=== PATIENT | male | born 1970 | race African-American/Black ===

== ENCOUNTER → 2017-07-01 10:22 | Outpatient (CLI) | payer OTHER, SELFPAY ==
[2017-07-01 11:30] LABS: Erythrocyte Sedimentation Rate 5 mm/hr (0-15)
[2017-07-01 12:14] LABS: Alanine Aminotransferase 55 U/L (12-78); Albumin Level 4.1 gm/dL (3.4-5.0); Albumin/Globulin Ratio 1.1 (1.1-1.8); Alkaline Phosphatase 124 U/L (46-116); Aspartate Amino Transferase 29 U/L (15-37); Bilirubin,Total 0.4 mg/dL (0.2-1.0); Blood Urea Nitrogen 12 mg/dL (7-18); Calcium 8.9 mg/dL (8.5-10.1); Carbon Dioxide 29 mmol/L (21.0-32.0); Chloride 105 mmol/L (98-107); Creatinine,Serum 1.24 mg/dL (0.70-1.30); Estimated Glomerular Filt Rate 62 ml/min (>60); GFR (African American) 76 ML/MIN (>60); Globulin 3.6 gm/dl (1.3-3.2); Glucose 102 mg/dL (74-106); Sodium 142 mmol/L (136-145); Total Protein,Serum 7.7 gm/dL (6.4-8.2); Uric Acid 5.9 mg/dL (2.6-7.2)
[2017-07-01 12:30] LABS: C-Reactive Protein < 0.2 mg/L (0.0-0.9)
[2017-07-02 13:51] LABS: Hemoglobin A1C 5.6 % (0.0-7.0)
[2017-07-04 21:47] LABS: Antinuclear Antibodies, IFA Positive (.)
[2017-07-09 14:03] LABS: RA Latex Turbid. <10.0 IU/mL (0.0-13.9)
== END ==
PROVIDERS: Visit Provider Nurse Practitioner Family
DX: E11.9 Type 2 diabetes mellitus without complications (principal); M25.50 Pain in unspecified joint
CPT/HCPCS: 36415; 80053; 83010; 83036; 84550; 85651; 86038; 86140; 86431

== ENCOUNTER → 2017-07-04 10:37 | Outpatient (CLI) | payer OTHER, SELFPAY ==
--- NOTE | 2017-07-04 10:45 | XR_ITS ---
XR chest 2V HISTORY: ITS.REASON: WHEEZING ORDERING PHYSICIAN: Amy Hahn PATIENT AGE: 46 years COMPARISON: 12/12/2013 FINDINGS: The cardiomediastinal silhouette and pulmonary vascularity are within normal limits. Large calcified subcarinal lymph node a calcified left hilar nodes are once again noted. Lungs are clear of acute infiltrate. Right hemidiaphragm is slightly elevated.. No acute bony abnormalities. IMPRESSION: No change with no acute finding. Calcified mediastinal and hilar lymph nodes
--- NOTE | 2017-07-04 10:45 | XR_ITS ---
XR shoulder RT min 2V HISTORY: ITS.REASON: PAIN IN SHOULDER ORDERING PHYSICIAN: Amy Hahn PATIENT AGE: 46 years COMPARISON: None FINDINGS: No fracture or dislocation. No lytic or blastic change. There is normal mineralization. The joint spaces are well-preserved. No significant degenerative/arthritic changes. No erosive changes evident. IMPRESSION: Negative, no acute finding
--- NOTE | 2017-07-04 10:45 | US_ITS ---
US abdomen limited: HISTORY: Midepigastric pain with abdominal bloating vomiting and diarrhea ITS.REASON: UPPER ABD PAIN ORDERING PHYSICIAN: Amy Hahn PATIENT AGE: 46 years COMPARISON: None FINDINGS: PANCREAS: Unremarkable. No obvious mass or abnormal fluid collection. No ductal dilatation LIVER: The liver poorly demonstrated with increased echogenicity of the liver with poor through transmission of sound consistent with fatty liver. There is questionable calcification in the left lobe however, this may be due to overlying bowel gas. CT of the liver may be of further value. RIGHT KIDNEY: There is a 4 cm cyst along the upper pole the right kidney. No hydronephrosis. Small lower pole cyst is also present at 2 cm. GALLBLADDER: Gallbladder is difficult to image. No obvious gallstones, gallbladder wall thickening, or pericholecystic fluid evident. Common bile duct is normal at 2 mm. IMPRESSION: 1. Somewhat limited study due to overlying bowel gas and fatty liver. 2. Fatty liver. 3. Right renal cysts 4. No definite gallstones
--- NOTE | 2017-07-04 10:45 | XR_ITS ---
XR shoulder LT min 2V HISTORY: ITS.REASON: PAIN IN SHOULDER ORDERING PHYSICIAN: Amy Hahn PATIENT AGE: 46 years COMPARISON: None FINDINGS: No fracture or dislocation. No lytic or blastic change. There is normal mineralization. The joint spaces are well-preserved. No significant degenerative/arthritic changes. No erosive changes evident. IMPRESSION: Negative, no acute finding
== END ==
PROVIDERS: Family Provider Nurse Practitioner; PCP Family Medicine; Visit Provider Nurse Practitioner Family
DX: R10.10 Upper abdominal pain, unspecified (principal); R06.2 Wheezing; M25.512 Pain in left shoulder; M25.511 Pain in right shoulder; J45.30 Mild persistent asthma, uncomplicated
CPT/HCPCS: 71046; 73030; 76705

== ENCOUNTER → 2018-02-25 12:53 | Outpatient (CLI) | payer BC, SELFPAY ==
--- NOTE | 2018-02-25 13:06 | MR_ITS ---
MR cervical spine wo con, MR 3-d myelogram/MRCP HISTORY: Tingling, numbness bilateral hands, arms, and shoulders. Bilateral arm weakness. RT sided neck pain. X 1 TR. . ITS.REASON: CERVICAL PAIN ORDERING PHYSICIAN: Amber Anderson PATIENT AGE: 47 years Comparison: X-RAY 07-16-16 TECHNIQUE: Standard multiplanar multiecho sequences are performed without contrast. 3-D MIP and myelographic images are also rendered and reviewed FINDINGS: There is normal alignment. The craniocervical junction has an unremarkable appearance. C2-C3: Mild facet and uncovertebral hypertrophy with mild bilateral foraminal narrowing. C3-C4: Mild bulging disc along with facet and uncovertebral hypertrophy with moderate bilateral foraminal narrowing right greater than left. There is mild narrowing of the canal at 10 mm. C4-C5: There is a small right paracentral/foraminal disc protrusion causing narrowing of the right foramen. C5-C6: Degenerative disc disease with bulging disc with uncovertebral hypertrophy on the right with right-sided foraminal narrowing. Borderline narrowing of the canal C6-C7: Degenerative disc disease with bulging disc eccentric to the left with associated endplate hypertrophic change with moderate to severe left-sided foraminal narrowing and left lateral recess narrowing. Borderline narrowing of the canal C7-T1: Unremarkable. IMPRESSION: 1. Multilevel cervical spondylosis with degenerative disc disease, bulging disc, and facet and uncovertebral hypertrophy with mild narrowing of the canal and lateral recess and foraminal narrowing. PLEASE SEE ABOVE FOR DETAILED DESCRIPTION AT EACH LEVEL. 2. Small right paracentral/foraminal disc protrusion at C4-C5. 3. No extruded herniated disc
--- NOTE | 2018-02-25 14:32 | CA_ITS ---
PROCEDURE: 2-D M-mode and color Doppler study INDICATIONS FOR THE TEST: Chest pain+ COPD Heart Murmur Tobacco Smoking Palpitations Fatigue Syncope Edema Hypertension+Diabetes Mellitus Rheumatic Fever SOB+FRASER Obesity Hyperlipidemia Family History HD Additional History PATIENT INFORMATION HEIGHT: 72 WEIGHT:237 GENDER: Male B/P:169/93 2-D/M-MODE INTERPRETATION: 2-D MEASUREMENTS OBSERVED VALUES IN CMS Right Ventricular Dimension (RVDd) 1.4 Interventricular Septum (Thickness)(IVsd) 1.2 Left Ventricular Internal Dimensions(LVIDd) 4.8 Left Ventricular Posterior Wall (Thickness)(LVPWd) 1.1 Aortic Root 3.0 Aortic Cusp Separation 2.2 Left Atrial Dimensions (LAD) 3.5 2D 1. Left atrium is mildly enlarged, left ventricle is normal size, mild concentric left ventricular hypertrophy, visually estimated ejection fraction of 55% with no regional wall motion abnormality. 2. The right atrium and right ventricle are normal size and contractility. 3. The aortic valve is minimally thickened and fibrosed. 4. The mitral and tricuspid valve are grossly normal. 5. The pulmonic valve is poorly visualized. 6. No significant pericardial effusion noted. DOPPLER INTERROGATION: Doppler interrogation of the aortic, mitral and tricuspid valvular presence of mild mitral and tricuspid regurgitation, tricuspid regurgitation jet velocity is inadequate for calculation of the right ventricular systolic pressure, grade 1 diastolic dysfunction seen with tissue Doppler evidence of raised left atrial pressure. CONCLUSION: 1. Mildly enlarged left atrium, normal left ventricular size, mild concentric left ventricular hypertrophy, visually estimated ejection fraction of 55% with no regional wall motion abnormality, grade 1 diastolic dysfunction seen with tissue Doppler evidence of raised left atrial pressure. 2. Mild mitral and tricuspid regurgitation 3. No significant pericardial effusion noted.
== END ==
PROVIDERS: PCP Nurse Practitioner; Visit Provider Nurse Practitioner
DX: R06.02 Shortness of breath (principal); R07.89 Other chest pain; M54.2 Cervicalgia; R20.8 Other disturbances of skin sensation
CPT/HCPCS: 72141; 76376; 93017; 93306

== ENCOUNTER → 2018-05-09 11:03 | Outpatient (CLI) | payer BC, OTHER, SELFPAY | PROVIDERS: PCP Family Medicine; Visit Provider Nurse Practitioner Family | DX: R06.02 Shortness of breath (principal) | CPT/HCPCS: 94060 ==

== ENCOUNTER → 2019-01-14 07:55 | Outpatient (CLI) | payer BC, OTHER, SELFPAY ==
[2019-01-14 08:41] LABS: Basophils % 0.6 % (0.1-2.0); Eosinophils # 0.2 K/mm3 (0.0-0.4); Eosinophils % 2.7 % (0.1-12.0); Hematocrit 44.8 % (42.0-52.0); Hemoglobin 14.7 g/dL (14.1-18.0); Lymphocytes # 2.7 K/mm3 (0.7-4.5); Lymphocytes % 33.5 % (10-50); Mean Corpuscular HGB Conc 32.8 g/dL (31.8-35.4); Mean Corpuscular Volume 88.3 fl (80-94); Mean Platelet Volume 8.2 fl (7.4-10.4); Monocytes # 0.4 K/mm3 (0.1-1.0); Monocytes % 5.5 % (1.7-9.3); Neutrophils # 4.6 K/mm3 (1.8-7.8); Neutrophils % 57.8 % (37.0-80.0); Platelet Count 216 K/mm3 (142-424); Red Blood Count 5.08 M/mm3 (4.60-6.20); Red Cell Distribution Width 13.6 % (11.5-17.5); White Blood Count 7.9 K/mm3 (4.8-10.8)
[2019-01-14 11:24] LABS: Hemoglobin A1C 5.9 % (0.0-7.0)
[2019-01-14 11:41] LABS: Alanine Aminotransferase 37 U/L (12-78); Albumin Level 3.8 gm/dL (3.4-5.0); Albumin/Globulin Ratio 1.2 (1.1-1.8); Alkaline Phosphatase 113 U/L (46-116); Anion Gap 10.7 mEq/L (5-15); Aspartate Amino Transferase 29 U/L (15-37); Bilirubin,Total 0.4 mg/dL (0.2-1.0); Blood Urea Nitrogen 14 mg/dL (7-18); Calcium 8.3 mg/dL (8.5-10.1); Carbon Dioxide 30 mmol/L (21.0-32.0); Chloride 106 mmol/L (98-107); Chol/HDL Ratio 2.8 (1-3.5); Cholesterol 154 mg/dL (140-200); Creatinine,Serum 1.24 mg/dL (0.70-1.30); Estimated Glomerular Filt Rate 62 ml/min (>60); GFR (African American) 75 ML/MIN (>60); Globulin 3.1 gm/dl (1.3-3.2); Glucose 92 mg/dL (74-106); HDL Cholesterol 55 mg/dL (27-67); LDL Cholesterol 91 mg/dL (0-130); Potassium 3.7 mmoL/L (3.5-5.1); Sodium 143 mmol/L (136-145); Thyroid Stimulating Hormone 1.81 uIU/ml (0.358-3.740); Total Protein,Serum 6.9 gm/dL (6.4-8.2); Triglycerides 39 mg/dL (30-200); VLDL Cholesterol 8 mg/dL (0-40)
[2019-01-14 11:42] LABS: C-Reactive Protein < 0.2 mg/dL (0.0-0.9)
[2019-01-27 13:25] LABS: Antinuclear Antibodies (ANA) NEGATIVE
== END ==
PROVIDERS: Visit Provider Nurse Practitioner Family
DX: I10 Essential (primary) hypertension (principal); R20.0 Anesthesia of skin; E11.9 Type 2 diabetes mellitus without complications
CPT/HCPCS: 36415; 80053; 80061; 83036; 83735; 84443; 85025; 86038; 86140

== ENCOUNTER → 2019-01-26 08:05 | Outpatient (POV) | payer BC, OTHER, SELFPAY | PROVIDERS: Visit Provider Specialist | DX: M79.601 Pain in right arm (principal); M79.605 Pain in left leg; M79.604 Pain in right leg; R20.0 Anesthesia of skin | CPT/HCPCS: 95886; 95910 ==

== ENCOUNTER → 2019-02-11 15:15 | Outpatient (CLI) | payer BC, SELFPAY ==
--- NOTE | 2019-02-11 15:17 | MR_ITS ---
PROCEDURE: MR CERVICAL SPINE WO CON CLINICAL INDICATION: CERVICAL RADICULOPATHY Lost feeling in the right shoulder and neck, right-sided neck pain and burning with tingling in the right arm and hand COMPARISON: SPCERVWO MR cervical spine wo con from 02/25/2018 TECHNIQUE: Standard multiplanar multiecho sequences are performed without contrast. 3-D MIP and myelographic images are also rendered and reviewed FINDINGS: There is straightening of the cervical lordosis. The cranial cervical junction has an unremarkable appearance. C2-C3: Mild bilateral foraminal narrowing from mild uncovertebral hypertrophy. There is congenital narrowing of the canal at 10 mm. C3-C4: Mild degenerative disc disease with bulging disc along with uncovertebral hypertrophy with canal stenosis and moderate bilateral foraminal narrowing. There is a small left paracentral/foraminal disc protrusion causing moderate left lateral recess narrowing. C4-C5: Bilateral uncovertebral hypertrophy with bilateral lateral recess and foraminal narrowing and borderline narrowing of the canal at 12 mm C5-C6: Degenerative disc disease with bilateral lateral recess and foraminal narrowing from uncovertebral hypertrophy. There is mild bulging disc at this level with small uncovertebral disc osteophyte complexes on both sides slightly more prominent on the left and unchanged on the right from the previous exam. There is slight decreased T1 and increased T2 signal involving the C6 vertebral body superiorly not significantly changed. There is borderline canal stenosis at C5-C6 with minimal indentation of the spinal cord anteriorly not significantly changed. C6-C7 degenerative disc disease with bulging disc with a small left uncovertebral disc osteophyte complex causing moderate left lateral recess and foraminal narrowing not significantly changed. Borderline canal stenosis C7-T1: Unremarkable No extruded herniated disc are evident. IMPRESSION: Abnormal MRI of the cervical spine with multilevel cervical spondylosis with degenerative disc disease, bulging disc, and small disc osteophyte complexes with lateral recess and foraminal narrowing and canal stenosis as described above. Please see above for detailed description at each level. No extruded herniated disc evident Dictated by: Modesto Walter MD 02/12/2019 12:58 Electronically signed by Modesto Walter MD in [place] 02/12/2019 12:58
== END ==
PROVIDERS: Visit Provider Nurse Practitioner Family
DX: M54.12 Radiculopathy, cervical region (principal)
CPT/HCPCS: 72141; 76376

== ENCOUNTER → 2019-02-25 08:36 | Outpatient (CLI) | payer BC, SELFPAY ==
--- NOTE | 2019-02-25 08:38 | MR_ITS ---
PROCEDURE: MR LUMBAR SPINE WO CON CLINICAL INDICATION: CHRONIC LUMBAR RADICULOPATHY Low back pain worsening low back pain with bilateral leg pain. COMPARISON: LS5 LUMBAR SPINE 5 VIEWS from 07/16/2016 MR CERVICAL SPINE WO CON from 02/11/2019 TECHNIQUE: Standard multiplanar multiecho sequences are performed without contrast. 3-D MIP and myelographic images are also rendered and reviewed FINDINGS: Spinal cord ends at the T12-L1 level. T12-L1: Mild degenerative disc disease with mild facet and ligamentum hypertrophy. L1-L2: Degenerate disc disease with bulging disc and endplate hypertrophy with moderate facet and ligamentum hypertrophy and moderate bilateral lateral recess and foraminal narrowing. Minimal retrolisthesis of L1 of 3 mm. L2-L3: Mild facet ligamentum hypertrophy L3-L4: There is degenerative disc disease with 3 mm anterolisthesis of L3 with bulging disc and endplate hypertrophy with moderate bilateral lateral recess and severe bilateral foraminal narrowing. Borderline canal stenosis. L4-5: Degenerate disc disease with bulging disc and endplate hypertrophic change. There is 4 mm anterolisthesis of L4. Severe facet and ligamentum hypertrophy is present with canal stenosis at this level and with severe bilateral lateral recess and foraminal narrowing. The foraminal narrowing slightly greater on the right compared to the left. L5-S1: Degenerate disc disease with bulging disc and a broad-based central left paracentral disc protrusion/disc osteophyte complex.. There is impingement upon the anterior left aspect of the thecal sac with left-sided foraminal narrowing and impingement upon the left S1 nerve root. There is severe left lateral recess narrowing and moderate to severe bilateral foraminal narrowing. Canal stenosis is present at this level secondary to the disc osteophyte complex Incidental note is made of bilateral renal cysts IMPRESSION: 1. Abnormal MRI of the lumbar spine with multilevel lumbar spondylosis with degenerative disc disease, bulging disc, disc osteophyte complexes, along with facet ligamentum hypertrophy. Please see above for detailed description at each level. 2. L1-L2: Degenerate disc disease with bulging disc and endplate hypertrophy with moderate facet and ligamentum hypertrophy and moderate bilateral lateral recess and foraminal narrowing. Minimal retrolisthesis of L1 of 3 mm. 3. The L3-L4: There is degenerative disc disease with 3 mm anterolisthesis of L3 with bulging disc and endplate hypertrophy with moderate bilateral lateral recess and severe bilateral foraminal narrowing. Borderline canal stenosis. 4. L4-5: Degenerate disc disease with bulging disc and endplate hypertrophic change. There is 4 mm anterolisthesis of L4. Severe facet and ligamentum hypertrophy is present with canal stenosis at this level and with severe bilateral lateral recess and foraminal narrowing. The foraminal narrowing slightly greater on the right compared to the left. 5. L5-S1: Degenerate disc disease with bulging disc and a broad-based central left paracentral disc protrusion/disc osteophyte complex.. There is impingement upon the anterior left aspect of the thecal sac with left-sided foraminal narrowing and impingement upon the left S1 nerve root. There is severe left lateral recess narrowing and moderate to severe bilateral foraminal narrowing. Canal stenosis is present at this level secondary to the disc osteophyte complex Dictated by: Modesto Walter MD 02/27/2019 09:58 Electronically signed by Modesto Walter MD in [facility] 02/27/2019 09:58
== END ==
PROVIDERS: PCP Nurse Practitioner Family; Visit Provider Nurse Practitioner Family
DX: M54.16 Radiculopathy, lumbar region (principal)
CPT/HCPCS: 72148; 76376

== ENCOUNTER → 2019-03-02 09:08 | Outpatient (CLI) | payer BC, SELFPAY ==
--- NOTE | 2019-03-02 09:16 | XR_ITS ---
PROCEDURE: XR WRIST RT MIN 3V CLINICAL INDICATION: Rt cts Pain and numbness COMPARISON: No exams were available for comparison FINDINGS: No fracture, dislocation, lytic change, or blastic change evident. No significant degenerative change IMPRESSION: No acute findings. Dictated by: Modesto Walter MD 03/02/2019 12:45 Electronically signed by Modesto Walter MD in [facility] 03/02/2019 12:45
== END ==
PROVIDERS: PCP Family Medicine; Visit Provider Orthopaedic Surgery
DX: G56.01 Carpal tunnel syndrome, right upper limb (principal)
CPT/HCPCS: 73110

== ENCOUNTER → 2019-06-03 15:23 | Outpatient (CLI) | payer SELFPAY ==
--- NOTE | 2019-06-03 15:23 | CT_ITS ---
PROCEDURE: CT HEART W CALCIUM SCORE Patient Age:48Y CLINICAL HISTORY: dyspnea Short of breath. Nonsmoker. Heart rate in 90s during scan COMPARISON: ABDPELW/O CT ABD PELVIS W/O CONTRAST from 07/18/2016 CXR2V XR chest 2V from 07/04/2017 TECHNIQUE: Series of low-dose helical images obtained through the heart with calcium scoring performed. All CT scans at the facility use one or more dose reduction, viz: automated exposure control, ma/kV adjustment per patient size (including targeted exams where dose is matched to indication, i.e. head), or iterative reconstruction technique. FINDINGS: The calcium score = 0. No identifiable atherosclerotic plaque. This compatible with very low cardiovascular disease risk I would incidentally note very large prominent calcified mediastinal and hilar nodes reflecting old granulomatous disease. In fact the very large node seen today subcarinal region measures 5.5 cm transverse, 2.5 cm AP, (and 5 cm height on previous 2018 the a chest film). There is also a prominent 2.5 cm calcified left hilar node, inferior left kris Aortic root measures 3.9-4 cm and overall appear satisfactory IMPRESSION: 1...Total calcium score = 0. No identifiable atherosclerotic plaque. This compatible with very low cardiovascular disease risk 2. Incidental large old granulomatous nodes: Very large 5 cm diameter subcarinal lymph node; with 2.5 cm diameter left hilar node but these have been seen on multiple and reflect benign granulomatous disease. Dictated by: Johan Wiley MD 06/08/2019 13:26 Electronically signed by Johan Wiley MD in [facility] 06/08/2019 13:26
== END ==
PROVIDERS: PCP Family Medicine; Visit Provider Internal Medicine Cardiovascular Disease
DX: R06.09 Other forms of dyspnea (principal); I10 Essential (primary) hypertension; R20.0 Anesthesia of skin; Z13.6 Encounter for screening for cardiovascular disorders
CPT/HCPCS: 75571

== ENCOUNTER → 2019-06-11 08:38 | Outpatient (CLI) | payer BC, SELFPAY ==
[2019-06-11 10:56] LABS: Chloride 92 mmol/L (98-107); Potassium 4.3 mmoL/L (3.5-5.1); Sodium 131 mmol/L (136-145)
[2019-06-11 10:59] LABS: Anion Gap 17.3 mEq/L (5-15); Blood Urea Nitrogen 27 mg/dl (9-20); Calcium 9.5 mg/dl (8.4-10.2); Carbon Dioxide 26 mmol/L (22.0-30.0); Estimated Glomerular Filt Rate 46 ml/min (>60); GFR (African American) 56 ML/MIN (>60)
[2019-06-11 11:09] LABS: NT Pro Brain Natriuretic Pep. 17.5 pg/mL (0-125)
[2019-06-11 11:41] LABS: Glucose 607 mg/dl (74-100)
== END ==
PROVIDERS: Visit Provider Internal Medicine Cardiovascular Disease
DX: R06.09 Other forms of dyspnea (principal); I10 Essential (primary) hypertension; R20.0 Anesthesia of skin; G47.33 Obstructive sleep apnea (adult) (pediatric); G47.9 Sleep disorder, unspecified; R06.83 Snoring; R40.0 Somnolence
CPT/HCPCS: 36415; 80048; 83880

== ENCOUNTER → 2019-07-08 11:39 | Outpatient (CLI) | payer BC, SELFPAY ==
[2019-07-09 13:17] LABS: Testosterone,Total 308 ng/dL (264-916)
== END ==
PROVIDERS: Visit Provider Nurse Practitioner
DX: N52.9 Male erectile dysfunction, unspecified (principal)
CPT/HCPCS: 36415; 84403

== ENCOUNTER 2019-09-28 08:00 | Outpatient (RCR) | payer BC, SELFPAY | END 2019-09-28 08:05 | disposition home or self-care (01) | LOC: PT 08:00 | PROVIDERS: PCP Family Medicine; Visit Provider Neurological Surgery | DX: M54.2 Cervicalgia (principal); M54.5 Low back pain | CPT/HCPCS: 97010; 97014; 97035; 97110; 97163; G0283 ==

== ENCOUNTER → 2020-01-16 10:18 | Outpatient (CLI) | payer BC, SELFPAY ==
--- NOTE | 2020-01-16 10:35 | XR_ITS ---
PROCEDURE: XR LUMBAR SPINE MIN 4V CLINICAL INDICATION: RIGHT HIP PAIN And low back pain COMPARISON: CR LS5 LUMBAR SPINE 5 VIEWS from 07/16/2016 FINDINGS: All lumbar vertebrae appear intact. There is disc space narrowing at the L3-4 level and in addition there is slight 2-3 mm anterior listhesis of L3 on L4 stable and unchanged from the previous exam 07/16/2016 there appear to be defects of the pars interarticularis bilaterally at this level. There is similar 2-3 mm anterolisthesis of L4 on L5 without pars defects. However there are hypertrophic facet changes at L 4 5 and L5-S1. There is moderate sclerosis of the SI joints right side greater than left. IMPRESSION: No acute findings. Degenerate disc disease L3-4 and stable spondylolisthesis L3 on L4 along with degenerate facet changes L4-5 and L5-S1 and mild sacroiliitis bilaterally as noted Dictated by: Dr. Umair Portillo MD 01/16/2020 11:13 Dr. Umair Portillo MD in [place] 01/16/2020 11:13
--- NOTE | 2020-01-16 10:35 | XR_ITS ---
PROCEDURE: XR HIP RT 2-3V W/PELVIS CLINICAL INDICATION: RIGHT HIP PAIN COMPARISON: CR [id number] HIP LT 2-3V W/PELVIS IF PERFOR from 07/16/2016 FINDINGS: There is minor asymmetrical joint space narrowing of the right hip, no significant narrowing seen left hip. There is a small to moderate size osteophytic spur right superior lateral acetabulum. There is mild sclerosis of the right SI joint similar to the previous exam. The iliac bones and pubic bones appear intact. IMPRESSION: Minor osteoarthritic change right hip and minor right sacroiliitis Dictated by: Dr. Umair Portillo MD 01/16/2020 11:26 Dr. Umair Portillo MD in [place] 01/16/2020 11:26
== END ==
PROVIDERS: PCP Nurse Practitioner; Visit Provider Nurse Practitioner
DX: M54.5 Low back pain (principal); M25.551 Pain in right hip
CPT/HCPCS: 72110; 73502

== ENCOUNTER → 2020-08-10 07:59 | Outpatient (CLI) | payer BC, SELFPAY ==
[2020-08-10 09:25] LABS: Coronavirus 19 IgG Antibody Negative (Negative); Coronavirus 19 IgM Antibody Negative (Negative)
== END ==
PROVIDERS: Visit Provider Internal Medicine Gastroenterology
DX: Z01.812 Encounter for preprocedural laboratory examination (principal); Z20.822 Contact with and (suspected) exposure to COVID-19; Z12.11 Encounter for screening for malignant neoplasm of colon
CPT/HCPCS: 36415; 86328

== ENCOUNTER 2020-08-12 06:58 | Day surgery (SDC) | payer BC, SELFPAY ==
[2020-08-08 15:00] VITALS: BMI 32.5
[2020-08-12] VITALS (7 sets, daily range): BP systolic 119–155; BP diastolic 73–104; PULSE 58–75; RESP 20; TEMP 36.2–36.4; O2SAT 95–99
[2020-08-12 07:27] LABS: POC Glucose,Bedside 90 (70-110)
--- NOTE | 2020-08-12 08:12 | P.PCN_ITS ---
[facility] Procedure Note Procedure Note:: Colonoscopy Procedure Report: Colonoscopy with cold snare polypectomy Endoscopist: Rober Montoya II, MD Referring physician: Sergo Guadarrama MD Date of Procedure: August 12, 2020 Equipment: Olympus 190 variable stiffness pediatric colonoscope Sedation: MAC sedation Indication: Mr. Chan is a 49-year-old gentleman who is here for diagnostic colonoscopy. He has had moderate bloating, gassiness and rectal pain and pressure. This first occurred after his prostate digital exam by Dr. Martinez 2 years ago. This recurred recently. He does have obstipation/incomplete defecation with longer periods of time on the commode and excessive wiping. He does state that his bowel function is otherwise regular. He reports no rectal bleeding, abdominal pain, weight loss or family history of colon cancer. This is his first colonoscopy. Procedure: Prior to the procedure, a history and physical exam was performed, and patient's medications and allergies were reviewed. The risks, benefits and alternatives of the sedation and procedure were discussed with the patient. All questions were answered and informed consent was obtained. The patient was brought to the procedure room. Patient identification and proposed procedure were verified by the physician and the nurse. The patient was placed in a left lateral decubitus position and the scope was passed under direct vision. Throughout the procedure, the patient's blood pressure, pulse, and oxygen saturations were monitored continuously. The colonoscopy was accomplished without difficulty. The patient tolerated the procedure well. Findings: On digital rectal examination there was normal rectal tone. There were no external hemorrhoids. The prostate was 2-3+, smooth, soft, symmetric without nodules. The colonoscope was introduced through the anal canal to the rectum and advanced to the cecum. The ileocecal valve and appendiceal orifice were identified. The scope was advanced a short distance into the ileum which appeared grossly normal. The scope was then withdrawn into the colon. The cecum, ascending and transverse colon and mucosa were grossly normal. There were 2 diminutive polyps (3 and 4 mm) in the descending colon both of which were removed via cold snare polypectomy. There were scattered diverticuli throughout the descending and sigmoid colon (LEFT colon). The rectum itself was normal. Upon retroflexion within the rectum there were grade 1-2 internal hemorrhoids. The preparation was excellent throughout with Brooks Preparation Score of 9. The cecal time was 12 minutes. Impression: 1. Diminutive colonic polyps x2 2. Left-sided diverticulosis 3. Grade 1-2 internal hemorrhoids Plan: I will follow up the polyp histology and recommend repeat screening/surveillance colonoscopy again in 7 to 10 years based upon the pathology. I do feel the patient has obstipation related symptoms. We will discuss dietary measures and fiber bowel regimen.
--- NOTE | 2020-08-12 08:22 | P.PN_ITS ---
[facility] Anesthesia Checklist - Structural Data Admitted From: Home Planned Operative Procedure/s: colonoscopy Consent for Planned Operative Procedure(s) Verified: Yes - Airway Assessment C-Spine Mobility Assessed: Yes TMJ Mobility Assessed: Yes Dentition: Good Dentition - Neurological Assessment Level of Consciousness: Awake, Alert, Appropriate - Anesthesia Plan Anesthesia Risk discussed: Yes Anesthesia Plan: Verified ASA Class: III Anesthesia Type: MAC [facility] History I have reviewed the patient's past medical history: Yes Medical History: Reports:: Asthma, Diabetes Mellitus Type 2, Gastroesophageal Reflux Disease(GERD), Hypertension Denies:: Cancer, Diabetes Mellitus Type 1, Internal Pacemaker, MRSA, Seizures *Have you ever received a pneumonia vaccine?: No *Have you received a flu vaccine this season?: No Other Medical History: Reports: Arthritis Anesthesia experience/problems:: none Laterality Cases: Left: Arthroscopy Knee, Carpal Tunnel Release Other Surgeries: No: Pacemaker Amputation: No Fractures: No - *Social History Last grade of school completed: High school graduate Smoking Status: Current every day smoker Tobacco Type: cigarettes # Packs/Day (cigarettes): 1 Alcohol Intake: current Alcohol Intake Frequency:: a few times a week Substance Use Type: denies use *Occupational Status:: employed Housing: house Household Members: none *Travel in the last 8 weeks: None Family Hx:: Cancer
== END 2020-08-12 09:18 | disposition home or self-care (01) ==
LOC: OUTP 06:59
PROVIDERS: PCP Family Medicine; Visit Provider Internal Medicine Gastroenterology
PROC: 0DJD8ZZ Inspection of Lower Intestinal Tract, Via Natural or Artificial Opening Endoscopic (ICD-10-PCS; CPT 45378; principal; 2020-08-12 08:00)
DX: K63.5 Polyp of colon; K57.30 Diverticulosis of large intestine without perforation or abscess without bleeding; K64.0 First degree hemorrhoids; I10 Essential (primary) hypertension; E11.9 Type 2 diabetes mellitus without complications; J45.909 Unspecified asthma, uncomplicated; Z72.0 Tobacco use; Z91.041 Radiographic dye allergy status; Z79.84 Long term (current) use of oral hypoglycemic drugs; Z79.899 Other long term (current) drug therapy
CPT/HCPCS: 45385; 82962

== ENCOUNTER 2020-12-12 11:43 | Emergency (ER) | payer BC, SELFPAY ==
[2020-12-12 14:00] VITALS: BP 185/98; PULSE 87; RESP 21; TEMP 36.8; O2SAT 100; BMI 32.5
--- NOTE | 2020-12-12 14:34 | HMH.EDUTC ---
[facility] [place] Disposition Clinical Impression: Close exposure to COVID-19 virus Disposition: Home, Self-Care Condition on Discharge: Good Instructions: DI for COVID-19 (Suspected or Confirmed ), Preventing the Spread of Coronavirus Discharge Instructions Additional Instructions: *Monitor Temp, Over the counter Motrin or Tylenol as directed/as needed Tylenol every 4 hours and Motrin every 6 hours (as long as your family doctor has told you that you can take it) for fever or pa-in. and straight to ER if unable to lower temp less than 101.0 after medication given Follow up IMMEDIATELY for new or worsening symptoms or no Noticeable improvement over the next 48-72 hours. 911 for difficulty breathing or swallowing You were tested for today for COVID19 your test result should be back in the next 24-48 hours, Check the [facility] Portal to see if your test results are back in the next 48 it may say detected that means your result is positive.You was given handout instructions on how log on and see your results. If you do not have internet access you may call the [facility] for your results [phone] You was given a handout with instructions for Self Quarantine and Self isolation for while you wait on test results and what to do if they are positive If you are positive the Health Dept will be contacting you also Make sure to take your Vitamins Vit. C Vit D and Zinc if you can take them Referrals: Onofre Acosta MD [Primary Care Provider] - As needed Forms: Work/School Release Time of Disposition: 14:35 Medical Decision Making - Bobby Inquiry Pt receiving controlled substance: No Bobby was queried for this patient: No Vital Signs: 12/12/20 14:00 Temperature 98.2 F Temperature Source Oral Pulse Rate [Right Brachial] 87 Respiratory Rate 21 Blood Pressure [Right Arm] 185/98 H Blood Pressure Mean [Right Arm] 127 Blood Pressure Source [Right Arm] Automatic Cuff Blood Pressure Position [Right Arm] Sitting 02 Sat by Pulse Oximetry 100 Oxygen Delivery Method Room Air Orders (Tests/Meds): ORDERS Category Date Time Status Covid-19 Nasal PCR ([facility]) Routine Lab 12/12/20 14:00 Received [facility] [place] HPI - General Stated complaint: Covid test; headaches Time Seen by Provider: 12/12/20 14:34 Mode of Arrival: Ambulatory Source of Information: Patient Limitations: No Limitations Description of Symptoms (Recalled from Triage Doc. by RN): COVID TEST D/T EXPOSURE, DENIES SYMPTOMS HEENT Symptoms (Recalled from RN notes): No Resp Symptoms (Recalled from RN notes): No Skin Symptoms (Recalled from RN notes): No MS Symptoms (Recalled from RN notes): No Functional Status (Recalled from RN notes): WNL - History of Present Illness Provider Complaint: Patient state that he was recently around someone that tested postive for COVID States that he has been feeling a little achy and having headache so he wanted to come in and get tested for COVID - Related Data Home Medications Medication Instructions Recorded Confirmed albuterol sulfate 90 mcg/actuation 1 inh INHALATION Q4-6H PRN 07/15/18 08/08/20 breath activated powder inhaler cyclobenzaprine 10 mg tablet 10 mg PO TID 03/02/19 08/08/20 fluticasone propionate 50 2 spray INTRANASAL DAILY 03/02/19 08/08/20 mcg/actuation nasal spray,suspension omeprazole 20 mg capsule,delayed 20 mg PO DAILY 03/02/19 08/08/20 release gabapentin 100 mg capsule 300 mg PO TID cap 05/28/19 08/08/20 hydrocodone 5 mg-acetaminophen 325 1 tab PO Q4H PRN tab 05/28/19 08/08/20 mg tablet Dapagliflozin Propanediol [Farxiga] 10 mg PO DAILY 08/08/20 08/08/20 Losartan Potassium [Cozaar 100mg 100 mg PO DAILY 08/08/20 08/08/20 Tablets] Meloxicam 15 mg PO DAILY 08/08/20 08/08/20 Metformin HCl [Metformin HCl ER] 750 mg PO BID 08/08/20 08/08/20 Metoprolol Succinate 100 mg PO DAILY 08/08/20 08/08/20 hydroCHLOROthiazide 12.5 mg PO DAILY 08/08/20 08/08/20 [Hydrochlorothiazide 12.5mg Tab] Amlodipine Besylate See R
[2020-12-12 14:40] VITALS: BP 185/98; PULSE 87; RESP 21; TEMP 36.8; O2SAT 100
== END 2020-12-12 14:45 | disposition home or self-care (01) ==
PROVIDERS: Emergency Provider Nurse Practitioner; PCP Family Medicine
DX: Z20.822 Contact with and (suspected) exposure to COVID-19 (principal); R51.9 Headache, unspecified; E11.9 Type 2 diabetes mellitus without complications; K21.9 Gastro-esophageal reflux disease without esophagitis; I10 Essential (primary) hypertension; F17.210 Nicotine dependence, cigarettes, uncomplicated
CPT/HCPCS: 99202; G0463; U0003

== ENCOUNTER → 2020-12-29 20:27 | Outpatient (CLI) | payer BC, SELFPAY | PROVIDERS: Visit Provider Nurse Practitioner Family | DX: Z20.822 Contact with and (suspected) exposure to COVID-19 (principal); U07.1 COVID-19 | CPT/HCPCS: C9803; U0003; U0005 ==

== ENCOUNTER → 2021-03-21 16:35 | Outpatient (CLI) | payer BC, SELFPAY | PROVIDERS: PCP Family Medicine; Visit Provider Nurse Practitioner Family | DX: Z20.822 Contact with and (suspected) exposure to COVID-19 (principal); R05.1 Acute cough | CPT/HCPCS: C9803; U0003; U0005 ==

== ENCOUNTER → 2021-03-23 09:09 | Outpatient (CLI) | payer BC, SELFPAY ==
--- NOTE | 2021-03-23 09:27 | XR_ITS ---
PROCEDURE: XR CHEST 2V CLINICAL HISTORY: PNEUMONIA COMPARISON: CR CXR CHEST(2 VIEWS-NOT PORTABLE) from 12/12/2013 CR CXR2V XR chest 2V from 07/04/2017 FINDINGS: The cardiomediastinal silhouette and pulmonary vascularity are within normal limits. There is a prominent calcified left hilar lymph node similar to the previous exams. Prominent calcified subcarinal node also present. No lobar consolidation or collapse. No acute bony abnormalities. IMPRESSION: No change no acute finding Dictated by: Modesto Walter MD 03/23/2021 16:56 Modesto Walter MD in OV 03/23/2021 16:56
== END ==
PROVIDERS: PCP Nurse Practitioner Family; Visit Provider Nurse Practitioner Family
DX: J18.9 Pneumonia, unspecified organism (principal)
CPT/HCPCS: 71046

== ENCOUNTER → 2021-08-01 09:23 | Outpatient (CLI) | payer BC, SELFPAY ==
--- NOTE | 2021-08-01 09:28 | MR_ITS ---
FINAL REPORT CLINICAL HISTORY: RADICULOPATHY, CERVICAL REGION. HX NECK SURGERY MAR 2019. RIGHT SIDED NECK PAIN. RIGHT ARM PAIN, NUMBNESS, AND TINGLING WITH BURNING SENSATION. SYMPTOMS [id number]. NO INJURY OR TRAUMA. VERTIGO. COMPARISON: February 11, 2019 FINDINGS: Multiplanar MR imaging of the cervical spine was performed without contrast. There has been interval fusion of C4-C6. On the sagittal T2-weighted images, disc degeneration is seen at multiple levels. There is straightening of the normal cervical curvature which could be due to positioning or muscle spasm. There is no evidence of fracture. The vertebral alignment is normal. The cervical spinal cord has an unremarkable appearance without evidence of mass, edema or syrinx. The cervicomedullary junction is normal. C2-3: There are uncovertebral osteophytes. There is severe right and moderate left neural foraminal narrowing. C3-4: There is a disc osteophyte complex with a left foraminal disc protrusion. There is severe bilateral neural foraminal narrowing. There is mild central canal stenosis with an AP thecal sac diameter of 8 mm. C4-5: There is fusion at this level. There is severe bilateral neural foraminal narrowing. C5-6: There is fusion at this level. There is severe bilateral neural foraminal narrowing. C6-7: There is a disc osteophyte complex. There is severe bilateral neural foraminal narrowing. C7-T1: There is an annular bulge with severe bilateral neural foraminal narrowing. IMPRESSION: Interval fusion of C4-C6. Multilevel degenerative disc disease with areas of neural foraminal narrowing and central canal stenosis as described. Left foraminal disc protrusion at C3-C4. Reviewed, Interpreted and Dictated by Alejandro King III, MD Transcribed by [place] Rooj Authenticated by Alejandro King III, MD on 08/01/2021 11:25:33 AM [facility]
== END ==
PROVIDERS: PCP Nurse Practitioner Family; Visit Provider Nurse Practitioner Acute Care
DX: M54.12 Radiculopathy, cervical region (principal)
CPT/HCPCS: 72141; 76376

== ENCOUNTER → 2021-08-18 13:45 | Outpatient (CLI) | payer BC, SELFPAY ==
--- NOTE | 2021-08-18 13:47 | MR_ITS ---
FINAL REPORT TECHNIQUE: Multiplanar and multisequence imaging of the lumbar spine was obtained without contrast. CLINICAL HISTORY: DDD, LUMBAR. prior hx laiminectomy. chronic pain and tingling bilateral extremities. COMPARISON: 02/25/2019 FINDINGS: There is grade 1 anterolisthesis of L3 on L4, unchanged from prior exam. Vertebral alignment is otherwise normal. Vertebral body height is preserved. The spinal cord ends at the level of L1. There is normal signal intensity within the substance of the distal spinal cord. There are degenerative endplate changes at L5-S1. Remaining bone marrow signal intensity is normal. There are bilateral T2 hyperintense renal lesions, likely cysts. No acute paraspinal abnormality is identified. L1-2: Broad-based disc osteophyte complex resulting and mild to moderate central canal stenosis. There is mild right and moderate to severe left neural foraminal narrowing. Findings are unchanged from prior exam. L2-3: Mild disc osteophyte complex without central canal stenosis. There is moderate to severe left and mild right neural foraminal narrowing, unchanged from prior exam. L3-4: Broad-based disc osteophyte complex with moderate central canal stenosis and severe bilateral neural foraminal narrowing, unchanged from prior exam. L4-5: Broad-based disc osteophyte complex with severe central canal stenosis, severe right and moderate left neural foraminal narrowing, unchanged from prior exam. L5-S1: Central disc protrusion superimposed on disc osteophyte complex with moderate central canal stenosis. There is moderate right and severe left neural foraminal narrowing. Findings are unchanged from prior exam. IMPRESSION: Stable, multilevel degenerative disc disease and grade 1 anterolisthesis of L3 on L4. Reviewed, Interpreted and Dictated by Candelaria Raya MD Transcribed by Cheri Alvarado Authenticated by Candelaria Raya MD on 08/18/2021 04:30:28 PM [facility]
== END ==
PROVIDERS: PCP Nurse Practitioner Family; Visit Provider Nurse Practitioner Family
DX: M51.36 Other intervertebral disc degeneration, lumbar region (principal); M54.32 Sciatica, left side; M54.42 Lumbago with sciatica, left side
CPT/HCPCS: 72148; 76376

== ENCOUNTER → 2021-09-04 11:33 | Outpatient (CLI) | payer BC, SELFPAY | PROVIDERS: PCP Family Medicine; Visit Provider Nurse Practitioner Family | DX: Z20.822 Contact with and (suspected) exposure to COVID-19 (principal); R50.9 Fever, unspecified | CPT/HCPCS: C9803; U0003; U0005 ==

== ENCOUNTER 2022-07-15 11:48 | Emergency (ER) | payer BC, SELFPAY ==
[2022-07-15 12:17] VITALS: BP 179/126; PULSE 90; O2SAT 96
[2022-07-15 12:20] VITALS: BP 179/126; PULSE 106; RESP 20; TEMP 36.8; O2SAT 96; BMI 29.8
--- NOTE | 2022-07-15 12:28 | PC.NURSE ---
chucho power @ [facility] with nilesh doing an injection
[2022-07-15 13:02] VITALS: BP 209/133; PULSE 84; O2SAT 98
[2022-07-15 14:01] VITALS: BP 182/112; PULSE 56; RESP 18; O2SAT 98
--- NOTE | 2022-07-15 14:13 | HMH.EDGENADL ---
Discharge Plan Disposition Patient Disposition: Home, Self-Care Condition: Fair Prescriptions Prescriptions: No Action hydrocodone-acetaminophen [[place]] 5-325 mg tablet 1 tab PO Q4H PRN (Reason: pain) albuterol sulfate 90 mcg/actuation aerosol powdr breath activated 1 inh INHALATION Q4-6H PRN (Reason: copd) omeprazole 20 mg capsule,delayed release(DR/EC) 20 mg PO DAILY fluticasone propionate [Flonase Allergy Relief] 50 mcg/actuation spray,suspension 2 spray INTRANASAL DAILY cyclobenzaprine 10 mg tablet 10 mg PO TID gabapentin 100 mg capsule 300 mg PO TID azithromycin 250 mg tablet 250 mg PO QDAY 5 Days Qty: 6 0RF Rx Instructions: ii tabs day one and i tab days 2-5 amlodipine 5 mg tablet See Rx Instructions .ROUTE .COMPLEX Qty: 30 0RF Dose Instruction: TAKE ONE TABLET BY MOUTH ONCE A DAY Rx Instructions: TAKE ONE TABLET BY MOUTH ONCE A DAY metoprolol succinate 100 MG tablet extended release 24 hr 100 mg PO DAILY losartan 100 MG tablet 100 mg PO DAILY hydrochlorothiazide 12.5 MG tablet 12.5 mg PO DAILY meloxicam 15 MG tablet 15 mg PO DAILY metformin 750 MG tablet extended release 24 hr 750 mg PO BID dapagliflozin 10 MG tablet 10 mg PO DAILY Referrals Follow up/Referrals: Onofre Acosta MD [Primary Care Provider] - See instructions Clinical Impressions Clinical Impression: Acute lumbar radiculopathy, Greater trochanteric bursitis of right hip Instructions Patient Instructions: DI for Lumbar Radiculopathy Discharge ED Provider: Nacho Soares General Adult HPI General Chief complaint: PAIN Stated complaint: ao 07/12, right hip/leg pain Time Seen by Provider: 07/15/22 11:55 Mode of Arrival: Ambulatory Source of Information: Patient Limitations: No Limitations Description of Symptoms (Recalled from ER Triage Doc. by RN): pt to ed c/o right hip pain that radiates into the right thigh. pt states he has intermittent numbess and tingling in his leg. pt states he had an MRI yesterday at [facility]. pt states it is a dull pain in nature. History of Present Illness HPI narrative: Patient is a 51-year-old male with past medical history of hypertension, substantial lumbar stenosis who presents with concern for right hip and leg pain. He says that he was recently seen at [place] and had an MRI that showed substantial areas of lumbar stenosis. He says that his pain got worse today and seems to come into his right thigh and radiates to the front of his leg. He locates the majority of his pain right over his greater trochanter. Says that he does have some weakness of his right leg but this is previously known. Says that he is working with the surgeon to talk about potential surgical plan. Does have a pain agreement but he has been taking little bit more medication normal as his symptoms are flared up at this time. Related Data Home Medications Medication Instructions Recorded Confirmed albuterol sulfate 90 mcg/actuation 1 inh inhalation Q4-6H PRN copd 07/15/18 12/29/20 breath activated powder inhaler cyclobenzaprine 10 mg tablet 10 mg PO TID muscle spasms 03/02/19 12/29/20 fluticasone propionate 50 2 spray intranasal DAILY COPD 03/02/19 12/29/20 mcg/actuation nasal spray,suspension (Flonase Allergy Relief) omeprazole 20 mg capsule,delayed 20 mg PO DAILY GERD 03/02/19 12/29/20 release gabapentin 100 mg capsule 300 mg PO TID nerve pain 05/28/19 12/29/20 hydrocodone 5 mg-acetaminophen 325 1 tab PO Q4H PRN pain 05/28/19 12/29/20 mg tablet ([place]) dapagliflozin 10 mg tablet 10 mg PO DAILY Diabetes 08/08/20 12/29/20 hydrochlorothiazide 12.5 mg tablet 12.5 mg PO DAILY Edema 08/08/20 12/29/20 losartan 100 mg tablet 100 mg PO DAILY High blood pressure 08/08/20 12/29/20 meloxicam 15 mg tablet 15 mg PO DAILY arthirits 08/08/20 12/29/20 metformin 750 mg tablet,extended 750 mg PO BID Diabetes 08/08/20
[2022-07-15 14:26] VITALS: BP 183/121; PULSE 86; O2SAT 98
[2022-07-15 14:54] VITALS: BP 182/112; PULSE 84; RESP 16; TEMP 36.8; O2SAT 97
== END 2022-07-15 14:56 | disposition home or self-care (01) ==
LOC: UTC 11:51 → ER 11:53
PROVIDERS: Emergency Provider Student in an Organized Health Care Education/Training Program; PCP Family Medicine
DX: M70.61 Trochanteric bursitis, right hip (principal); M54.16 Radiculopathy, lumbar region
CPT/HCPCS: 96372; 99283; 99284

== ENCOUNTER 2022-07-19 01:26 | Emergency (ER) | payer BC, SELFPAY ==
[2022-07-19 01:27] VITALS: BP 185/100; PULSE 103; RESP 19; TEMP 36.8; O2SAT 98; BMI 30.7
--- NOTE | 2022-07-19 02:00 | HMH.EDGENADL ---
Discharge Plan Disposition Patient Disposition: Home, Self-Care Chief Complaint: PAIN Prescriptions Prescriptions: No Action hydrocodone-acetaminophen [[place]] 5-325 mg tablet 1 tab PO Q4H PRN (Reason: pain) albuterol sulfate 90 mcg/actuation aerosol powdr breath activated 1 inh INHALATION Q4-6H PRN (Reason: copd) omeprazole 20 mg capsule,delayed release(DR/EC) 20 mg PO DAILY fluticasone propionate [Flonase Allergy Relief] 50 mcg/actuation spray,suspension 2 spray INTRANASAL DAILY cyclobenzaprine 10 mg tablet 10 mg PO TID gabapentin 100 mg capsule 300 mg PO TID azithromycin 250 mg tablet 250 mg PO QDAY 5 Days Qty: 6 0RF Rx Instructions: ii tabs day one and i tab days 2-5 amlodipine 5 mg tablet See Rx Instructions .ROUTE .COMPLEX Qty: 30 0RF Dose Instruction: TAKE ONE TABLET BY MOUTH ONCE A DAY Rx Instructions: TAKE ONE TABLET BY MOUTH ONCE A DAY metoprolol succinate 100 MG tablet extended release 24 hr 100 mg PO DAILY losartan 100 MG tablet 100 mg PO DAILY hydrochlorothiazide 12.5 MG tablet 12.5 mg PO DAILY meloxicam 15 MG tablet 15 mg PO DAILY metformin 750 MG tablet extended release 24 hr 750 mg PO BID dapagliflozin 10 MG tablet 10 mg PO DAILY Referrals Follow up/Referrals: Onofre Acosta MD [Primary Care Provider] - See instructions Clinical Impressions Clinical Impression: Acute lumbar radiculopathy Instructions Patient Instructions: DI for Acute Pain -- Adult Discharge ED Provider: Silvia (ED)Jason General Adult HPI General Chief complaint: PAIN Stated complaint: Right hip pain; no known accident Time Seen by Provider: 07/19/22 02:00 Mode of Arrival: Family Vehicle Source of Information: Patient and Medical Record Limitations: No Limitations Description of Symptoms (Recalled from ER Triage Doc. by RN): Pt c/o R hip pain that is referred pain d/t lumbar spine issue. States he follows [facility] in [place] who prescribe his percocets. The pt states d/t the severe pain he is taking more than it is ordered and so now he is out of the pain medications. He is requesting a pain shot and muscle relaxer. Denies any new trauma or falls to cause the increase in pain. History of Present Illness HPI narrative: pt with acute exacerbation of ongoing back pain with no def cauda equina sx- pt with recent ed visit at [facility]- no fall Onset (ago): day(s) Location: back Severity: severe Associated symptoms: denies other symptoms Related Data Home Medications Medication Instructions Recorded Confirmed albuterol sulfate 90 mcg/actuation 1 inh inhalation Q4-6H PRN copd 07/15/18 12/29/20 breath activated powder inhaler cyclobenzaprine 10 mg tablet 10 mg PO TID muscle spasms 03/02/19 12/29/20 fluticasone propionate 50 2 spray intranasal DAILY COPD 03/02/19 12/29/20 mcg/actuation nasal spray,suspension (Flonase Allergy Relief) omeprazole 20 mg capsule,delayed 20 mg PO DAILY GERD 03/02/19 12/29/20 release gabapentin 100 mg capsule 300 mg PO TID nerve pain 05/28/19 12/29/20 hydrocodone 5 mg-acetaminophen 325 1 tab PO Q4H PRN pain 05/28/19 12/29/20 mg tablet ([place]) dapagliflozin 10 mg tablet 10 mg PO DAILY Diabetes 08/08/20 12/29/20 hydrochlorothiazide 12.5 mg tablet 12.5 mg PO DAILY Edema 08/08/20 12/29/20 losartan 100 mg tablet 100 mg PO DAILY High blood pressure 08/08/20 12/29/20 meloxicam 15 mg tablet 15 mg PO DAILY arthirits 08/08/20 12/29/20 metformin 750 mg tablet,extended 750 mg PO BID Diabetes 08/08/20 12/29/20 release 24 hr metoprolol succinate 100 mg 100 mg PO DAILY High blood pressure 08/08/20 12/29/20 tablet,extended release 24 hr Previous Rx's Medication Instructions Recorded amlodipine 5 mg tablet See Rx Instructions .Route 12/20/20 .COMPLEX #30 tabs azithromycin 250 mg tablet 250 mg PO QDAY resp infection 5 12/29/20 days #6 tabs Allerg
--- NOTE | 2022-07-19 02:14 | PC.NURSE ---
Upon d/c pt states I don't want those shots, I am just going to go onto [facility] where my surgeon is . Educated that the medicines are drawn up and have ready to give, he still maintains, They wanted to keep me before, I'm just heading up there to she my doctor . Dr. Vega notified of these events.
[2022-07-19 02:16] VITALS: BP 170/98; PULSE 98; RESP 16; TEMP 36.6; O2SAT 97
--- NOTE | 2022-07-19 02:26 | HMH.EDGENADL ---
Discharge Plan Disposition Patient Disposition: Home, Self-Care Condition: Good Prescriptions Prescriptions: No Action hydrocodone-acetaminophen [[place]] 5-325 mg tablet 1 tab PO Q4H PRN (Reason: pain) albuterol sulfate 90 mcg/actuation aerosol powdr breath activated 1 inh INHALATION Q4-6H PRN (Reason: copd) omeprazole 20 mg capsule,delayed release(DR/EC) 20 mg PO DAILY fluticasone propionate [Flonase Allergy Relief] 50 mcg/actuation spray,suspension 2 spray INTRANASAL DAILY cyclobenzaprine 10 mg tablet 10 mg PO TID gabapentin 100 mg capsule 300 mg PO TID azithromycin 250 mg tablet 250 mg PO QDAY 5 Days Qty: 6 0RF Rx Instructions: ii tabs day one and i tab days 2-5 amlodipine 5 mg tablet See Rx Instructions .ROUTE .COMPLEX Qty: 30 0RF Dose Instruction: TAKE ONE TABLET BY MOUTH ONCE A DAY Rx Instructions: TAKE ONE TABLET BY MOUTH ONCE A DAY metoprolol succinate 100 MG tablet extended release 24 hr 100 mg PO DAILY losartan 100 MG tablet 100 mg PO DAILY hydrochlorothiazide 12.5 MG tablet 12.5 mg PO DAILY meloxicam 15 MG tablet 15 mg PO DAILY metformin 750 MG tablet extended release 24 hr 750 mg PO BID dapagliflozin 10 MG tablet 10 mg PO DAILY Referrals Follow up/Referrals: Onofre Acosta MD [Primary Care Provider] - See instructions Clinical Impressions Clinical Impression: Acute lumbar radiculopathy Instructions Patient Instructions: DI for Acute Pain -- Adult Discharge ED Provider: Silvia (ED)Jason General Adult HPI General Chief complaint: PAIN Stated complaint: Right hip pain; no known accident Time Seen by Provider: 07/19/22 02:00 Mode of Arrival: Family Vehicle Source of Information: Patient and Medical Record Limitations: No Limitations Description of Symptoms (Recalled from ER Triage Doc. by RN): Pt c/o R hip pain that is referred pain d/t lumbar spine issue. States he follows [facility] in [place] who prescribe his percocets. The pt states d/t the severe pain he is taking more than it is ordered and so now he is out of the pain medications. He is requesting a pain shot and muscle relaxer. Denies any new trauma or falls to cause the increase in pain. History of Present Illness HPI narrative: pt with ongoing back pain which has increased - no fever or trauma Onset (ago): day(s) Location: back Severity: severe Associated symptoms: denies other symptoms Related Data Home Medications Medication Instructions Recorded Confirmed albuterol sulfate 90 mcg/actuation 1 inh inhalation Q4-6H PRN copd 07/15/18 12/29/20 breath activated powder inhaler cyclobenzaprine 10 mg tablet 10 mg PO TID muscle spasms 03/02/19 12/29/20 fluticasone propionate 50 2 spray intranasal DAILY COPD 03/02/19 12/29/20 mcg/actuation nasal spray,suspension (Flonase Allergy Relief) omeprazole 20 mg capsule,delayed 20 mg PO DAILY GERD 03/02/19 12/29/20 release gabapentin 100 mg capsule 300 mg PO TID nerve pain 05/28/19 12/29/20 hydrocodone 5 mg-acetaminophen 325 1 tab PO Q4H PRN pain 05/28/19 12/29/20 mg tablet ([place]) dapagliflozin 10 mg tablet 10 mg PO DAILY Diabetes 08/08/20 12/29/20 hydrochlorothiazide 12.5 mg tablet 12.5 mg PO DAILY Edema 08/08/20 12/29/20 losartan 100 mg tablet 100 mg PO DAILY High blood pressure 08/08/20 12/29/20 meloxicam 15 mg tablet 15 mg PO DAILY arthirits 08/08/20 12/29/20 metformin 750 mg tablet,extended 750 mg PO BID Diabetes 08/08/20 12/29/20 release 24 hr metoprolol succinate 100 mg 100 mg PO DAILY High blood pressure 08/08/20 12/29/20 tablet,extended release 24 hr Previous Rx's Medication Instructions Recorded amlodipine 5 mg tablet See Rx Instructions .Route 12/20/20 .COMPLEX #30 tabs azithromycin 250 mg tablet 250 mg PO QDAY resp infection 5 12/29/20 days #6 tabs Allergies Allergy/AdvReac Type Severity Reaction Status Date / Time
== END 2022-07-19 02:10 | disposition home or self-care (01) ==
PROVIDERS: Emergency Provider Emergency Medicine; PCP Family Medicine
DX: M54.16 Radiculopathy, lumbar region (principal); M25.551 Pain in right hip
CPT/HCPCS: 96372; 99284

== ENCOUNTER → 2023-02-19 06:25 | Outpatient (CLI) | payer BC, SELFPAY ==
--- NOTE | 2023-02-19 06:28 | CT_ITS ---
FINAL REPORT TECHNIQUE: Thin section axial images were obtained from the lung apices through the upper abdomen without contrast. This study was performed with techniques to keep radiation doses as low as reasonably achievable (ALARA). Individualized dose reduction techniques using automated exposure control or adjustment of mA and/or kV according to the patient's size were employed. CLINICAL HISTORY: Lung nodule 6-month follow-up COMPARISON: No prior available for comparison. FINDINGS: There is no axillary lymphadenopathy. There are large calcified subcarinal and left hilar lymph nodes. Otherwise there is no lymphadenopathy. No pleural or pericardial effusion. The lungs are clear. There is no suspicious nodule or consolidation. Limited, unenhanced evaluation of the upper abdomen demonstrates a right renal lesion which is favored to represent a cyst. There is no acute osseous abnormality. IMPRESSION: No suspicious pulmonary nodules. No acute intrathoracic abnormality. Large calcified lymph nodes. Reviewed, Interpreted and Dictated by Candelaria Raya MD Transcribed by Nahomy Colunga Authenticated and [facility]
[2023-02-19 07:20] VITALS: PULSE 74; PULSE 77
== END ==
PROVIDERS: PCP Nurse Practitioner Family; Visit Provider Internal Medicine Pulmonary Disease
DX: R91.8 Other nonspecific abnormal finding of lung field (principal)
CPT/HCPCS: 71250; 94060; 94640; 94727; 94729

== ENCOUNTER 2023-02-21 13:30 | Outpatient (RCR) | payer BC, SELFPAY | END 2023-02-21 15:00 | disposition home or self-care (01) | LOC: PT 13:30 | PROVIDERS: PCP Family Medicine; Visit Provider Neurological Surgery | DX: M54.50 Low back pain, unspecified (principal); M43.26 Fusion of spine, lumbar region | CPT/HCPCS: 20561; 97010; 97012; 97014; 97110; 97112; 97140; 97163; 97164; 97530; G0283 ==

== ENCOUNTER → 2023-02-21 20:12 | Outpatient (CLI) | payer BC, SELFPAY | PROVIDERS: PCP Nurse Practitioner Family; Visit Provider Nurse Practitioner Family | DX: G47.30 Sleep apnea, unspecified (principal); F11.90 Opioid use, unspecified, uncomplicated; G47.9 Sleep disorder, unspecified; R40.0 Somnolence; R06.83 Snoring; I10 Essential (primary) hypertension; E66.9 Obesity, unspecified; Z68.31 Body mass index [BMI] 31.0-31.9, adult | CPT/HCPCS: 95810 ==

== ENCOUNTER 2023-05-12 10:28 | Emergency (ER) | payer BC, SELFPAY ==
[2023-05-12] VITALS (7 sets, daily range): BP systolic 122–146; BP diastolic 64–100; PULSE 64–99; RESP 18–20; TEMP 36.9; O2SAT 94–100; BMI 31.2
--- NOTE | 2023-05-12 11:02 | CT_ITS ---
PROCEDURE INFORMATION: Exam: CT Abdomen And Pelvis With Contrast Exam date and time: 05/12/2023 12:05 PM Age: 52 years old Clinical indication: Abdominal pain; Generalized; Additional info: Abd spasms, HX nodules/cysts TECHNIQUE: Imaging protocol: Computed tomography of the abdomen and pelvis with contrast. Radiation optimization: All CT scans at this facility use at least one of these dose optimization techniques: automated exposure control; mA and/or kV adjustment per patient size (includes targeted exams where dose is matched to clinical indication); or iterative reconstruction. Contrast material: ISOVUE; Contrast volume: 75 ml; Contrast route: IV; COMPARISON: ABDPELW/O CT ABD PELVIS W/O CONTRAST 07/18/2016 4:32 PM FINDINGS: Lungs: There is a 3 mm granuloma in the lingula. There is bibasilar atelectasis. Liver: There is fatty infiltration of the liver. Gallbladder and bile ducts: No calcified stones. No ductal dilation. Pancreas: Normal. No ductal dilation. Spleen: Normal. No splenomegaly. Adrenal glands: Normal. No mass. Kidneys and ureters: There are bilateral renal cysts with the largest on the right in the upper zone measuring up to 6.0 cm. Stomach and bowel: There are scattered diverticula of the left colon. Appendix: No evidence of appendicitis. Intraperitoneal space: No free air. No significant fluid collection. Vasculature: No abdominal aortic aneurysm. Lymph nodes: There is partial visualization of large left hilar and subcarinal calcified lymph nodes. Urinary bladder: Unremarkable as visualized. Reproductive: Unremarkable as visualized. Bones/joints: There are postop changes of the lumbar spine better assessed on the dedicated exam. Soft tissues: Unremarkable. IMPRESSION: 1. Diverticulosis. 2. There is no acute intra-abdominal inflammatory change. 3. Hepatic steatosis. COMMENTS: Consistent with the [employer]'s Incidental Findings Committee white paper (J Am Sherif Radiol 2018): Any incidental renal lesion less than 1 cm or classified as too small to characterize, or any incidental cystic renal lesion characterized as simple-appearing, is likely benign. No follow-up imaging is recommended for these lesions per consensus recommendations based on imaging criteria.
--- NOTE | 2023-05-12 11:02 | CT_ITS ---
PROCEDURE INFORMATION: Exam: CT Thoracic Spine Without Contrast Exam date and time: 05/12/2023 11:56 AM Age: 52 years old Clinical indication: Pain in thoracic spine; Additional info: Pain HX surgeries TECHNIQUE: Imaging protocol: Computed tomography of the thoracic spine without contrast. Radiation optimization: All CT scans at this facility use at least one of these dose optimization techniques: automated exposure control; mA and/or kV adjustment per patient size (includes targeted exams where dose is matched to clinical indication); or iterative reconstruction. COMPARISON: CR TSP THORACIC SPINE-3V SWIMMERS 07/16/2016 12:29 PM FINDINGS: Bones/joints: Vertebral body heights and alignment are within normal limits. There is degenerative spondylotic change with disc osteophyte and facet arthropathy at multiple thoracic levels causing mild canal and moderate to severe neural foraminal narrowing. Cervical fixation hardware is partially imaged. Soft tissues: Unremarkable. Lymph nodes: Incidental note is made of calcified mediastinal and hilar lymphadenopathy. A 4.9 x 5.2 cm cystic lesion is noted at the upper pole of the right kidney. There is an indeterminate isodense lesion arising from the posterior left midportion measuring 29 x 20 mm. Suggest MRI of the abdomen with and without intravenous contrast to further assess. IMPRESSION: No evidence for acute thoracic fracture. Spondylotic change. Indeterminate left renal lesion for which MRI of the abdomen with and without intravenous contrast is recommended to further assess.
--- NOTE | 2023-05-12 11:02 | CT_ITS ---
PROCEDURE INFORMATION: Exam: CT Cervical Spine Without Contrast Exam date and time: 05/12/2023 11:54 AM Age: 52 years old Clinical indication: Neck pain; Additional info: Pain HX surgeries TECHNIQUE: Imaging protocol: Computed tomography of the cervical spine without contrast. Radiation optimization: All CT scans at this facility use at least one of these dose optimization techniques: automated exposure control; mA and/or kV adjustment per patient size (includes targeted exams where dose is matched to clinical indication); or iterative reconstruction. COMPARISON: MR CERVICAL SPINE WO CON 08/01/2021 9:36 AM FINDINGS: Bones/joints: There is no evidence for acute cervical fracture or subluxation. Straightening of the cervical lordosis likely relates to anterior cerebral diskectomy and fusion with an anterior plate and screws and interbody spacer devices spanning from C4-C6. Cervical spondylosis is noted with disc ridging and especially uncovertebral spurring/facet arthropathy. Lungs: Lung apices are normal. Soft tissues: Unremarkable. IMPRESSION: Degenerative and postsurgical changes in the cervical spine.
--- NOTE | 2023-05-12 11:02 | CT_ITS ---
PROCEDURE INFORMATION: Exam: CT Lumbar Spine Without Contrast Exam date and time: 05/12/2023 12:00 PM Age: 52 years old Clinical indication: Low back pain; Prior surgery; Surgery date: 6+ months; Surgery type: L spine; Additional info: Pain HX surgeries TECHNIQUE: Imaging protocol: Computed tomography of the lumbar spine without contrast. Radiation optimization: All CT scans at this facility use at least one of these dose optimization techniques: automated exposure control; mA and/or kV adjustment per patient size (includes targeted exams where dose is matched to clinical indication); or iterative reconstruction. COMPARISON: MR LUMBAR SPINE WO CON 08/18/2021 2:50 PM FINDINGS: Bones/joints: Bilateral spondylolysis of L3 is present. There is 5 mm of anterolisthesis at L3-L4. There is 3 mm of anterolisthesis at L4-L5. There are postop changes from anterior and posterior fusion at L3-L4 and L4-L5. The left L5 screw crosses the L4-L5 facet joint and extends into the superior endplate of L5. There is bony union posteriorly on the right at L4-L5. Bony union is not demonstrated L3-L4 posteriorly. Anterior bony union is not demonstrated as well. T12-L1: There is no disc bulge or herniation L1-L2: There is a diffuse bulge which flattens the sac. There are mild facet joint degenerative changes. There is stable moderate spinal canal stenosis. There is bilateral neural foraminal narrowing. L2-L3: No significant disc bulge or herniation. There are mild facet joint degenerative changes. No spinal canal stenosis. There is bilateral neural foraminal narrowing. L3-L4: There are postop changes, somewhat limited due to streak artifact. The central canal appears to be decompressed. L4-L5: There are postop changes, somewhat limited due to streak artifact. The central canal appears to be decompressed. L5-S1: There is a large central leftward calcified disc herniation which appears stable. It does impinge the left S1 root. There are facet joint degenerative changes resulting in spinal canal stenosis. There is bilateral neural foraminal narrowing. Soft tissues: Unremarkable. IMPRESSION: 1. Status post anterior and posterior fusion L3 through L5 as described. Bony union is not demonstrated L3-L4 where there is bilateral spondylolysis and anterolisthesis. 2. Degenerative changes with central stenosis at L1-L2. 3. Stable calcified central leftward herniation L5-S1 with impingement of the left S1 root.
--- NOTE | 2023-05-12 11:06 | HMH.EDGENADL ---
Discharge Plan Disposition Patient Disposition: Home, Self-Care Condition: Fair Prescriptions Prescriptions: No Action omeprazole 20 mg capsule,delayed release(DR/EC) 20 mg PO DAILY cholecalciferol (vitamin D3) 125 mcg (5,000 unit) capsule 125 mcg PO DAILY irbesartan 150 mg tablet 150 mg PO DAILY loratadine 10 mg tablet 10 mg PO DAILY hydrochlorothiazide 12.5 mg capsule 12.5 mg PO DAILY rosuvastatin 20 mg tablet 20 mg PO DAILY tamsulosin 0.4 mg capsule 0.4 mg PO DAILY tadalafil 5 mg tablet 5 mg PO DAILY gabapentin 600 mg tablet 600 mg PO QID Rx Instructions: 600 mg orally QID; oxycodone-acetaminophen [Percocet] 7.5-325 mg tablet 1 tab PO Q6H PRN (Reason: Pain) bethanechol chloride 10 mg tablet 10 mg PO DAILY Referrals Follow up/Referrals: Rachael Gregg APRN [Primary Care Provider] - See instructions Activity Restrictions/Add. Instructions Additional Instructions/Restrictions: You were evaluated in the ER today. You are appropriate for discharge. You have severe degenerative changes which were previously known, but there are no significant new abnormalities in your back or abdomen. You do require follow-up to continue monitoring your renal cysts. You do have a granuloma in the left lung. This also requires outpatient follow-up. Please make an appointment with your spine team as soon as possible for reevaluation. They will likely want to schedule MRI. Also make an appointment with your primary care physician in the next 2 to 3 days as they may be able to get you scheduled for an MRI. Return to the ER with any new, worsening, or otherwise concerning symptoms. Clinical Impressions Clinical Impression: Back pain, Neck pain Instructions Patient Instructions: DI for Low Back Pain Discharge ED Provider: Vipul Peraza Adult [facility] General Chief complaint: Back Pain/Injury Stated complaint: Back pain with numbness Time Seen by Provider: 05/12/23 10:46 Mode of Arrival: Ambulatory Source of Information: Patient Limitations: Physical Limitations Description of Symptoms (Recalled from ER Triage Doc. by RN): Pt. presents with complaints of lower back pain with spasms around flanks. He also complains of neck pain, worsening with movement. He states he is also experiancing numbness into his groin, with periods of weakness in his legs resulting in frequent falls. He had back surgery in July of 2022 and has been having back pain since. History of Present Illness HPI narrative: This 52-year-old male with a history of multiple prior back surgeries including cervical laminectomy, lumbar fusion presents to the ER at the recommendation of his spine doctor for further evaluation. Patient states he has had multiple falls over the last 4 months and has been having progressive weakness in both legs. He states he originally had surgery on his low back due to symptoms in the right leg, he is now having similar symptoms in the left leg. Patient also states he is having back spasms that radiate to the abdomen and describes decreased sensation in his privates . Patient states he is slow to urinate but does not have any incontinence. He states this has been going on since the lumbar surgery in early 2022. Patient also states he has been having right-sided neck pain for the last few weeks radiating into the right arm. He states he is supposed to be seeing for further evaluation of this and his ulnar nerve. 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 but is worried he is not going to be able to perform the job because he has frequent falls, episodes of weakness in the legs, spasms, numbness into his private parts, among the other complaints. Patient ambulated into the ER independently. He states he has not taken his pain medications today. Related Data Home Medications Medication Instructions Recorded Confirmed gabapentin 600 mg tablet 600 mg PO QID 01/30/23 05/12/23 hydrochlorothiazide 12.5 mg capsule 12.5 mg PO DAILY 01/30/23 05/12/23 irbesartan 150 mg tablet 150 mg PO DAILY 01/30/23 05/12/23 loratadine 10 mg tablet 10 mg PO DAILY 01/30/23 05/12/23 oxycodone-acetaminophen 7.5 mg-325 1 tab PO Q6H PRN Pain 01/30/23 05/12/23 mg tablet (Percocet) rosuvastatin 20 mg tablet 20 mg PO DAILY 01/30/23 05/12/23 tadalafil 5 mg tablet 5 mg PO DAILY 01/30/23 05/12/23 tamsulosin 0.4 mg capsule 0.4 mg PO DAILY 01/30/23 05/12/23 cholecalciferol (vitamin D3) 125 125 mcg PO DAILY 03/04/23 05/12/23 mcg (5,000 unit) capsule omeprazole 20 mg capsule,delayed 20 mg PO DAILY 03/04/23 05/12/23 release bethanechol chloride 10 mg tablet 10 mg PO DAILY 03/20/23 05/12/23 Allergies Allergy/AdvReac Type Severity Reaction Status Date / Time Iodinated Contrast Media Allergy Unknown Hives Verified 05/12/23 10:42 [Iodinated Contrast Media - Oral and] steroidal AdvReac Severe Uncoded 03/04/23 16:12 [facility] Disclaimer: The information contained in this section may have been updated after the patient was seen, as this information can be updated by other users. Medical History Anxiety Asthma Daytime somnolence Diabetes Dyspnea Ex-smoker History of 2019 novel coronavirus disease (COVID-19) HTN (hypertension) Left arm numbness Lung nodule seen on imaging study MONE (obstructive sleep apnea) Newly diagnosed mild MONE, severe during REM Restless sleeper Snoring Stroke Surgical History History of carpal tunnel surgery History of lumbar surgery History of surgery on lower extremity History of surgery on upper extremity Family History Other Hypertension MONE (obstructive sleep apnea) Social History Smoking Status: Current some day smoker tobacco type: cigarettes packs per day: 1 alcohol intake: current substance use type: denies use current occupational status: employed Travel in the last 8 weeks: None household members: none housing: house current occupation: 3M caffeine: Yes ROS Obtained: Yes All systems reviewed & no additional complaints except as documented Constitutional Constitutional: Denies chills, Denies fever(s), Denies headache(s) and Reports weakness Eyes Eyes: Denies change in vision ENT Ears, Nose, Mouth, and Throat: Denies dizziness, Denies headache(s), Denies nasal congestion, Reports neck pain and Denies sore throat Cardiovascular Cardiovascular: Denies chest pain, Denies dyspnea and Denies leg edema Respiratory Respiratory: Denies cough and Denies dyspnea Gastrointestinal Gastrointestingal: Reports abdominal pain; Denies constipation, diarrhea, nausea or vomiting Genitourinary Male Genitourinary: Reports difficulty urinating (slow urination compared to pre-surgery) Comments: genital numbness Musculoskeletal Musculoskeletal: Denies arthralgias, Reports back pain, Reports myalgias, Reports neck pain, Reports numbness and Denies tingling Integumentary/Breasts Skin/Breast: Denies change in pigmentation Neurologic Neurologic: Denies dizziness, Denies headache(s), Reports numbness, Denies tingling and Reports weakness Physical Exam General General appearance: alert and in no apparent distress Head Head exam: atraumatic and normocephalic Eye Eye exam: Present PERRL and EOMI ENT ENT exam: Present mucous membranes moist Neck Neck exam: Present normal inspection, full ROM, trachea midline and tenderness (right lateral neck without mass, swelling, or signs of injury, laminectomy scar present); Absent meningismus or lymphadenopathy Chest Chest inspection: Present symmetric chest wall rise Respiratory Respiratory exam: Absent respiratory distress or stridor Cardiovascular Cardiovascular exam: Present regular rate and normal rhythm Abdominal Exam Abdominal exam: Present soft; Absent distention, tenderness, guarding or rebound Extremities Exam Extremities exam: Present full ROM Back Exam Back exam: Present tenderness (midline upper lumbar) and paraspinal tenderness (upper lumbar); Absent CVA tenderness (R) or CVA tenderness (L) Comment: prior surgical scars present, well-healed Neurological Exam Neurological exam: Present alert, oriented X3, CN II-XII intact, motor sensory deficit (decreased sensation RUE, present for over 3 years. decreased sensation in BLE lateral aspects, no saddle anesthesia, strength 5/5 in BLE on exam. Pt reports decreased genital sensation. 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 ) Psychiatric Psychiatric exam: Present normal affect and normal mood Skin Skin exam: Present warm and dry Medical Decision Making Bobby Inquiry Pt receiving controlled substance: No Vital Signs: 05/12/23 10:42 05/12/23 10:40 05/12/23 11:00 Temperature 98.4 F Temperature Source Oral Pulse Rate 94 H 87 Pulse Rate [Right Brachial] 99 H Respiratory Rate 18 18 18 Blood Pressure 143/95 H 146/100 H Blood Pressure [Right Arm] 141/100 H Blood Pressure Mean 111 117 Blood Pressure Mean [Right Arm] 113 Blood Pressure Source Blood Pressure Source [Right Arm] Automatic Cuff Blood Pressure Position [Right Arm] Sitting 02 Sat by Pulse Oximetry 100 98 98 Oxygen Delivery Method Room Air 05/12/23 12:20 05/12/23 12:40 05/12/23 13:00 Temperature Temperature Source Pulse Rate 71 64 65 Pulse Rate [Right Brachial] Respiratory Rate 20 20 20 Blood Pressure 136/90 132/85 128/84 Blood Pressure [Right Arm] Blood Pressure Mean 113 100 92 Blood Pressure Mean [Right Arm] Blood Pressure Source Blood Pressure Source [Right Arm] Blood Pressure Position [Right Arm] 02 Sat by Pulse Oximetry 94 L 97 96 Oxygen Delivery Method 05/12/23 13:24 Temperature 98.4 F Temperature Source Oral Pulse Rate 76 Pulse Rate [Right Brachial] Respiratory Rate 18 Blood Pressure 122/64 Blood Pressure [Right Arm] Blood Pressure Mean Blood Pressure Mean [Right Arm] Blood Pressure Source Automatic Cuff Blood Pressure Source [Right Arm] Blood Pressure Position [Right Arm] 02 Sat by Pulse Oximetry Oxygen Delivery Method Room Air Lab Data Lab Results 05/12/23 11:10: WBC 6.7, RBC 5.40, Hgb 16.2, Hct 46.5, MCV 86.1, MCH 29.9, MCHC 34.8, RDW 13.1, Plt Count 172, MPV 8.4, Neut % (Auto) 55.6, Lymph % (Auto) 35.6, [place] % (Auto) 6.2, Eos % (Auto) 2.0, Baso % (Auto) 0.6, Neut # (Auto) 3.7, Lymph # (Auto) 2.4, [place] # (Auto) 0.4, Eos # (Auto) 0.1, Baso # (Auto) 0.0, Sodium 138, Potassium 3.7, Chloride 104, Carbon Dioxide 26, Anion Gap 11.7, BUN 15, Creatinine 1.10, Estimated Creat Clear 112, Estimated GFR 70, Est GFR ( Amer) 85, Glucose 145 H, Calcium 9.2, Total Bilirubin 0.7, AST 46, ALT 39, Alkaline Phosphatase 103, Total Protein 7.4, Albumin 4.4, Globulin 3.0, Albumin/Globulin Ratio 1.5 05/12/23 11:24: Urine Color Yellow, Urine Appearance Clear, Urine pH 6.0, Ur Specific [place] >= 1.030, Urine Protein 1+, Urine Glucose (UA) Negative, Urine Ketones Negative, Urine Blood Negative, Urine Nitrate Negative, Urine Bilirubin Negative, Urine Urobilinogen 1.0, Ur Leukocyte Esterase Negative, Urine RBC None, Urine WBC 3-5, Ur Squamous Epith Cells Occasional, Urine Bacteria Trace, Urine Sperm 2+ 05/12/23 11:10 05/12/23 11:10 Orders (Tests/Meds): ED MEDICATIONS Discontinued Medications Generic Name Dose Route Start Last Admin Trade Name Martin PRN Reason Stop Dose Admin Diphenhydramine HCl 50 mg 05/12/23 11:03 05/12/23 11:18 Diphenhydramine 50mg/Ml Vial IV 05/12/23 11:04 50 mg ONCE ONE Administration Gabapentin 400 mg 05/12/23 11:03 05/12/23 11:18 Gabapentin 100mg Capsule PO 05/12/23 11:04 400 mg ONCE ONE Administration Gabapentin 200 mg 05/12/23 11:03 05/12/23 11:18 Gabapentin 100mg Capsule PO 05/12/23 11:04 200 mg ONCE ONE Administration Iopamidol 75 ml 05/12/23 12:14 05/12/23 12:15 Iopamidol-370 (76%);100ml Bottle IV 05/12/23 12:15 75 ml ONCE ONE Administration Lidocaine 1 each 05/12/23 11:03 05/12/23 11:21 Lidocaine 5% Transdermal Patch TP 05/12/23 11:04 1 each ONCE ONE Administration Methocarbamol 500 mg 05/12/23 11:04 05/12/23 11:18 Methocarbamol 500mg Tablet PO 05/12/23 11:05 500 mg ONCE ONE Administration Methylprednisolone Sodium Succinate 125 mg 05/12/23 11:03 05/12/23 11:18 Methylprednisolone Sod Succ 125mg Vial IV 05/12/23 11:04 125 mg ONCE ONE Administration Oxycodone/Acetaminophen 1 each 05/12/23 11:03 05/12/23 11:18 Oxycodone 7.5mg W/Apap 325mg Tablet PO 05/12/23 11:04 1 each ONCE ONE Administration Sodium Chloride 10 ml 05/12/23 12:14 05/12/23 12:15 Sodium Chloride 0.9% 10ml Syr (Rad Only) IV 05/12/23 12:15 10 ml ONCE ONE Administration ORDERS Category Date Time Status CT abdomen pelvis w con Stat Cat Scan 05/12/23 11:[address] cervical spine wo con Stat Cat Scan 05/12/23 11:[address] lumbar spine wo con Stat Cat Scan 05/12/23 11:[address] thoracic spine wo con Stat Cat Scan 05/12/23 11:02 Completed CBC w/Auto Diff [Complete Blood Count Auto Diff] Stat Lab 05/12/23 11:10 Completed CMP [Comprehensive Metabolic Panel] Stat Lab 05/12/23 11:10 Completed Urinalysis and Microscopic Stat Lab 05/12/23 11:24 Completed Medical Decision Narrative: In summary, this 52year old male presents to the emergency department today with back pain, neck pain, recent falls, abdominal spasms, genital numbness. On initial evaluation patient is hemodynamically stable, afebrile, GCS 15, he has some neurodeficits as described in the physical exam however he does not have any saddle anesthesia though he does describe genital numbness. Many patient symptoms have been ongoing for years but seem to be gradually progressing. Differential diagnosis includes but is not limited to fracture, hardware failure, malalignment, cauda equina. I have much lower suspicion for cauda equina at this time as patient does not have paralysis, no bowel or bladder incontinence, no true saddle anesthesia, however the genital numbness and recent falls are concerning as well as his slow urination that he describes. I also considered kidney stones with the back spasms causing abdominal pain, pyelonephritis, UTI. based on these concerns, I ordered CT imaging of the spine to evaluate for injury, basic labs, contrast allergy premedication, CT of the abdomen, urinalysis, and postvoid residual bladder scan. Patient received home medications including Percocet, gabapentin, also added methocarbamol and lidocaine patches for multimodal pain control for treatment. Labs personally reviewed demonstrate CBC with no leukocytosis or anemia, CMP with no actionable abnormalities, no findings of electrolyte abnormality, kidney dysfunction, or liver dysfunction, UA negative for signs of infection, no blood. Post void residual volume after urinating was 23mL, extremely reassuring against urinary retention and cauda equina. He does not require emergent MRI or surgical intervention at this time. CT abdomen pelvis personally interpreted does not demonstrate any acute intra-abdominal pathology such as kidney stone, bowel obstruction, however patient does have bilateral renal cysts which are previously known. See radiology read for full interpretation. CT imaging of the spine was reviewed and demonstrates findings similar to prior including postsurgical changes. Patient also has findings of S1 nerve root compression which is consistent with patient's genital decreased sensation. Overall patient does not have any injuries that would be causing cauda equina, and clinically his labs, postvoid residual, and physical exam are also reassuring against this. See radiology reads for full interpretations of spinal imaging. On reassessment patient remains stable. His pain is improved and he is able to move more freely and comfortably. He is appropriate for discharge and comfortable with this plan. He is going to call his spine team and make an appointment for follow-up. I instructed him to continue taking his home medications as previously prescribed. I offered a prescription for methocarbamol and lidocaine patches but he declined these. Patient was given instructions on symptomatic management, follow up instructions, and return precautions for the emergency department. Patient indicated understanding and was discharged in stable condition. Critical Care Critical Care Time Critical Care Time: No
[2023-05-12] MEDS: METHYLPREDNISOLONE SOD SUCC 125MG VIAL 125 MG IV (11:18)
[2023-05-12] MEDS: OXYCODONE 7.5MG W/APAP 325MG TABLET 1 EACH PO (11:18)
[2023-05-12] MEDS: GABAPENTIN 100MG CAPSULE 400 MG PO (11:18)
[2023-05-12] MEDS: METHOCARBAMOL 500MG TABLET 500 MG PO (11:18)
[2023-05-12] MEDS: GABAPENTIN 100MG CAPSULE 200 MG PO (11:18)
[2023-05-12] MEDS: diphenhydrAMINE 50MG/ML VIAL 50 MG IV (11:18)
[2023-05-12] MEDS: LIDOCAINE 5% TRANSDERMAL PATCH 1 EACH TP (11:21)
[2023-05-12 11:27] LABS: Microscopic, Urine URINE MICROSCOPIC (MICROSCOPIC)
--- NOTE | 2023-05-12 11:27 | PC.NURSE ---
23MLS POST VOID PER BLADDER SCAN
[2023-05-12 11:29] LABS: Chloride 104 mmol/L (98-107); Sodium 138 mmol/L (136-145)
[2023-05-12 11:30] LABS: Potassium 3.7 mmoL/L (3.5-5.1)
[2023-05-12 11:32] LABS: Alanine Aminotransferase 39 U/L (12-78); Albumin Level 4.4 g/dl (3.5-5.0); Albumin/Globulin Ratio 1.5 (1.1-1.8); Alkaline Phosphatase 103 U/L (38-126); Anion Gap 11.7 mEq/L (5-15); Aspartate Amino Transferase 46 U/L (17-59); Bilirubin,Total 0.7 mg/dl (0.2-1.3); Blood Urea Nitrogen 15 mg/dl (9-20); Carbon Dioxide 26 mmol/L (22.0-30.0); Creatinine Clearance Estimated 112 mL/min (50-200); Estimated Glomerular Filt Rate 70 ml/min (>60); GFR (African American) 85 ML/MIN (>60); Total Protein,Serum 7.4 g/dl (6.3-8.2)
[2023-05-12 11:33] LABS: Basophils % 0.6 % (0.1-2.0); Calcium 9.2 mg/dl (8.4-10.2); Eosinophils # 0.1 K/mm3 (0.0-0.4); Glucose 145 mg/dl (74-100); Hematocrit 46.5 % (42.0-52.0); Hemoglobin 16.2 g/dL (14.1-18.0); Lymphocytes # 2.4 K/mm3 (0.7-4.5); Lymphocytes % 35.6 % (10-50); Mean Corpuscular HGB Conc 34.8 g/dL (31.8-35.4); Mean Corpuscular Hemoglobin 29.9 pg (27.0-31.2); Mean Corpuscular Volume 86.1 fl (80-94); Mean Platelet Volume 8.4 fl (7.4-10.4); Monocytes # 0.4 K/mm3 (0.1-1.0); Monocytes % 6.2 % (1.7-9.3); Neutrophils # 3.7 K/mm3 (1.8-7.8); Neutrophils % 55.6 % (37.0-80.0); Platelet Count 172 K/mm3 (142-424); Red Cell Distribution Width 13.1 % (11.5-17.5); White Blood Count 6.7 K/mm3 (4.8-10.8)
[2023-05-12 11:41] LABS: Appearance,Urine CLEAR (Clear); Blood, Urine Negative (Negative); Color,Urine YELLOW (Yellow); Glucose,Urine (UA) Negative (Negative); Ketones,Urine Negative (Negative); Leukocyte Esterase,Urine Negative (Negative); Nitrate,Urine Negative (Negative); Protein,Urine 1+ (Negative); Specific Gravity, Urine >= 1.030 (1.005-1.030)
[2023-05-12 11:44] LABS: Bilirubin,Urine Negative (Negative)
[2023-05-12 11:52] LABS: Bacteria,Urine Trace /lpf; Sperm,Urine 2+ /lpf; Squamous Epithelial Cell,Urine Occasional #/hpf (0-5)
[2023-05-12] MEDS: IOPAMIDOL-370 (76%);100ML BOTTLE 75 ML IV (12:15)
[2023-05-12] MEDS: SODIUM CHLORIDE 0.9% 10ML SYR (RAD ONLY) 10 ML IV (12:15)
--- NOTE | 2023-05-12 13:22 | PC.NURSE ---
DR KENT AT BEDSIDE TO REEVALUATE PT
== END 2023-05-12 13:29 | disposition home or self-care (01) ==
PROVIDERS: Emergency Provider Emergency Medicine; PCP Nurse Practitioner Family
DX: M54.2 Cervicalgia (principal); M54.50 Low back pain, unspecified; R53.1 Weakness; M79.601 Pain in right arm; R20.0 Anesthesia of skin; R29.6 Repeated falls; J45.909 Unspecified asthma, uncomplicated; E11.9 Type 2 diabetes mellitus without complications; I10 Essential (primary) hypertension; G47.33 Obstructive sleep apnea (adult) (pediatric); Z86.73 Personal history of transient ischemic attack (TIA), and cerebral infarction without residual deficits; F17.210 Nicotine dependence, cigarettes, uncomplicated
CPT/HCPCS: 72125; 72128; 72131; 74177; 80053; 81001; 85025; 96374; 96375; 99285; Q9967

== ENCOUNTER 2023-06-27 11:00 | Outpatient (RCR) | payer BC, SELFPAY | END 2023-06-27 12:00 | disposition home or self-care (01) | LOC: PT 11:00 | PROVIDERS: PCP Nurse Practitioner Family; Visit Provider Nurse Practitioner Family | DX: M54.50 Low back pain, unspecified (principal); M54.16 Radiculopathy, lumbar region | CPT/HCPCS: 97014; 97110; 97112; 97140; 97163; G0283 ==

== ENCOUNTER 2023-11-07 10:00 | Outpatient (RCR) | payer BC, SELFPAY | END 2023-11-07 10:05 | disposition home or self-care (01) | LOC: OT 10:00 | PROVIDERS: Visit Provider Physician Assistant | DX: M24.521 Contracture, right elbow (principal) | CPT/HCPCS: 97010; 97014; 97035; 97110; 97140; 97164; 97166; 97530; G0283 ==

== ENCOUNTER 2023-12-05 09:33 | Outpatient (CLI) | payer BC, SELFPAY ==
--- NOTE | 2023-12-05 09:37 | CT_ITS ---
FINAL REPORT CLINICAL HISTORY: KIDNEY MASS COMPARISON: 05/12/2023 FINDINGS: The lung bases are clear. There is a large calcified subcarinal lymph node measuring 5.2 cm in greatest dimension. There is also a calcified left hilar lymph node measuring 2.4 cm. There is mild fatty infiltration of the liver. The gallbladder is present. The spleen is unremarkable. The adrenals are normal. The pancreas is unremarkable. Bilateral renal cysts are noted. Individual cysts measure up to 5.4 cm in diameter. There is streak artifact arising from lumbar fusion hardware. Scattered diverticula are noted in the sigmoid colon. The urinary bladder is incompletely distended. Precontrast images demonstrate no nephrolithiasis. IMPRESSION: Large subcarinal and left hilar calcified nodes. Benign-appearing cysts in the kidneys. Reviewed, Interpreted and Dictated by Tobi Manning MD Transcribed by Talia Crabtree Authenticated and [facility]
[2023-12-05 10:20] LABS: Blood Urea Nitrogen 20 mg/dl (9-20); Estimated Glomerular Filt Rate 70 ml/min (>60); GFR (African American) 84 ML/MIN (>60)
[2023-12-05] MEDS: IOPAMIDOL-370 (76%);100ML BOTTLE 75 ML IV (10:46)
[2023-12-05] MEDS: SODIUM CHLORIDE 0.9% 10ML SYR (RAD ONLY) 10 ML IV (10:46)
== END 2023-12-05 23:59 | disposition home or self-care (01) ==
LOC: RAD 09:34
PROVIDERS: PCP Nurse Practitioner Family; Visit Provider Urology
DX: N28.89 Other specified disorders of kidney and ureter (principal)
CPT/HCPCS: 36415; 74178; 82565; 84520; Q9967

== ENCOUNTER 2024-01-21 15:09 | Outpatient (CLI) | payer BC, SELFPAY ==
[2024-01-21 13:45] LABS: Alanine Aminotransferase 27 U/L (12-78); Albumin Level 4.2 g/dl (3.5-5.0); Albumin/Globulin Ratio 1.8 (1.1-1.8); Alkaline Phosphatase 90 U/L (38-126); Anion Gap 8.1 mEq/L (5-15); Aspartate Amino Transferase 36 U/L (17-59); Bilirubin,Total 0.8 mg/dl (0.2-1.3); Blood Urea Nitrogen 18 mg/dl (9-20); Calcium 9.2 mg/dl (8.4-10.2); Carbon Dioxide 31 mmol/L (22.0-30.0); Chloride 103 mmol/L (98-107); Estimated Glomerular Filt Rate 70 ml/min (>60); GFR (African American) 84 ML/MIN (>60); Globulin 2.4 g/dL (1.3-3.2); Glucose 111 mg/dl (74-100); Potassium 4.1 mmoL/L (3.5-5.1); Sodium 138 mmol/L (136-145); Total Protein,Serum 6.6 g/dl (6.3-8.2); Uric Acid 4.3 mg/dl (3.5-8.5)
[2024-01-21 14:25] LABS: Erythrocyte Sedimentation Rate 11 mm/hr (0-20)
[2024-01-21 17:02] LABS: Hemoglobin A1C 7.9 % (4.0-6.0)
[2024-01-23 08:19] LABS: RA Latex Turbid. <10.0 IU/mL (<14.0)
== END 2024-01-21 23:59 | disposition home or self-care (01) ==
LOC: LAB.DROPOF 15:09
PROVIDERS: PCP Nurse Practitioner Family; Visit Provider Nurse Practitioner Family
DX: M25.50 Pain in unspecified joint (principal); E11.9 Type 2 diabetes mellitus without complications
CPT/HCPCS: 80053; 83036; 84550; 85651; 86038; 86431

== ENCOUNTER 2024-04-06 13:00 | Outpatient (RCR) | payer BC, SELFPAY | END 2024-04-06 23:59 | disposition home or self-care (01) | LOC: PT 13:00 | PROVIDERS: PCP Nurse Practitioner Family; Visit Provider Physical Medicine & Rehabilitation | DX: Z98.890 Other specified postprocedural states (principal); M54.2 Cervicalgia; M54.6 Pain in thoracic spine | CPT/HCPCS: 97014; 97110; 97163; 97530; G0283 ==

== ENCOUNTER 2024-04-06 14:00 | Outpatient (RCR) | payer BC, SELFPAY | END 2024-04-06 23:59 | disposition home or self-care (01) | LOC: OT 14:00 | PROVIDERS: Visit Provider Physical Medicine & Rehabilitation | DX: Z98.890 Other specified postprocedural states (principal); M54.2 Cervicalgia; M54.6 Pain in thoracic spine | CPT/HCPCS: 97014; 97110; 97140; 97165; G0283 ==

== ENCOUNTER 2024-04-22 10:07 | Outpatient (RCR) | payer OTHER, SELFPAY | END 2024-04-22 23:59 | disposition home or self-care (01) | LOC: OT 10:07 | PROVIDERS: Visit Provider Physical Medicine & Rehabilitation | DX: Z98.890 Other specified postprocedural states (principal); M54.2 Cervicalgia; M54.6 Pain in thoracic spine | CPT/HCPCS: 97014; 97110; 97140; G0283 ==

== ENCOUNTER 2024-04-22 10:11 | Outpatient (RCR) | payer OTHER, SELFPAY | END 2024-04-22 23:59 | disposition home or self-care (01) | LOC: PT 10:11 | PROVIDERS: Visit Provider Physical Medicine & Rehabilitation | DX: Z98.890 Other specified postprocedural states (principal); M54.2 Cervicalgia; M54.6 Pain in thoracic spine | CPT/HCPCS: 97110; 97530 ==

== ENCOUNTER 2024-07-02 07:31 | Outpatient (CLI) | payer OTHER, SELFPAY ==
--- NOTE | 2024-07-02 | MR_ITS ---
FINAL REPORT TECHNIQUE: Multiplanar MR without contrast CLINICAL HISTORY: right sided back pain. hx lumbar surgery. COMPARISON: 08/18/2021 FINDINGS: There has been interval fusion of L3 through L5. Anterolisthesis at L3 on L4 is stable. There is minimal anterolisthesis of L4 on L5 which is new since the prior exam. Marrow signal pattern is unremarkable aside from hardware artifact. L1-2: Moderate annular disc bulge. Mild canal stenosis. Mild neural foraminal narrowing. Findings stable from the previous. L2-3: No focal disc protrusion. Borderline central canal stenosis, worse from prior. Mild neural foraminal narrowing. L3-4: Postoperative changes from fusion and laminectomy. Improved central canal stenosis. Moderate neural foraminal narrowing. L4-5: Postoperative changes from fusion and laminectomy. Moderate canal stenosis, similar to the prior study. Moderate bilateral neural foraminal narrowing, similar to the prior study. L5-S1: Moderate annular disc bulge with moderate central canal stenosis, similar to the prior study. Moderate bilateral neural foraminal narrowing. IMPRESSION: Interval fusion L3 through L5. Mild subluxation L3 on L4 and L4 on L5. Multilevel canal stenosis as above with mild worsening at L2-3 and mild improvement at L3-4. Reviewed, Interpreted and Dictated by Mak Rose MD Transcribed by Talia Crabtree Authenticated and [facility]
--- NOTE | 2024-07-02 | MR_ITS ---
FINAL REPORT TECHNIQUE: Multiplanar MR without contrast CLINICAL HISTORY: right sided back pain. COMPARISON: None FINDINGS: There is normal vertebral height and alignment. Marrow signal is normal. Multiple renal masses are noted most compatible with cysts, largest on the right measuring greater than 6 cm. T1-2: Minimal annular disc bulge. T2-3: Mild annular disc bulge. T3-4: Mild annular disc bulge. T4-5: Mild annular disc bulge. T5-6: Mild annular disc bulge. Moderate facet arthropathy. Borderline central canal stenosis. Mild neural foraminal narrowing. T6-7: Unremarkable. T7-8: Mild annular disc bulge. Moderate facet arthropathy. Mild bilateral neural foraminal narrowing. T8-9: Moderate annular disc bulge. Moderate-sized left lateral disc osteophyte complex contacting left spinal canal and left nerve root. Moderate central canal stenosis. Moderate bilateral neural foraminal narrowing. T9-10: Moderate annular disc bulge with facet overgrowth. Moderate central canal stenosis. T10-11: Moderate annular disc bulge with facet overgrowth. Moderate central canal stenosis. T11-12: Mild facet overgrowth. No canal stenosis. T12-L1: Unremarkable. IMPRESSION: Bony hypertrophic changes and degenerative disease contributing to canal stenosis at T8-9, T9-10, and T10-11 as above. Reviewed, Interpreted and Dictated by Mak Rose MD Transcribed by Talia Crabtree Authenticated and [facility]
== END 2024-07-02 23:59 | disposition home or self-care (01) ==
LOC: RAD 07:32
PROVIDERS: PCP Nurse Practitioner Family; Visit Provider Orthopaedic Surgery
DX: M54.41 Lumbago with sciatica, right side (principal); M54.42 Lumbago with sciatica, left side; G89.29 Other chronic pain
CPT/HCPCS: 72146; 72148

== ENCOUNTER 2024-10-27 12:00 | Outpatient (CLI) | payer MEDICARE, SELFPAY ==
--- OUTSIDE RECORDS SUMMARY | 2024-09-15 12:29 | XMS_ITS | Encounter Summary ---
Author Organization Healthcare Address [address] [id number] Care Team Providers Care Java Developer Analyst Name Role Phone Rachael Gregg APRN Primary Care Provider [phone] Encounter Details Date Type Department Care Team (Latest Contact Info) Description 09/15/2024 12:29 PM EDT - 09/15/2024 1:59 PM EDT Hospital Encounter Medical Office Building Radiology [facility] [place] [address] Hip pain, right; Primary osteoarthritis of right hip Discharge Disposition: Home or Self Care Social History Tobacco Use Types Packs/Day Years Used Date Smoking Tobacco: Some Days Cigarettes 0.2 10.1 Started: 2018 Smokeless Tobacco: Current Comments:Smoke cigarettes ar e a little bit Alcohol Use Standard Drinks/Week Comments Not Currently 1 (1 standard drink = 0.6 oz pur e alcohol) 6 pack every 2 months PHQ-2 Answer Date Recorded Patient Health Questionnaire-2 Score 0 07/16/2024 PHQ-9 Answer Date Recorded Patient Health Questionnaire-9 Score 0 07/16/2024 Sex and Gender Information Value Date Recorded Sex Assigned at Not on file Legal Sex Male 8:54 PM EDT Gender Identity Not on file Sexual Orientation Not on file documented as of this encounter Medications at Time of Discharge acetaminophen (Tylenol) 500 MG tablet Take 2 tablets (1,000 mg) by mouth every 6 (six) hours. 02/22/2024 albuterol 108 (90 Base) MCG/ACT inhaler Inhale 2 puffs as needed. cholecalciferol (Vitamin D-3) 50 MCG (2000 UT) capsule Take 1 capsule (2,000 Units) by mouth 1 (one) time each day. DULoxetine (Cymbalta) [address] capsule Take 1 capsule (30 mg) by mouth 1 (one) time each day. 01/13/2024 gabapentin (Neurontin) 400 MG capsule Take 2 capsules (800 mg) by mouth 3 (three) times a day. 02/22/2024 gabapentin (Neurontin) 800 MG tablet Take 1 tablet by mouth 3 times a day. 09/11/2024 hydroCHLOROthiazide (HYDRODiuril) 12.5 MG tablet Take 1 tablet (12.5 mg) by mouth daily. ibuprofen 400 MG tablet Take 1 tablet (400 mg) by mouth every 8 (eight) hours if needed for mild pain. 02/22/2024 irbesartan (Avapro) 150 MG tablet Take 1 tablet (150 mg) by mouth nightly. Jardiance 10 MG Take 1 tablet by mouth. 09/11/2024 loratadine (Claritin) 10 MG tablet Take 1 tablet (10 mg) by mouth daily. As needed meloxicam (Mobic) 7.5 MG tablet 03/19/2024 methocarbamol (Robaxin) 500 MG tablet Take 1 tablet (500 mg) by mouth every 6 (six) hours. 02/22/2024 methocarbamol (Robaxin) 750 MG tablet Take 1 tablet (750 mg) by mouth 4 (four) times a day. 42 tablet 3 04/14/2024 metoprolol tartrate (Lopressor) 50 MG tablet Take 1 tablet (50 mg) by mouth 2 (two) times a day. naloxone (Narcan) 4 mg/0.1 mL nasal spray 1. Give 1 spray in nostril for no/slow breathing or cannot wake after opioid use 2. Call 911 3. Repeat in other nostril if symptoms continue 1 each 02/22/2024 omeprazole (PriLOSEC) [address] capsule Take by mouth 1 (one) time each day. 10/23/2023 ondansetron ODT (Zofran-ODT) 4 MG disintegrating tablet Take 1 tablet (4 mg) by mouth every 6 (six) hours if needed for nausea or vomiting. 20 tablet 02/22/2024 oxyCODONE (Roxicodone) 10 MG immediate release tablet Take 1 tablet (10 mg) by mouth every 4 (four) hours if needed for moderate pain. 02/22/2024 oxyCODONE-acetaminop hen (Percocet) 7.5-325 MG tablet Last taken 06/10/24 03/20/2024 polyethylene glycol (Miralax) 17 g packet Take 17 g by mouth 2 (two) times a day. 02/22/2024 rosuvastatin (Crestor) 20 MG tablet Take 1 tablet (20 mg) by mouth nightly. tamsulosin (Flomax) 0.4 MG 24 hr capsule Take 1 capsule (0.4 mg) by mouth 1 (one) time each day with dinner. tiZANidine (Zanaflex) 4 MG tablet Take 1 tablet by mouth 3 times a day. 09/11/2024 documented as of this encounter Plan of Treatment Upcoming Encounters Date Type Department Care Team (Latest Contact Info) Description 11/16/2024 11:50 AM EDT Hospital Encounter [facility] [address] [place] [address] Sergo Bunn MD [address] [address] 11/16/2024 11:50 AM EDT - 11/16/2024 2:20 PM EDT Surgery [facility] [address] [place] [address] Sergo Bunn MD [address] [place] [address] ARTHROPLASTY, HIP, TOTAL, ANTERIOR APPROACH [61585 (CPT )] 12/01/2024 10:20 AM EDT Office Visit Medical Office Building [facility] [address] , [address] [place] [address] Letha Rivera PA [address] [place] [address] 12/28/2024 11:00 AM EDT Office Visit Medical Office Building [facility] [address], [address] [place] [address] Jacek Gregory MD [address] [place] [address] 12/29/2024 11:10 AM EDT Office Visit Medical Office Building [facility] [address], [address] [place] [address] Sergo Bunn MD [address] [place] [address] Scheduled Procedures Name Priority Associated Diagnoses Date/Ti me ARTHROPLASTY, HIP, TOTAL, ANTERIOR APPROACH Primary osteoarthritis of right hip 11/16/2024 11:50 AM EDT documented as of this encounter Goals Goal Patient Goal Type Associated Problems Recent Progress Patient-Stated? Author Patient will verbalize understanding of orthotic wear , care and precautions. Occupational Therapy No Toña Brooks documented as of this encounter Procedures Procedure Name Priority Date/Time Associated Diagnosis Comments XR HIP RIGHT 2 OR 3 VIEWS Routine 09/15/2024 12:37 PM EDT Hip pain, right Primary osteoarthritis of right hip documented in this encounter Results * New Patient: XR Hip (AP Pelvis Standing with Robert Marker / Frog Leg Lateral Standing) (09/15/2024 12:37 PM EDT) Anatomical Region Laterality Modality Lower Extremities, Hip Right Digital R adiography Impressions 09/15/2024 1:16 PM EDT Severe right hip osteoporosis with chhu-qq-ldmt articulation, progressed from 2016. Aidy-xs-wzhmqhyd left hip osteoarthrosis. CRITICAL RESULT: No. COMMUNICATION: Per this written report. Drafted by Joi Richter MD on 09/15/2024 1:14 PM Final report signed by Joi Richter MD on 09/15/2024 1:16 PM Narrative 09/15/2024 1:16 PM EDT CLINICAL INDICATION: hip pain TECHNIQUE: XR HIP RIGHT 2 OR 3 VIEWS COMPARISON: Outside radiograph from 05/27/2015 FINDINGS: Severe right hip joint space loss with large degenerative subchondral cysts. Mild to moderate left hip joint space narrowing. Awcl-fd-fybghhnd osteophytosis of the right hip. Moderate degenerative changes of the SI joints bilaterally. Partially imaged lumbar spine hardware. The pubic symphysis is intact with mild to moderate degenerative changes. Pelvic and greater trochanter enthesopathy. Procedure Note Joi Richter MD - 09/15/2024 CLINICAL INDICATION: hip pain TECHNIQUE: XR HIP RIGHT 2 OR 3 VIEWS COMPARISON: Outside radiograph from 05/27/2015 FINDINGS: Severe right hip joint space loss with large degenerative subchondralcysts. Mild to moderate left hip joint space narrowing. Bjst-ns-dwmrjeltowckjsadxkftf of the right hip. Moderate degenerative changes of the SIjoints bilaterally. Partially imaged lumbar spine hardware. The pubicsymphysis is intact with mild to moderate degenerative changes. Pelvic andgreater trochanter enthesopathy. IMPRESSION: Severe right hip osteoporosis with qubc-xx-pwpq articulation, progressedfrom 2015. Tejz-dq-uaomguuw left hip osteoarthrosis. CRITICAL RESULT: No. COMMUNICATION: Per this written report. Drafted by Joi Richter MD on 09/15/2024 1:14 PM Final report signed by Joi Richter MD on 09/15/2024 1:16 PM Sergo Bunn MD IMG XR PROCEDURES Final Resu lt documented in this encounter Visit Diagnoses Diagnosis Hip pain, right Pain in joint, pelvic region and thigh Primary osteoarthritis of right hip Primary osteoarthritis of right hip- Primary Primary osteoarthritis of right hip documented in this encounter Additional Health Concerns Assessment Noted Time PHQ-9 Depression Total Score: 0 07/17/19 25 9:59 AM EDT A fall risk assessment has been complete d for the patient 09/15/2024 12:50 PM EDT A Body Mass Index follow-up plan has been documented for the patient 09/15/2024 1:16 PM EDT documented as of this encounter Care Teams Java Developer Analyst Relationship Specialty Start Date End Date Rachael Gregg APRN [address] [place] [address] PCP - General 07/10/23 documented as of this encounter
--- OUTSIDE RECORDS SUMMARY | 2024-09-15 12:40 | XMS_ITS | Encounter Summary ---
Author Organization Healthcare Address [address] [place] [address] Care Team Providers Care Administrative Appeals Tribunal Member Name Role Phone GreggRachael ferguson Andrew OATES Primary Care Provider [phone] Reason for Visit * Reason Comments Follow-up Encounter Details Date Type Department Care Team (Latest Contact Info) Description 09/15/2024 12:40 PM EDT Office Visit Medical Office Building [facility] [address], [address] [place] [address] Sergo Bunn MD [address] [place] [address] Hip pain, right (Primary Dx); Primary osteoarthritis of right hip Social History Tobacco Use Types Packs/Day Years Used Date Smoking Tobacco: Some Days Cigarettes 0.2 10.1 Started: 2018 Smokeless Tobacco: Current Tobacco Cessation:Ready to Q uit: Not Asked; Counseling Given: Not Answered Comments:Smoke cigarettes are a little bit Alcohol Use Standard Drinks/Week [...] on file documented as of this encounter Last Filed Vital Signs Vital Sign Reading Time Taken Comments Blood Pressure 116/78 09/15/2024 12:44 PM EDT Pulse 66 09/15/2024 12:44 PM EDT Temperature - - Respiratory Rate - - Oxygen Saturation 98% 09/15/2024 12:44 PM EDT Inhaled Oxygen Concentration - - Weight 98.2 kg (216 lb 7.9 oz) 09/15/2024 12:44 PM EDT Height 180.3 cm (5' 11 ) 09/15/2024 12:44 PM EDT Body Mass Index 30.19 09/15/2024 12:44 PM EDT documented in this encounter Miscellaneous Notes * Progress Notes - Sergo Bunn MD - 09/15/2024 12:40 PM EDT Subjective: Lewis Chan is a 54 y.o. y/o male who comes in today for follow up of right hip pain. Patient was last seen in clinic on 04/14/24 where there was concern for ongoing lumbar spine and radicular issues from past lumbar fusion. Patient was seen by Dr. Gregory on 08/24/24 where he stated that from asurgical standpoint, there were no future surgical plans for him based on his imaging, symptoms, and EMG results. The patient localizes the pain/problem to the anterior aspect of the right hip into the groin. He states that he is still experiencing muscle spasm when extending his knee and or going to lay down at night. The patient has had the problem for several years at this pint. The problem began without any known injury or trauma to the area. The patient reports the pain as Aching and Sharp. The pain/problem is better with sitting. The pain/problem is worse with standing and walking and states that he feels a decrease in hip flexion ROM in the right hip. The pain is Continuous and Night Pain. The following treatments have been attempted: Anti-inflammatories and Injections. Past Medical History[1] Surgical History[2] Social History Socioeconomic History Marital status: Single Spouse name: Not on file Number of children: Not on file Years of education: Not on file Highest education level: Not on file Occupational History Not on file Tobacco Use Smoking status: Some Days Current packs/day: 0.25 Average packs/day: 0.3 packs/day for 10.0 years (2.5 ttl pk-yrs) Types: Cigarettes Start date: 2018 Smokeless tobacco: Current Tobacco comments: Smoke cigarettes are a little bit Vaping Use Vaping status: Some Days Substances: Nicotine, Flavoring Devices: Disposable Substance and Sexual Activity Alcohol use: Not Currently Alcohol/week: 1.0 standard drink of alcohol Types: 1 Cans of beer per week Comment: 6 pack every 2 months Drug use: Never Sexual activity: Yes Partners: Female Other Topics Concern Not on file Social History Narrative Not on file Social Drivers of Health Financial Resource Strain: Not on file Food Insecurity: No Food Insecurity (04/25/2023) Received from [facility] Food Insecurity Food run out past 12 months: Not on file Food did not last past 12 months: Not on file Transportation Needs: Not on file Physical Activity: Not on file Stress: Not on file Social Connections: Low Risk (04/25/2023) Received from [facility] Family and Community Support Help with Day to Day Activities: Not on file Feeling Lonely or Isolated: Not on file Intimate Partner Violence: Unknown (01/21/2023) Received from [facility] Abuse Screen Unsafe at Home or Work/School: Not on file Feels Threatened by Someone?: Not on file Does Anyone Keep You from Contacting Others or Doint Things Outside the Home?: Not on file Physical Sign of Abuse Present: Not on file Housing Stability: Low Risk (04/25/2023) Received from [facility] Housing Stability Living situation today: Not on file Living situation problems: Not on file Allergies[3] Current Medications[4] I have reviewed and updated the patient's past medical history, past surgical history, social history, and family history. This is located both in the patient's note and their intake form that has been scanned into the medical record for today's visit. 14 point review of systems was reviewed per signed intake sheet and is otherwise negative except asnoted above. Objective: Body mass index is 30.19 kg/m??. 06/30/2024 10:49 AM 07/10/2024 11:06 AM 07/16/2024 9:57 AM 08/24/2024 9:57 AM 08/24/2024 12:19 PM 08/26/2024 9:55 AM 09/15/2024 12:44 PM Vitals Systolic 134 133 129 115 138 119 116 Diastolic 70 81 86 75 77 77 78 Heart Rate 64 80 84 75 77 77 66 Resp 17 16 Height (cm) 182.9 cm 182.9 cm 182.9 cm 180.3 cm 180.3 cm Weight (kg) 98.431 kg 98.431 kg 98 kg 97.977 kg 97.977 kg 98.2 kg BMI 29.43 kg/m2 29.43 kg/m2 29.3 kg/m2 29.29 kg/m2 30.13 kg/m2 30.19 kg/m2 BSA (m2) 2.24 m2 2.24 m2 2.23 m2 2.23 m2 2.22 m2 2.22 m2 Visit Report Report Report Report Report Report Hip: Trendelenburg: Positive Limp: Positive Leg Lengths: RLE short ROM: HF 100 Pain location: Anterior My independent interpretation of radiographic testing shows: bone on bone articulation with loss ofjoint space, subchondral sclerosis, cystic changes Notes reviewed: Spine Results of tests reviewed: previous radiographs Assessment and plan: Hip pain, right Primary osteoarthritis of right hip Orders Placed This Encounter New Patient: XR Hip (AP Pelvis Standing with Robert Marker / Frog Leg Lateral Standing) XR Lumbar Spine 2 or 3 Views CBC W/O Differential Basic metabolic panel Albumin, Plasma Hemoglobin A1c Nicotine Cotinine Metabolite Case Request Operating Room: ARTHROPLASTY, HIP, TOTAL, ANTERIOR APPROACH No follow-ups on file. Patient has evidence of chronic end-stage arthritis of the right, hip with exacerbation. Based on discussion with the patient as well as review of the patient???s previous medical records and notes, the patient has now failed previous nonoperative treatment with activity modification, anti-inflammatories, corticosteroid injections, and assistive devices. Upon personal review of the preoperative imaging, the radiographs demonstrate severe joint space narrowing with subchondral sclerosis and reactive osteophytes. Risks complications and benefits of the procedure have now been discussed preoperatively to include but not limited to infection, bleeding, anesthesia risk, sciatic nerve palsy, insta bility, leg length discrepancy, aseptic loosening, osteolysis, DVT, continued pain, iatrogenic fracture, MT, stroke, and . The patient is felt to be an appropriate candidate for total hip arthroplasty. The patient will require preoperative medical clearance joint arthroplasty education. Risk stratification has demonstrated patient will be treated with chemical and mechanical DVT prophylaxis postoperatively. We will have the patient meet with the adjusto writer operator today to try and find a date and time for the surgery. We will also get new xrays today to evaluate for the spinopelvic mobility to aid in determining proper acetabular cup position. We have also ordered preoperative laboratory workup to include CBC, BMP, Vitamin D Level, and Albumin to help with medical optimization prior to surgery. Rx management per plan. [1] Past Medical History: Diagnosis Date Anxiety Arthritis Asthma Cervical disc disorder 1989 Chronic kidney disease cysts on kidneys Chronic pain disorder CTS (carpal tunnel syndrome) Delayed emergence from general anesthesia Depression 2009 Diabetes mellitus (CMS/[facility]) Hyperlipidemia Hypertension Injury of back Joint pain 1989 Leg pain 1989 Low back pain 1989 Muscle pain Neck pain 2014 Neuromuscular disorder (CMS/HCC) PONV (postoperative nausea and vomiting) Sleep apnea [2] Past Surgical History: Procedure Laterality Date BACK SURGERY nawaf, fused L4-5 CARPAL TUNNEL RELEASE Bilateral CERVICAL LAMINECTOMY ELBOW SURGERY Bilateral Elbow Surgery from [facility] HAND SURGERY 08/18/2023 KNEE SURGERY Left scope NECK SURGERY 02/18/2024 SPINE SURGERY 2021 and 2023 [3] Allergies Allergen Reactions Iodine Rash [4] Current Outpatient Medications Medication Sig Dispense Refill acetaminophen (Tylenol) 500 MG tablet Take 2 tablets (1,000 mg) by mouth every 6 (six) hours. albuterol 108 (90 Base) MCG/ACT inhaler Inhale 2 puffs as needed. gabapentin (Neurontin) 400 MG capsule Take 2 capsules (800 mg) by mouth 3 (three) times a day. gabapentin (Neurontin) 800 MG tablet Take 1 tablet by mouth 3 times a day. hydroCHLOROthiazide (HYDRODiuril) 12.5 MG tablet Take 1 tablet (12.5 mg) by mouth daily. ibuprofen 400 MG tablet Take 1 tablet (400 mg) by mouth every 8 (eight) hours if needed for mild pain. irbesartan (Avapro) 150 MG tablet Take 1 tablet (150 mg) by mouth nightly. Jardiance 10 MG Take 1 tablet by mouth. loratadine (Claritin) 10 MG tablet Take 1 tablet (10 mg) by mouth daily. As needed meloxicam (Mobic) 7.5 MG tablet methocarbamol (Robaxin) 500 MG tablet Take 1 tablet (500 mg) by mouth every 6 (six) hours. methocarbamol (Robaxin) 750 MG tablet Take 1 tablet (750 mg) by mouth 4 (four) times a day. 42 tablet 3 metoprolol tartrate (Lopressor) 50 MG tablet Take 1 tablet (50 mg) by mouth 2 (two) times a day. omeprazole (PriLOSEC) [address] capsule Take by mouth 1 (one) time each day. oxyCODONE (Roxicodone) 10 MG immediate release tablet Take 1 tablet (10 mg) by mouth every 4 (four)hours if needed for moderate pain. oxyCODONE-acetaminophen (Percocet) 7.5-325 MG tablet Last taken 06/10/24 rosuvastatin (Crestor) 20 MG tablet Take 1 tablet (20 mg) by mouth nightly. tamsulosin (Flomax) 0.4 MG 24 hr capsule Take 1 capsule (0.4 mg) by mouth 1 (one) time each day with dinner. tiZANidine (Zanaflex) 4 MG tablet Take 1 tablet by mouth 3 times a day. cholecalciferol (Vitamin D-3) 50 MCG (2000 UT) capsule Take 1 capsule (2,000 Units) by mouth 1 (one) time each day. (Patient not taking: Reported on 09/15/2024) DULoxetine (Cymbalta) [address] capsule Take 1 capsule (30 mg) by mouth 1 (one) time each day. (Patient not taking: Reported on 09/15/2024) naloxone (Narcan) 4 mg/0.1 mL nasal spray 1. Give 1 spray in nostril for no/slow breathing or cannot wake after opioid use 2. Call 911 3. Repeat in other nostril if symptoms continue (Patient not takin. Give 1 spray in nostril for no/slow breathing or cannot wake after opioid use 2. Call 911 3.Repeat in other nostril if symptoms continue Reported on 09/15/2024) 1 each 0 ondansetron ODT (Zofran-ODT) 4 MG disintegrating tablet Take 1 tablet (4 mg) by mouth every 6 (six)hours if needed for nausea or vomiting. (Patient not taking: Reported on 09/15/2024) 20 tablet 0 polyethylene glycol (Miralax) 17 g packet Take 17 g by mouth 2 (two) times a day. (Patient not taking: Reported on 09/15/2024) No current facility-administered medications for this visit. * Progress Notes - Sylvia Miller RN - 09/15/2024 12:40 PM EDT Patient was provided with Total Joint Education Packet. Patient was educated using information provided in packet. Patient instructed to schedule PT appointment 4-7 days after surgery date and to schedule prior to having procedure. All questions answered. Contact information for Joint Replacement Nu rse given for patient to call should any questions arise before or after surgery. Pt then met with adjusto writer operator to arrange surgery and Joint Replacement Class date. Reviewed patients allergies, medications, medical and surgical history, and pharmacy verified. Instructed patient to stop NSAIDS, ASA, and OTC vitamins & supplements 1 week prior to procedure. Instructed to ensure any hormone replacement, if taken, is stopped 1 month prior to surgery. Also any dermatological procedures or dental work need to be performed 1 month prior to procedure. Patient instructed to review educational material and write down any questions or concerns in the notes section and bring the packet to the hospital and all appointments. Patient stated understanding. IPSS 1. Last injection 06/30/24. Patient sent tox-ray today. Prefers to stay over night. Patient vapes sometimes, will completely stop prior to surgery. documented in this encounter Plan of Treatment Upcoming Encounters Date Type Department Care Team (Latest Contact Info) Description 11/16/2024 11:50 AM EDT Hospital Encounter [facility] S Operating Room [address] [place] [address] Sergo Bunn MD [address] [place] [address] 11/16/2024 11:50 AM EDT - 11/16/2024 2:20 PM EDT Surgery [facility] Operating Room [address] [place] [address] Sergo Bunn MD [address] [place] [address] ARTHROPLASTY, HIP, TOTAL, ANTERIOR APPROACH [69895 (CPT )] 12/01/2024 10:20 AM EDT Office Visit Medical Office Building [facility] [address], [address] [place] [address] Letha Rivera PA [address] [place] [address] 12/28/2024 11:00 AM EDT Office Visit Medical Office Building [facility] [address], [address] [place] [address] Jacek Gregory MD [address] [place] [address] 12/29/2024 11:10 AM EDT Office Visit Medical Office Building [facility] [address], [address] [place] [address] Sergo Bunn MD [address] [place] [address] Scheduled Orders Name Type Priority Associated Diagnoses Orde r Schedule CBC W/O Differential Lab Routine Hip pain, right Primary osteoarthritis of right hip 1 Occurrences starting 09/15/2024 until 09/15/2025 Basic metabolic panel Lab Routine Hip pain, right Primary osteoarthritis of right hip 1 Occurrences starting 09/15/2024 until 09/15/2025 Albumin, Plasma Lab Routine Hip pain, right Primary osteoarthritis of right hip 1 Occurrences starting 09/15/2024 until 09/15/2025 Hemoglobin A1c Lab Routine Hip pain, right Primary osteoarthritis of right hip 1 Occurrences starting 09/15/2024 until 09/15/2025 Nicotine Cotinine Metabolite Lab Routine Hip pain, right Primary osteoarthritis of right hip 1 Occurrences starting 09/15/2024 until 09/15/2025 Scheduled Procedures Name Priority Associated Diagnoses Date/Ti me ARTHROPLASTY, HIP, TOTAL, ANTERIOR APPROACH Primary osteoarthritis of right hip 11/16/2024 11:50 AM EDT documented as of this encounter Goals Goal Patient Goal Type Associated Problems Recent Progress Patient-Stated? Author Patient will verbalize understanding of orthotic wear , care and precautions. Occupational Therapy No Toña Brooks Ros documented as of this encounter Results * XR Lumbar Spine 2 or 3 Views (09/15/2024 2:20 PM EDT) Anatomical Region Laterality Modality Spine, L-spine Digital Radiogra phy Impressions 09/15/2024 2:56 PM EDT 1. Mild pelvic retroversion in the seated position. 2. Posterior fusion from L3 to L5 without hardware complication. 3. Severe degenerative disc changes at L5-S1. 4. Mild posterior subluxation at L1-L2 and L2-L3. CRITICAL RESULT: No. COMMUNICATION: Per this written report. Drafted by Daniel Raza MD on 09/15/2024 2:53 PM Final report signed by Daniel Raza MD on 09/15/2024 2:56 PM Narrative 09/15/2024 2:56 PM EDT CLINICAL INDICATION: pain TECHNIQUE: XR LUMBAR SPINE 2 OR 3 VIEWS COMPARISON: January 16, 2024 FINDINGS: 3 views of the lumbar spine show posterior fusion from L3 to L5. Severe degenerative disc changes at L5-S1. Posterior subluxation at L1-L2 and L2-L3. Mild loss of sacral slope and lumbar lordosis in the seated position. Procedure Note Daniel Raza MD - 09/15/2024 CLINICAL INDICATION: pain TECHNIQUE: XR LUMBAR SPINE 2 OR 3 VIEWS COMPARISON: January 16, 2024 FINDINGS: 3 views of the lumbar spine show posterior fusion from L3 to L5. Severedegenerative disc changes at L5-S1. Posterior subluxation at L1-L2 andL2-L3. Mild loss of sacral slope and lumbar lordosis in the seatedposition. IMPRESSION: 1.Mild pelvic retroversion in the seated position. 2.Posterior fusion from L3 to L5 without hardware complication. 3.Severe degenerative disc changes at L5-S1. 4.Mild posterior subluxation at L1-L2 and L2-L3. CRITICAL RESULT: No. COMMUNICATION: Per this written report. Drafted by Daniel Raza MD on 09/15/2024 2:53 PM Final report signed by Daniel Raza MD on 09/15/2024 2:56 PM us Sergo Bunn MD IMG XR PROCEDURES Final Resu lt * New Patient: XR Hip (AP Pelvis Standing with Robert Marker / Frog Leg Lateral Standing) (09/15/2024 12:37 PM EDT) Anatomical Region Laterality Modality Lower Extremities, Hip Right Digital R adiography Impressions 09/15/2024 1:16 PM EDT Severe right hip osteoporosis with axht-gh-zlwq articulation, progressed from 2015. Luyc-fe-uulctsan left hip osteoarthrosis. CRITICAL RESULT: No. COMMUNICATION: [...] to moderate left hip joint space narrowing. Zzpq-uc-hjnnxexu osteophytosis of the right hip. Moderate degenerative [...] to moderate left hip joint space narrowing. Pfqd-fc-qigqmgiybdtpimttcaalj of the right hip. Moderate degenerative changes of the SIjoints bilaterally. Partially imaged lumbar spine hardware. The pubicsymphysis is intact with mild to moderate degenerative changes. Pelvic andgreater trochanter enthesopathy. IMPRESSION: Severe right hip osteoporosis with qkps-fs-xajz articulation, progressedfrom 2015. Segw-na-lrhqbcal left hip osteoarthrosis. CRITICAL RESULT: No. COMMUNICATION: Per this written report. Drafted by Joi Richter MD on 09/15/2024 1:14 PM Final report signed by Joi Richter MD on 09/15/2024 1:16 PM Sergo Bunn MD IMG XR PROCEDURES Final Resu lt documented in this encounter Visit Diagnoses Diagnosis Hip pain, right- Primary Pain in joint, pelvic region and thigh Primary osteoarthritis of right hip Hip pain, right Pain in joint, pelvic region and thigh Primary osteoarthritis of right hip Primary osteoarthritis of right hip- Primary Primary osteoarthritis of right hip Primary osteoarthritis of right hip documented in this encounter Additional Health Concerns Assessment Noted Time PHQ-9 Depression Total Score: 0 07/17/19 25 9:59 AM EDT A fall risk assessment has been complete d for the patient 09/15/2024 12:50 PM EDT A Body Mass Index follow-up plan has been documented for the patient 09/15/2024 1:16 PM EDT documented as of this encounter Care Teams Administrative Appeals Tribunal Member Relationship Specialty Start Date End Date Rachael Gregg APRN [address] [place] [address] PCP - General 07/10/23 documented as of this encounter
--- OUTSIDE RECORDS SUMMARY | 2024-09-15 14:00 | XMS_ITS | Encounter Summary ---
Author Organization Healthcare Address [address] [place] [address] Care Team Providers Care Satellite Dish Technician Name Role Phone Rachael Gregg APRN Primary Care Provider [phone] Encounter Details Date Type Department Care Team (Latest Contact Info) Description 09/15/2024 2:00 PM EDT - 09/15/2024 11:59 PM EDT Hospital Encounter Medical Office Building Radiology [address] [place] [address] Primary osteoarthritis of right hip Discharge Disposition: [...] Description 11/16/2024 11:50 AM EDT Hospital Encounter [facility] Operating Room [address] [place] [address] Sergo Bunn MD [address] [address] 11/16/2024 11:50 AM EDT - 11/16/2024 2:20 PM EDT Surgery [facility] Operating Room [address] [place] [address] Sergo Bunn MD [address] [id number] ARTHROPLASTY, HIP, TOTAL, ANTERIOR APPROACH [75085 (CPT )] 12/01/2024 10:20 AM EDT Office Visit Medical Office Building [facility] [address] [place] [address] Letha Rivera PA [address] [place] [address] 12/28/2024 11:00 AM EDT Office Visit Medical Office Building [facility] [address], [address] [place] [address] Jacek Gregory MD [address] [place] [address] 12/29/2024 11:10 AM EDT Office Visit Medical Office Building [facility] [address], [address] [place] [address] Sergo Bunn MD [address] [place] [address] Scheduled Procedures Name Priority Associated [...] Name Priority Date/Time Associated Diagnosis Comments XR LUMBAR SPINE 2 OR 3 VIEWS Routine 09/15/2024 2:20 PM EDT Primary osteoarthritis of right hip documented in this encounter Results * XR Lumbar Spine [...] Daniel Raza MD on 09/15/2024 2:56 PM Sergo Bunn MD IMG XR PROCEDURES Final Resu lt documented in this encounter Visit Diagnoses Diagnosis Primary osteoarthritis of right hip- Primary Primary [...] documented as of this encounter Care Teams Satellite Dish Technician Relationship Specialty Start Date End Date Rachael Gregg APRN [address] [place] [address] PCP - General 07/10/23 documented as of this encounter
--- OUTSIDE RECORDS SUMMARY | 2024-10-27 12:03 | XMS_ITS | Encounter Summary ---
Author Organization Healthcare Address [address] [place] [address] Care Team Providers Care Aircraft Worker Name Role Phone GreggRachael Andrew OATES Primary Care Provider [phone] Encounter Details Date Type Department Care Team (Late st Contact Info) Description 07/02/2024 Orders Only External Location [address] [place] [address] Provider, External Social History Tobacco Use Types Packs/Day Years Used Date Smoking Tobacco: Some Days Cigarettes Smokeless Tobacco: Never Alcohol Use Standard Drinks/Week Comments Not Currently 0 (1 standard drink = 0.6 oz pur e alcohol) 6 pack every 2 months PHQ-2 Answer Date Recorded Patient Health Questionnaire-2 Score 5 06/11/2024 PHQ-9 Answer Date Recorded Patient Health Questionnaire-9 Score 12 06/11/2024 Sex and Gender Information Value Date Recorded Sex Assigned at Not on file Legal Sex Male 8:54 PM EDT Gender Identity Not on file Sexual Orientation Not on file documented as of this encounter Plan of Treatment Upcoming Encounters Date Type Department Care Team (Latest Contact Info) Description 11/16/2024 11:50 AM EDT Hospital Encounter [facility] [address] [place] [address] Sergo Bunn MD [address] [address] 11/16/2024 11:50 AM EDT - 11/16/2024 2:20 PM EDT Surgery [facility] [address] [place] [address] Sergo Bunn MD [address] [place] [address] ARTHROPLASTY, HIP, TOTAL, ANTERIOR APPROACH [26304 (CPT )] 12/01/2024 10:20 AM EDT Office Visit [facility] [address] [place] [address] Letha Rivera PA [address] [place] [address] 12/28/2024 11:00 AM EDT Office Visit [facility] [address], [address] [place] [address] Jacek Gregory MD [address] [place] [address] 12/29/2024 11:10 AM EDT Office Visit [facility] [address] [place] [address] Sergo Bunn MD [address] [place] [address] Scheduled Procedures Name Priority Associated [...] Procedure Name Priority Date/Time Associated Diagnosis Comments MR OUTSIDE IMAGES 07/02/2024 7:43 AM EDT documented in this encounter Results * MR transfer of outside films (07/02/2024 7:43 AM EDT) Anatomical Region Laterality Modality Magnetic Resonan ce 07/02/2024 7:43 AM EDT us External Provider IMG MRI PROCEDURES Final Resul t documented in this encounter Visit Diagnoses Not on filedocumented in this encounter Additional Health Concerns Assessment Noted Time PHQ-9 Depression Total Score: 12 025 1:26 PM EST A fall risk assessment has been complete d for the patient 06/30/2024 10:15 AM EDT A Body Mass Index follow-up plan has been documented for the patient 06/30/2024 12:19 PM EDT documented as of this encounter Care Teams Aircraft Worker Relationship Specialty Start Date End Date Rachael Gregg APRN [address] [place] [address] PCP - General 07/10/23 documented as of this encounter
--- OUTSIDE RECORDS SUMMARY | 2024-10-27 12:03 | XMS_ITS | Encounter Summary ---
Author Organization Healthcare Address [address] [place] [address] Care Team Providers Care Meal Attendant Name Role Phone GreggRachael Andrew OATES Primary Care Provider [phone] Encounter Details Date Type Department Care Team (Late st Contact Info) Description 07/02/2024 Orders Only External Location [address] [place] [address] Provider, External Social History Tobacco Use Types [...] Encounter [facility] [address] [place] [address] Sergo Bunn MD [address] [address] 11/16/2024 11:50 AM EDT - 11/16/2024 2:20 PM EDT Surgery [facility] [address] [place] [address] Sergo Bunn MD [address] [place] [address] ARTHROPLASTY, HIP, TOTAL, ANTERIOR APPROACH [14409 (CPT )] 12/01/2024 10:20 AM EDT Office Visit [facility] [address] [place] [address] Letha Rivera PA [address] [place] [address] 12/28/2024 11:00 AM EDT Office Visit [facility] [address] [place] [address] Jacek Gregory MD [address] [place] [address] 12/29/2024 11:10 AM EDT Office Visit [facility] [address] [place] [address] Sergo Bunn MD [address] [place] [address] Scheduled Procedures Name Priority Associated [...] documented as of this encounter Care Teams Meal Attendant Relationship Specialty Start Date End Date Rachael Gregg APRN [address] [place] [address] PCP - General 07/10/23 documented as of this encounter
--- OUTSIDE RECORDS SUMMARY | 2024-10-27 12:04 | XMS_ITS | Encounter Summary ---
Author Organization [facility] ([place], [place], [place], [place]) Address [address] [place] [address] Care Team Providers Care Travel Agency Manager Name Role Phone GreggRachael sen ИВАН Primary Care Provider [phone] Reason for Referral * CAT Scan (Routine) - Closed Specialty Diagnoses / Procedures Referred By eHrve lopez Referred To Contact Radiology Diagnoses Ureteral fistula Procedures CT ABDOMEN WITH & WITHOUT IV CONTRAST Standard Protocol Xu Martinez MD [address] [place] [address] [address] [place] [address] Phone: tel: fax: Referral ID Status Reason Start Date Expiration Date Visits Re quested Visits Authorized [id number] Closed 08/28/2022 10/26/2022 1 1 Encounter Details Date Type Department Care Team (Late st Contact Info) Description 09/06/2022 Outside Orders [facility] Central Scheduling [address] [place] [address] Xu Martinez MD [address] [place] [address] [address] [id number] Ureteral fistula (Primary Dx) Social History Tobacco Use Types Packs/Day Years Used Date Smoking Tobacco: Some Days Smokeless Tobacco: Former Chew Quit: 11/23/2019 Comments:Girlfriend states h e's never used smokeless tobacco Alcohol Use Standard Drinks/Week Comments Yes 3 (1 standard drink = 0.6 oz pur e alcohol) Occasionally Sex and Gender Information Value Date Recorded Sex Assigned at Not on file Legal Sex Male 1:20 PM CDT Gender Identity Not on file Sexual Orientation Not on file documented as of this encounter Plan of Treatment Upcoming Encounters Date Type Department Care Team (Late st Contact Info) Description 01/18/2025 10:30 AM EDT Appointment [facility] [address] [facility] [address] [place] [address] Samantha Toledo, STUDENT SERVICES REP [address] [facility] [address] [place] [address] 01/18/2025 1:00 PM EDT Office Visit [facility] Pulmonology - [facility] [address] [facility] [address] [place] [address] Samantha Toledo, STUDENT SERVICES REP [address] [facility] [address] [place] [address] 01/26/2025 10:30 AM EDT Office Visit [facility] Urology - [facility] [address] [facility] [address] [place] [address] Xu Martinez MD [address] [facility] [address] [place] [address] documented as of this encounter Visit Diagnoses Diagnosis Ureteral fistula- Primary documented in this encounter Care Teams Travel Agency Manager Relationship Specialty Start Date End Date Rachael Gregg, STUDENT SERVICES REP [address] [place] [address] PCP - General Nurse Practitioner 07/19/23 documented as of this encounter
--- OUTSIDE RECORDS SUMMARY | 2024-10-27 12:04 | XMS_ITS | Encounter Summary ---
Author Organization Healthcare Address [address] [place] [address] Care Team Providers Care Organizational Development Consultant Name Role Phone GreggRachael ferguson Andrew OATES Primary Care Provider [phone] Encounter Details Date Type Department Care Team (Late st Contact Info) Description 07/19/2023 Orders Only External Location [address] [place] [address] Provider, External Social History Tobacco Use Types Packs/Day Years Used Date Smoking Tobacco: Some Days Cigarettes Smokeless Tobacco: Never Alcohol Use Standard Drinks/Week Comments Not Currently 0 (1 standard drink = 0.6 oz pure alcohol) Alcoholic Drinks/day: History of alcohol use PHQ-2 Answer Date Recorded Patient Health Questionnaire-2 Score 0 07/10/2023 Sex and Gender Information Value Date Recorded Sex Assigned at Not on file Legal Sex Male 8:54 PM EDT Gender Identity Not on file Sexual Orientation Not on file documented as of this encounter Plan of Treatment Upcoming Encounters Date Type Department Care Team (Latest Contact Info) Description 11/16/2024 11:50 AM EDT Hospital Encounter [facility] [address] [place] [address] Sergo Bunn MD [address] [address] 11/16/2024 11:50 AM EDT - 11/16/2024 2:20 PM EDT Surgery [facility] [address] [place] [address] Sergo Bunn MD [address] [place] [address] ARTHROPLASTY, HIP, TOTAL, ANTERIOR APPROACH [55095 (CPT )] 12/01/2024 10:20 AM EDT Office Visit [facility] [address] [place] [address] Letha Rivera PA [address] [place] [address] 12/28/2024 11:00 AM EDT Office Visit [facility] [address] [place] [address] Jacek Gregory MD [address] [place] [address] 12/29/2024 11:10 AM EDT Office Visit [facility] [address] [place] [address] Sergo Bunn MD [address] [place] [address] Scheduled Procedures Name Priority Associated Diagnoses Date/Ti me ARTHROPLASTY, HIP, TOTAL, ANTERIOR APPROACH Primary osteoarthritis of right hip 11/16/2024 11:50 AM EDT documented as of this encounter Procedures Procedure Name Priority Date/Time Associated Diagnosis Comments MR NEURO OUTSIDE IMAGES 07/19/2023 8:30 AM EDT documented in this encounter Results * MR NEURO OUTSIDE IMAGES (07/19/2023 8:30 AM EDT) Anatomical Region Laterality Modality Magnetic Resonan ce 07/19/2023 8:30 AM EDT us External Provider IMG MRI PROCEDURES Final Resul t documented in this encounter Visit Diagnoses Not on filedocumented in this encounter Additional Health Concerns Assessment Noted Time A fall risk assessment has been complete d for the patient 07/10/2023 10:23 AM EDT A Body Mass Index follow-up plan has been documented for the patient 07/10/2023 11:53 AM EDT documented as of this encounter Care Teams Organizational Development Consultant Relationship Specialty Start Date End Date Rachael Gregg APRN [address] [place] [address] PCP - General 07/10/23 documented as of this encounter
--- OUTSIDE RECORDS SUMMARY | 2024-10-27 12:04 | XMS_ITS | Clinical Summary ---
Author Organization [facility] Address [address] [place] [address] Care Team Providers Care Boat Driver Name Role Phone CristinoRachael Andrew OATES Primary Care Provider [phone] Allergies Active Allergy Reactions Criticality Noted Date Comments Iodine Rash Low 08/21/2023 Medications albuterol 108 (90 Base) MCG/ACT inhaler Inhale 2 puffs as needed. Active cholecalciferol (Vitamin D-3) 50 MCG (2000 UT) capsule Take 1 capsule (2,000 Units) by mouth 1 (one) time each day. Active tamsulosin (Flomax) 0.4 MG 24 hr capsule Take 1 capsule (0.4 mg) by mouth 1 (one) time each day with dinner. Active rosuvastatin (Crestor) 20 MG tablet Take 1 tablet (20 mg) by mouth nightly. Active irbesartan (Avapro) 150 MG tablet Take 1 tablet (150 mg) by mouth nightly. Active hydroCHLOROthiazid e (HYDRODiuril) 12.5 MG tablet Take 1 tablet (12.5 mg) by mouth daily. Active loratadine (Claritin) 10 MG tablet Take 1 tablet (10 mg) by mouth daily. As needed Active omeprazole (PriLOSEC) [address] capsule Take by mouth 1 (one) time each day. 10/23/19 24 Active DULoxetine (Cymbalta) [address] capsule Take 1 capsule (30 mg) by mouth 1 (one) time each day. 01/13/20 24 Active metoprolol tartrate (Lopressor) 50 MG tablet Take 1 tablet (50 mg) by mouth 2 (two) times a day. Active gabapentin (Neurontin) 400 MG capsule Take 2 capsules (800 mg) by mouth 3 (three) times a day. 02/22/20 Active acetaminophen (Tylenol) 500 MG tablet Take 2 tablets (1,000 mg) by mouth every 6 (six) hours. 02/22/20 Active ibuprofen 400 MG tablet Take 1 tablet (400 mg) by mouth every 8 (eight) hours if needed for mild pain. 02/22/20 Active methocarbamol (Robaxin) 500 MG tablet Take 1 tablet (500 mg) by mouth every 6 (six) hours. 02/22/20 Active naloxone (Narcan) 4 mg/0.1 mL nasal spray 1. Give 1 spray in nostril for no/slow breathing or cannot wake after opioid use 2. Call 911 3. Repeat in other nostril if symptoms continue 1 each 02/22/20 Active Additional Information Patient not taking.Reported on 09/15/2024 ondansetron ODT (Zofran-ODT) 4 MG disintegrating tablet Take 1 tablet (4 mg) by mouth every 6 (six) hours if needed for nausea or vomiting. 20 tablet 02/22/20 Active Additional Information Patient not taking.Reported on 09/15/2024 oxyCODONE (Roxicodone) 10 MG immediate release tablet Take 1 tablet (10 mg) by mouth every 4 (four) hours if needed for moderate pain. 02/22/20 Active polyethylene glycol (Miralax) 17 g packet Take 17 g by mouth 2 (two) times a day. 02/22/20 Active Additional Information Patient not taking.Reported on 09/15/2024 meloxicam (Mobic) 7.5 MG tablet 03/19/20 Active oxyCODONE-acetamin ophen (Percocet) 7.5-325 MG tablet Last taken 06/10/24 03/20/20 Active methocarbamol (Robaxin) 750 MG tablet Take 1 tablet (750 mg) by mouth 4 (four) times a day. 42 tablet 3 04/14/20 Active Jardiance 10 MG Take 1 tablet by mouth. 09/12/19 Active gabapentin (Neurontin) 800 MG tablet Take 1 tablet by mouth 3 times a day. 09/12/19 Active tiZANidine (Zanaflex) 4 MG tablet Take 1 tablet by mouth 3 times a day. 09/12/19 25 Active mupirocin (Bactroban) 2 % ointment Apply to anterior nares BID x 7 days before surgery. 1 g 09/17/19 25 Active Active Problems Problem Noted Date Diagnosed Date Hip pain, right 07/16/2024 Primary osteoarthritis of right hip 07/16/2024 Lumbar radiculopathy 07/16/2024 S/P lumbar fusion 07/16/2024 Cervical stenosis of spinal canal 11/25/2023 Numbness and tingling of hand 08/21/2023 Clumsiness 08/21/2023 Gait disturbance 08/21/2023 Contracture of right elbow 07/30/2023 Cubital tunnel syndrome on right 07/30/2023 Carpal tunnel syndrome of right wrist 07/30/2023 Encounters Date Type Department Care Team Description 10/26/2024 Telephone Medical Office Building [facility] [address], [address] [place] [address] Sergo Bunn MD HCN - Patient Message 09/16/2024 Orders Only Medical Office Building [facility] [address], [address] [place] [address] Sergo Bunn MD 09/15/2024 2:00 PM EDT - 09/15/2024 11:59 PM EDT Hospital Encounter Medical Office Building Radiology [address] [place] [address] Primary osteoarthritis of right hip Discharge Disposition: Home or Self Care 09/15/2024 12:40 PM EDT Office Visit Medical Office Building [facility] [address], [address] [place] [address] Sergo Bunn MD Hip pain, right (Primary Dx); Primary osteoarthritis of right hip 09/15/2024 12:29 PM EDT - 09/15/2024 1:59 PM EDT Hospital Encounter Medical Office Building Radiology [address] [place] [address] Hip pain, right; Primary osteoarthritis of right hip Discharge Disposition: Home or Self Care 09/15/2024 Travel 09/12/2024 Travel 08/30/2024 Travel 08/26/2024 10:00 AM EDT Office Visit [facility] [address] [place] [address] Jennifer Sheehan MD Cubital tunnel syndrome on right (Primary Dx) 08/26/2024 Travel 08/24/2024 12:30 PM EDT Procedure Visit [facility] [address] [place] [address] Edward South MD Clumsiness; Hand pain, right 08/24/2024 10:00 AM EDT Office Visit Medical Office Building [facility] [address] [facility], [address] [place] [address] Jacek Gregory MD Cervical spine pain (Primary Dx) 08/24/2024 9:49 AM EDT - 08/24/2024 11:59 PM EDT Hospital Encounter Medical Office Building Radiology [address] [place] [address] Cervical spine pain Discharge Disposition: Home or Self Care 08/24/2024 Travel 08/23/2024 Travel 07/31/2024 Travel from Last 3 Months Immunizations Immunization Administration Dates Next Due Hep B, adult 03/25/2007 Influenza, injectable, quadrivalent, preservativ e free 02/13/2023 Td (adult), unspecified 01/10/2016 Family History Medical History Relation Name Comments Other cancer Mother Other cancer Other Relation Name Status Comments Mother Other Social History Tobacco Use Types Packs/Day Years [...] on file Sexual Orientation Not on file Last Filed Vital Signs Vital Sign Reading Time Taken Comments Blood Pressure 116/78 09/15/2024 12:44 PM EDT Pulse 66 09/15/2024 12:44 PM EDT Temperature 36.2 C (97.2 F) 06/30/2024 10:15 AM EDT Respiratory Rate 16 08/24/2024 12:19 PM EDT Oxygen Saturation 98% 09/15/2024 12:44 PM EDT Inhaled Oxygen Concentration - - Weight 98.2 kg (216 lb 7.9 oz) 09/15/2024 12:44 PM EDT Height 180.3 cm (5' 11 ) 09/15/2024 12:44 PM EDT Body Mass Index 30.19 09/15/2024 12:44 PM EDT Plan of Treatment Upcoming Encounters Date Type Department Care Team (Latest Contact Info) Description 11/16/2024 11:50 AM EDT Hospital Encounter [facility] Operating Room [address] [place] [address] Sergo Bunn MD [address] [place] [address] 11/16/2024 11:50 AM EDT - 11/16/2024 2:20 PM EDT Surgery [facility] Operating Room [address] [place] [address] Sergo Bunn MD [address] [place] [address] ARTHROPLASTY, HIP, TOTAL, ANTERIOR APPROACH [03597 (CPT )] 12/01/2024 10:20 AM EDT Office Visit Medical Office Building [facility] [address], [address] [place] [address] Letha Rivera PA [address] [place] [address] 12/28/2024 11:00 AM EDT Office Visit Medical Office Building [facility] [address], [address] [place] [address] Jacek Gregory MD [address] [place] [address] 12/29/2024 11:10 AM EDT Office Visit Medical Office Building [facility] [address], [address] [place] [address] Sergo Bunn MD [address] [place] [address] Scheduled Procedures Name Priority Associated Diagnoses Date/Ti me ARTHROPLASTY, HIP, TOTAL, ANTERIOR APPROACH Primary osteoarthritis of right hip 11/16/2024 11:50 AM EDT Health Maintenance Due Date Last Done Comments [facility]-Bone Density Scan 1969 [facility]-HIV Screening 1969 [facility]-Hepatitis C Screening 1969 [facility]-Infant/Child/Adol SDOH Screenings 1969 Diabetes: Dental Exam 09/05/1979 [facility]- SDOH Screenings 09/05/1987 [facility]-Adult SDOH Screenings 09/05/1987 [facility]-Pneumococcal Vaccine: 50+ Years (1 of 2 - PCV) 1988 [facility]-Hepatitis B Vaccines (2 of 3 - 19+ 3-dose series) 04/22/2007 03/25/2007 CT Colonography 2014 Colonoscopy 2014 FIT-DNA 2014 FIT 2014 FOBT 2014 Sigmoidoscopy 2014 [facility]-Colorectal Cancer Screening 2014 [facility]-DTaP,Tdap,and Td Vaccines (1 - Tdap) 01/11/2016 01/10/2016 [facility]-Zoster Vaccines (1 of 2) 09/05/2019 [id number] Vaccine (3 - season) 2023 03/01/2021, 02/09/2021 [facility]-Diabetes: Hemoglobin A1C 05/01/2024 01/31/2024 [facility]-Influenza Vaccine (#1) 2024 02/13/2023 [facility]-Depression Screening 07/16/2025 07/16/2024, 06/2024 [facility]-Obesity Intervention Completed 025, 08/26/2024, 08/24/2024, Additional history exists HPV Vaccines Aged Out No longer eligi ble based on patient's age to complete this topic [facility]-HIB Vaccines Aged Out No longer e ligible based on patient's age to complete this topic [facility]-Hepatitis A Vaccines Aged Out No longer eligible based on patient's age to complete this topic [facility]-IPV Vaccines Aged Out No longer e ligible based on patient's age to complete this topic [facility]-Rotavirus Vaccines Aged Out No lo nger eligible based on patient's age to complete this topic Goals Goal Patient Goal Type Associated Problems Recent Progress Patient-Stated? Author Patient will verbalize understanding of orthotic wear , care and precautions. Occupational Therapy [employer] Implanted Type Area Jewel Flat Surfacer Device Identifier Shelf Expiration Date Model / Serial / Lot Plate Plate Neck Scar Ti 4.0x095 Marilin - Sn/A - [id number] Implanted:Qty: 1 on 02/18/2024 by Jacek Gregory MD at [facility] Scar N/A: Spine Cervical DePuy Spine Sales -[id number] / N/A / Screw Screw Spine Cervical Screw 4.0 Ply 3.5x16 - Sn/A - [id number] Implanted:Qty: 1 on 02/18/2024 by Jacek Gregory MD at [facility] Screw N/A: Spine Cervical DePuy Spine Sales -[id number] / N/A / Screw 4.0 Ply 3.5x18 - Sn/A - [id number] Implanted:Qty: 1 on 02/18/2024 by Jacek Gregory MD at [facility] Screw N/A: Spine Cervical DePuy Spine Sales -[id number] / N/A / Screw 4.0 Ply Cfx 4.5x26 - Sn/A - [id number] Implanted:Qty: 2 on 02/18/2024 by Jacek Gregory MD at [facility] Screw N/A: Spine Cervical DePuy Spine Sales -[id number] / N/A / Set Screw - Sn/A - [id number] Implanted:Qty: 11 on 02/18/2024 by Jacek Gregory MD at [facility] Screw N/A: Spine Cervical DePuy Spine Sales [id number] / N/A / Screw 4.0 Ply 3.5x14 - Sn/A - [id number] Implanted:Qty: 7 on 02/18/2024 by Jacek Gregory MD at [facility] Screw N/A: Spine Cervical DePuy Spine Sales [id number] / N/A / Scar Ti 4.0x110 Marilin - [id number] Implanted:Qty: 1 on 02/18/2024 by Jacek Gregory MD at [facility] N/A: Spine Cervical DePuy Spine Sales [id number] 05/15/2028 [id number] / / [id number] Scar Ti 4.0x110 Marilin - [id number] Implanted:Qty: 1 on 02/18/2024 by Jacek Gregory MD at [facility] N/A: Spine Cervical DePuy Spine Sales [id number] 08/12/2028 [id number] / / [id number] Matrix Fibergraft Bg Lg 12.5cc - [id number] - [id number] Implanted:Qty: 1 on 02/18/2024 by Jacek Gregory MD at [facility] N/A: Spine Cervical DePuy Spine Sales [id number] 06/16/2026 [id number] / [id number] / [id number] Description:Reconstituted wi th blood Explanted Type Area Jewel Flat Surfacer Device Identifier Shelf Expiration Date Model / Serial / Lot Screw 4.0 Ply 3.5x18 - Sn/A - [id number] Explanted:Qty : 1 on 02/18/2024 by Jacek Gregory MD at [facility] N/A: Spine Cervical DePuy Spine Sales [id number] / N/A / Procedures Procedure Name Priority Date/Time Associated Diagnosis Comments XR LUMBAR SPINE 2 OR 3 VIEWS Routine 09/15/2024 2:20 PM EDT Primary osteoarthritis of right hip XR HIP RIGHT 2 OR 3 VIEWS Routine 09/15/2024 12:37 PM EDT Hip pain, right Primary osteoarthritis of right hip EMG / NERVE CONDUCTION STUDY Routine 08/24/2024 12:30 PM EDT Clumsiness Hand pain, right XR CERVICAL SPINE 2 OR 3 VIEWS Routine 08/24/2024 9:55 AM EDT Cervical spine pain HEMOGLOBIN A1C Routine 01/31/2024 2:25 PM EDT Cervical stenosis of spinal canal from Last 3 Months or Most Recently Relevant to Health Maintenance Results * XR Lumbar Spine 2 or [...] PM EDT Severe right hip osteoporosis with geer-ay-ihqy articulation, progressed from 2016. Olqt-zz-lkxwjfsw left hip osteoarthrosis. CRITICAL RESULT: No. COMMUNICATION: [...] to moderate left hip joint space narrowing. Rtmx-qm-mbsdumig osteophytosis of the right hip. Moderate degenerative [...] to moderate left hip joint space narrowing. Kzgv-mc-pcnkmpogkujeehhqhjalm of the right hip. Moderate degenerative changes of the SIjoints bilaterally. Partially imaged lumbar spine hardware. The pubicsymphysis is intact with mild to moderate degenerative changes. Pelvic andgreater trochanter enthesopathy. IMPRESSION: Severe right hip osteoporosis with ygcn-lc-oryl articulation, progressedfrom 2015. Cxoz-af-lrvtzupj left hip osteoarthrosis. CRITICAL RESULT: No. COMMUNICATION: Per this written report. Drafted by Joi Richter MD on 09/15/2024 1:14 PM Final report signed by Joi Richter MD on 09/15/2024 1:16 PM us Sergo Bunn MD IMG XR PROCEDURES Final Resu lt * EMG / NERVE CONDUCTION STUDY (08/24/2024 12:30 PM EDT) Anatomical Region Laterality Modality Other Narrative 08/24/2024 12:30 PM EDT Edward South MD 08/26/2024 11:58 AM EMG / Nerve Conduction Study Date/Time: 08/24/2024 12:30 PM Performed by: Edward South MD Authorized by: Jennifer Sheehan MD Consent: Consent obtained: Written Consent given by: Patient Risks discussed: Bleeding, infection and pain Alternatives discussed: Observation Jennifer Sheehan MD NEUROLOGY ORDERABLES Edit ed Result - Final * HEEL BRUSHER: C-Spine: XR Cervical Spine (AP/Lateral/Odontoid) (08/24/2024 9:55 AM EDT) Anatomical Region Laterality Modality Spine, C-spine Digital Radiogra phy Impressions 08/24/2024 10:11 AM EDT Redemonstration of post surgical changes throughout the cervical spine as above with no definite evidence of hardware loosening or failure. Degenerative changes in the cervical spine with slight retrolisthesis of C3 on C4. CRITICAL RESULT: No. COMMUNICATION: Per this written report. By electronically signing this report, I, the attending physician, attest that I have personally reviewed the images/data for the above examination(s) and agree with the final edited report. Drafted by Ashley Yin MD on 08/24/2024 10:00 AM Final report signed by Christiano Aponte on 08/24/2024 10:11 AM Narrative 08/24/2024 10:11 AM EDT CLINICAL INDICATION: NECK PAIN TECHNIQUE: XR CERVICAL SPINE 2 OR 3 VIEWS COMPARISON: 05/22/2024 FINDINGS: Redemonstration of posterior spinal fusion spanning C2-T1 and anterior spinal fusion spanning C4-C6 with disc spacers. No evidence of hardware loosening or failure. Straightening of the cervical spine. No prevertebral soft tissue swelling. Punctate densities are again seen in the posterior subcutaneous tissues. No new vertebral body height loss. Slight retrolisthesis of C3 on C4, unchanged from prior. Disc space narrowing and osteophyte formation noted at C3-C4 and C6-C7. Procedure Note Christiano Aponte MD - 08/24/2024 CLINICAL INDICATION: NECK PAIN TECHNIQUE: XR CERVICAL SPINE 2 OR 3 VIEWS COMPARISON: 05/22/2024 FINDINGS: Redemonstration of posterior spinal fusion spanning C2-T1 and anteriorspinal fusion spanning C4-C6 with disc spacers. No evidence of hardwareloosening or failure. Straightening of the cervical spine. No prevertebralsoft tissue swelling. Punctate densities are again seen in the posteriorsubcutaneous tissues. No new vertebral body height loss. Slightretrolisthesis of C3 on C4, unchanged from prior. Disc space narrowing andosteophyte formation noted at C3-C4 and C6-C7. IMPRESSION: Redemonstration of post surgical changes throughout the cervical spine asabove with no definite evidence of hardware loosening or failure. Degenerative changes in the cervical spine with slight retrolisthesis ofC3 on C4. CRITICAL RESULT: No. COMMUNICATION: Per this written report. By electronically signing this report, I, the attending physician, attestthat I have personally reviewed the images/data for the aboveexamination(s) and agree with the final edited report. Drafted by Ashley Yin MD on 08/24/2024 10:00 AM Final report signed by Christiano Aponte on 08/24/2024 10:11 AM us Jcaek Gregory MD IMG XR PROCEDURES Final Resu lt * (ABNORMAL) Hemoglobin A1c (01/31/2024 2:25 PM EDT) Hemoglobin A1c 7.6(H) <5.7 % 01/31/2024 6:15 PM EDT [facility] Blood Venous blood specimen / Unknown Venipuncture / Unknown 01/31/2024 2:25 PM EDT 01/31/2024 2:26 PM EDT Narrative [facility] - 01/31/2024 6:15 PM EDT HA1C Interpretive Data: Diagnosis of Diabetes: Diabetic > or = 6.5% Pre-diabetic 5.7 to 6.4% Non-diabetic < or = 5.6% Glycemic Targets for Type I and Type II Diabetics: Non- Adults <7.0% Adults <6.0% Children and Adolescents <7.5% Source: [place] Diabetes Association. Standards of medical care in diabetes,2017. Diabetes Care.2017:40 (suppl 1):S1-S135. HbA1c assay performed by an ion-exchange chromatography method that is certified traceable to the DCCT. Jacek Gregory MD LAB BLOOD ORDERABLES Final R esult [facility] [address] [place] [address] from Last 3 Months or Most Recently Relevant to Health Maintenance Insurance MEDICAID Advance Directives * Full Code (Latest Code Status on File) Date Activated Date Inactivated Comments 02/18/2024 12:14 PM 02/22/2024 3:05 PM Question Answer Comments Patient has decision-making capacity? Yes Care Teams Boat Driver Relationship Specialty Start Date End Date Rachael Gregg APRN [address] [place] [address] PCP - General 07/10/23
--- OUTSIDE RECORDS SUMMARY | 2024-10-27 12:04 | XMS_ITS | Encounter Summary ---
Author Organization Healthcare Address [address] [place] [address] Care Team Providers Care Maintenance Manager Name Role Phone Pcp, No Primary Care Provider Rachael Urrutia APRN Primary Care Provider [phone] Encounter Details Date Type Department Care Team (Late st Contact Info) Description 03/11/2023 Orders Only External Location [address] [place] [address] Provider, External Social History Tobacco Use Types Packs/Day Years Used Date Smoking Tobacco: Never Alcohol Use Standard Drinks/Week Comments Not Currently 0 (1 standard drink = 0.6 oz pure alcohol) Alcoholic Drinks/day: History of alcohol use Sex and Gender Information Value Date Recorded Sex Assigned at Not on file Legal Sex Male 8:54 PM EDT Gender Identity Not on file Sexual Orientation Not on file documented as of this encounter Plan of Treatment Upcoming Encounters Date Type Department Care Team (Latest Contact Info) Description 11/16/2024 11:50 AM EDT Hospital Encounter [facility] Operating Room [address] [place] [id number] Sergo Bunn MD [address] [place] [address] 11/16/2024 11:50 AM EDT - 11/16/2024 2:20 PM EDT Surgery [facility] Operating Room [address] [place] [address] Sergo Bunn MD [address] [place] [address] ARTHROPLASTY, HIP, TOTAL, ANTERIOR APPROACH [46187 (CPT )] 12/01/2024 10:20 AM EDT Office Visit Medical Office Building [facility] [address], [address] [place] [address] Letha Rivera PA [address] [place] [address] 12/28/2024 11:00 AM EDT Office Visit Medical Office Building [facility] [address], [address] [place] [address] Jacek Gregory MD [address] [place] [address] 12/29/2024 11:10 AM EDT Office Visit Medical Office Building [facility] [address], [address] [place] [address] Sergo Bunn MD [address] [place] [address] Scheduled Procedures Name Priority Associated Diagnoses Date/Ti me ARTHROPLASTY, HIP, TOTAL, ANTERIOR APPROACH Primary osteoarthritis of right hip 11/16/2024 11:50 AM EDT documented as of this encounter Procedures Procedure Name Priority Date/Time Associated Diagnosis Comments MR NEURO OUTSIDE IMAGES 03/11/2023 11:44 AM EST documented in this encounter Results * MR NEURO OUTSIDE IMAGES (03/11/2023 11:44 AM EST) Anatomical Region Laterality Modality Magnetic Resonan ce 03/11/2023 11:4 4 AM EST us External Provider IMG MRI PROCEDURES Final Resul t documented in this encounter Visit Diagnoses Not on filedocumented in this encounter Care Teams Maintenance Manager Relationship Specialty Start Date End Date Pcp, Lauren [address] [place] [address] PCP - General Family Medicine 06/12/23 07/09/23 Rachael Gregg APRN [address] [place] [address] PCP - General 07/10/23 documented as of this encounter
--- OUTSIDE RECORDS SUMMARY | 2024-10-27 12:04 | XMS_ITS | Data Portability ---
Author Organization [facility], [facility] Address [address] [place] [address] Care Team Providers Care Product Marketing Intern Name Role Phone Unavailable Primary Care Provider Unavailabl e Assessment Encounter Date Assessment Date Assessment LastModified by Organization Details LastModified Time 01/20/2024 01/20/2024 Interval history : Mr. Chan is a 53-year-old gentleman for follow-up. Despite his age he has multiple pain issues. He has back pain as well as right hip pain that refers into the groin. His primary complaint has been of neck pain and there are potentially plans for a posterior cervical fusion of C2-4 on 02/18/2024 at . He has had x-rays of his right hip that demonstrate arthritis. He may be injections for this at some point in the future. For his multiple complaints we do provide him with gabapentin as well as Percocet which she typically finds beneficial. We have discussed the postop pain medication protocol today. He understands he needs to call the office within a couple days after receiving medication after surgery and let us know what he was given. He also understands that he needs to stop the medication we provide into his complete his postop course and then return to the medication we give him. History: Mr. Chan has multiple chronic pain complaints. He has chronic neck pain with symptoms that can extend into the upper extremities with history of cervical fusion. He also has chronic low back pain with radiating symptoms into the lower extremities with history of lumbar fusion. Surgical history: He is status post ACDF surgery levels C4-[address] Hoffmann in March 2019. He is status post L3-5 posterior lumbar fusion surgery with Dr. Whitley on 07/30/2022. Imaging: Lumbar MRI 07/12/2022: Degenerative spondylolisthesis of L3-4. Significant changes and degenerative disc disease of L1-2, L3-4 and L4-5 and L5-S1. Neuroforaminal compromise particularly evident on the right at L3-4 and L4-5. And, right paracentral disc extrusion extending superiorly from the L3-4 disc space. MRI right hip dated 04/13/2020: Impression: 1. There is advanced arthritic changes of the right hip with acute bone edema throughout the superior acetabulum. There is chronic fragmentation of the acetabulum, which may be from prior fracture and/or arthritic. Or relatively milder, but significant arthritic changes associated with the left hip articulation. 2. There are degenerative disc disease related changes within the partially visualized lumbar spine with acute bone edema noted at the lumbosacral junction. MRI cervical spine dated 07/12/2022: Anterior interbody fusions at C3-4 and C5-6. Diffuse disc bulges with endplate hypertrophy most evident at C3-4 and C6-7 levels. High-grade bilateral neuroforaminal compromise at these levels. MRI thoracic spine dated 07/12/2022: There is evidence of moderate diffuse disc bulge at T7-8 level. A large focal left paracentral disc protrusion is present. There is moderate to high-grade compromise of the left side of the spinal canal. Similarly there is a left paracentral disc protrusion present at T9-10 level. Small right paracentral disc protrusion is present at this level. Medications/Bobby/ UDS: The patient is currently prescribed Percocet and gabapentin which he tolerates. The updated Bobby report is reviewed today and is appropriate. The urine drug screen obtained 09/24/2023 was appropriately positive for percocet and gabapentin, inappropriately positive for tramadol. A urine drug screen was obtained today 01/20/2020 form will be sent for qualitative and quantitative analysis. Patient reports last dose of Percocet and gabapentin was earlier this morning. Patient's overall risk level will remain the same. The patient's ORT is 0 by self reporting. I would consider the patient to be Moderate risk based on these new results. In response to the patient's risk level and urine confirmation I plan to not change the patient's opioid prescription. By history, the patient is unable to tolerate steroid or NSAID medications. Plan: Mr. Chan is a 53-year-old gentleman with multiple pain complaints that are stable on a regimen of Percocet 7.5/325 3 times daily as needed in addition to gabapentin 800 mg 3 times daily. We will continue his regimen today with new prescriptions. The patient will follow-up in office in 60 days for further evaluation and treatment planning. Again we have discussed the postop pain protocol. [email or web address] Not available 01/20/2024 10:33:03 03/18/2024 03/18/2024 Interval history : Mr. Chan is a 53-year-old gentleman for follow-up with fairly significant increased posterior neck pain that refers into the periscapular space and shoulders. Also refers into the occiput resulting in headaches. He is just 1 day shy of 1 month status post multilevel posterior cervical fusion on 02/18/2024. He is in a Qawalangin J collar today. What levels were addressed is not clear but he reports that they fuse down to T2 of his thoracic spine. He also has low back pain and radicular symptoms in the lower extremities. For his complaints we provide him with gabapentin and Percocet which she typically finds beneficial. He denies any adverse side effects with the current regimen. History: Mr. Chan has multiple chronic pain complaints. He has chronic neck pain with symptoms that can extend into the upper extremities with history of cervical fusion. He also has chronic low back pain with radiating symptoms into the lower extremities with history of lumbar fusion. Surgical history: He is status post ACDF surgery levels C4-[address] Hoffmann in March 2019. He is status post L3-5 posterior lumbar fusion surgery with Dr. Whitley on 07/30/2022. Imaging: Lumbar MRI 07/12/2022: Degenerative spondylolisthesis of L3-4. Significant changes and degenerative disc disease of L1-2, L3-4 and L4-5 and L5-S1. Neuroforaminal compromise particularly evident on the right at L3-4 and L4-5. And, right paracentral disc extrusion extending superiorly from the L3-4 disc space. MRI right hip dated 04/13/2020: Impression: 1. There is advanced arthritic changes of the right hip with acute bone edema throughout the superior acetabulum. There is chronic fragmentation of the acetabulum, which may be from prior fracture and/or arthritic. Or relatively milder, but significant arthritic changes associated with the left hip articulation. 2. There are degenerative disc disease related changes within the partially visualized lumbar spine with acute bone edema noted at the lumbosacral junction. MRI cervical spine dated 07/12/2022: Anterior interbody fusions at C3-4 and C5-6. Diffuse disc bulges with endplate hypertrophy most evident at C3-4 and C6-7 levels. High-grade bilateral neuroforaminal compromise at these levels. MRI thoracic spine dated 07/12/2022: There is evidence of moderate diffuse disc bulge at T7-8 level. A large focal left paracentral disc protrusion is present. There is moderate to high-grade compromise of the left side of the spinal canal. Similarly there is a left paracentral disc protrusion present at T9-10 level. Small right paracentral disc protrusion is present at this level. Medications/Bobby/ UDS: The patient is currently prescribed Percocet and gabapentin which he tolerates. The updated Bobby report is reviewed today and is appropriate. The urine drug screen obtained 01/20/2024 was appropriately positive for oxycodone, metabolites and gabapentin as expected. No urine drug screen was obtained today 03/18/2024. Patient's overall risk level will remain the same. The patient's ORT is 0 by self reporting. I would consider the patient to be Moderate risk based on these new results. In response to the patient's risk level and urine confirmation I plan to not change the patient's opioid prescription. By history, the patient is unable to tolerate steroid or NSAID medications. Plan: Mr. Chan is a 53-year-old gentleman with historically multiple pain generators but reports fairly significant increase in neck pain and headaches after a posterior cervical fusion a month ago. He is in a Qawalangin J collar today. Will continue Percocet 7.5/325 3 times daily as needed and gabapentin 800 mg 3 times daily. He will follow-up in office in 60 days for further evaluation and treatment planning or sooner if needed. [email or web address] Not available 03/18/2024 11:24:54 05/20/2024 05/20/2024 Interval history : Mr. Chan is a 53-year-old gentleman for follow-up. He has multiple pain complaints however more recently the primary complaint has been of neck pain with referral into the right dominant upper extremity. He underwent a fairly extensive posterior cervical fusion 3 months ago on 02/18/2024 at . What levels were addressed is not clear but he was fused down to T2. He is out of his Qawalangin J collar today and doing well. Continues to have some neuropathic pain in the right hand. He has been referred to a hand surgeon and from what he describes to me it sounds as though there may be vascular surgery involved in the near future for his right hand. He continues to have neuropathic pain roughly a C8 dermatome. He also has right hip and lower extremity pain related to torn musculature sometime ago. There may be psoas involvement as well. He has also had thoracic and lumbar spinal pain has undergone lumbar fusion with Dr. Mcnair in 2022. For his multiple complaints we provide him with Percocet as well as gabapentin. He finds this regimen beneficial would like to continue this. History: Mr. Chan has multiple chronic pain complaints. He has chronic neck pain with symptoms that can extend into the upper extremities with history of cervical fusion. He also has chronic low back pain with radiating symptoms into the lower extremities with history of lumbar fusion. Surgical history: He is status post ACDF surgery levels C4-[address] Hoffmann in March 2019. He is status post L3-5 posterior lumbar fusion surgery with Dr. Whitley on 07/30/2022. Imaging: Lumbar MRI 07/12/2022: Degenerative spondylolisthesis of L3-4. Significant changes and degenerative disc disease of L1-2, L3-4 and L4-5 and L5-S1. Neuroforaminal compromise particularly evident on the right at L3-4 and L4-5. And, right paracentral disc extrusion extending superiorly from the L3-4 disc space. MRI right hip dated 04/13/2020: Impression: 1. There is advanced arthritic changes of the right hip with acute bone edema throughout the superior acetabulum. There is chronic fragmentation of the acetabulum, which may be from prior fracture and/or arthritic. Or relatively milder, but significant arthritic changes associated with the left hip articulation. 2. There are degenerative disc disease related changes within the partially visualized lumbar spine with acute bone edema noted at the lumbosacral junction. MRI cervical spine dated 07/12/2022: Anterior interbody fusions at C3-4 and C5-6. Diffuse disc bulges with endplate hypertrophy most evident at C3-4 and C6-7 levels. High-grade bilateral neuroforaminal compromise at these levels. MRI thoracic spine dated 07/12/2022: There is evidence of moderate diffuse disc bulge at T7-8 level. A large focal left paracentral disc protrusion is present. There is moderate to high-grade compromise of the left side of the spinal canal. Similarly there is a left paracentral disc protrusion present at T9-10 level. Small right paracentral disc protrusion is present at this level. Medications/Bobby/ UDS: The patient is currently prescribed Percocet and gabapentin which he tolerates. The updated Bobby report is reviewed today and is appropriate. The urine drug screen obtained 01/20/2024 was appropriately positive for oxycodone, metabolites and gabapentin as expected. A urine drug screen was obtained today 05/20/2024 and will be sent for qualitative and quantitative analysis. The patient reports last dose of Percocet and gabapentin was this morning. Patient's overall risk level will remain the same. The patient's ORT is 0 by self reporting. I would consider the patient to be Moderate risk based on these new results. In response to the patient's risk level and urine confirmation I plan to not change the patient's opioid prescription. By history, the patient is unable to tolerate steroid or NSAID medications. Plan: Mr. Chan is a 53-year-old gentleman with multiple pain generators and continues to have escalating neuropathic pain in his right dominant hand. There is potentially plan for surgical intervention in the near future. It is not clear what the surgical plan is and it sounds vascular from the description that the patient gives me. We have discussed postop pain medication protocol today. We will continue his Percocet 7.5/325 3 times daily as needed along with gabapentin 800 mg 3 times daily. He will follow-up in 60 days for further evaluation and treatment planning. [email or web address] Not available 05/20/2024 11:31:30 08/12/2024 08/12/2024 Interval history : Mr. Chan is a 53-year-old gentleman with multiple pain complaints. Historically we have seen him for neck and low back pain with radicular symptoms in bilateral lower extremities. He has had a fairly significant lumbar fusion with Dr. Whitley cervical fusion with her with the extension down to T2. He continues to have radicular symptoms in his right dominant hand that follows a C8 dermatome. He has been referred to a hand specialist I believe Dr. Pugh. He has had an ulnar transposition on the left upper extremity and there may be plans for 1 on the right pending findings of the EMG and nerve conduction study. His primary complaint today is of right hip pain with referral into the groin. He has been referred to orthopedics for this. He reports the pain is so significant at times he has nausea. He has asked for medication for this and I will provide him with Zofran. He is also found tizanidine beneficial for his groin pain particularly at night as he has fairly significant spasms. This has been provided by his PCP and asked that we take this over which I am happy to do today. Additionally would provide him with Percocet as well as gabapentin which he typically finds beneficial will like to continue. History: Mr. Chan has multiple chronic pain complaints. He has chronic neck pain with symptoms that can extend into the upper extremities with history of cervical fusion. He also has chronic low back pain with radiating symptoms into the lower extremities with history of lumbar fusion. Surgical history: He is status post posterior cervical fusion down to T2 with Dr. Kingston in February 2024. He is status post ACDF surgery levels C4-[address] Hoffmann in March 2019. He is status post L3-5 posterior lumbar fusion surgery with Dr. Whitley on 07/30/2022. Imaging: Lumbar MRI 07/12/2022: Degenerative spondylolisthesis of L3-4. Significant changes and degenerative disc disease of L1-2, L3-4 and L4-5 and L5-S1. Neuroforaminal compromise particularly evident on the right at L3-4 and L4-5. And, right paracentral disc extrusion extending superiorly from the L3-4 disc space. MRI right hip dated 04/13/2020: Impression: 1. There is advanced arthritic changes of the right hip with acute bone edema throughout the superior acetabulum. There is chronic fragmentation of the acetabulum, which may be from prior fracture and/or arthritic. Or relatively milder, but significant arthritic changes associated with the left hip articulation. 2. There are degenerative disc disease related changes within the partially visualized lumbar spine with acute bone edema noted at the lumbosacral junction. MRI cervical spine dated 07/12/2022: Anterior interbody fusions at C3-4 and C5-6. Diffuse disc bulges with endplate hypertrophy most evident at C3-4 and C6-7 levels. High-grade bilateral neuroforaminal compromise at these levels. MRI thoracic spine dated 07/12/2022: There is evidence of moderate diffuse disc bulge at T7-8 level. A large focal left paracentral disc protrusion is present. There is moderate to high-grade compromise of the left side of the spinal canal. Similarly there is a left paracentral disc protrusion present at T9-10 level. Small right paracentral disc protrusion is present at this level. Medications/Bobby/ UDS: The patient is currently prescribed Percocet and gabapentin which he tolerates. The updated Bobby report is reviewed today and is appropriate. The urine drug screen obtained 05/20/2024 was appropriately positive for oxycodone, metabolites and gabapentin as expected. No urine drug screen was obtained today 08/12/2024. Patient's overall risk level will remain the same. The patient's ORT is 0 by self reporting. I would consider the patient to be Moderate risk based on these new results. In response to the patient's risk level and urine confirmation I plan to not change the patient's opioid prescription. By history, the patient is unable to tolerate steroid or NSAID medications. Plan: Mr. Chan is a 53-year-old gentleman with a primary complaint of right hip pain and groin pain likely related to osteoarthritis. He has been referred to orthopedic surgeon. He reports the pain is so significant that this causes nausea. I will provide Zofran today. We will not escalate the Percocet at this time and it will remain at 7.5/325 3 times daily as needed. Will continue gabapentin 800 mg 3 times daily. I will add Zofran as noted above as well as tizanidine for his myofascial component. I will provide prescription for tizanidine 4 mg 3 times daily as needed. He will follow-up in 60 days or sooner if needed for further evaluation and treatment planning. [email or web address] Not available 08/12/2024 11:10:16 10/08/2024 10/08/2024 Interval history : Mr. Chan is a 54-year-old gentleman we see for follow-up today with increased right hip and groin pain related to fairly significant osteoarthritis. There are potentially plans for right total hip arthroplasty despite his age on 11/16/[address] Bunn at . Again we have discussed postop pain medication protocol. He also has multiple other complaints including knees but primary issue historically has been of neck and back with radicular symptoms. We provide him with a number of medications including Percocet, gabapentin as well as tizanidine. He can have some nausea occasionally and we provide him with Zofran as well to use as needed. He would like to continue this regimen. Aside from increasing right hip pain and groin pain related to osteoarthritis and the plan for surgery he denies any changes in his health since we have seen him last. History: Mr. Chan has multiple chronic pain complaints. He has chronic neck pain with symptoms that can extend into the upper extremities with history of cervical fusion. He also has chronic low back pain with radiating symptoms into the lower extremities with history of lumbar fusion. Surgical history: He is status post posterior cervical fusion down to T2 with Dr. Whitley in February 2024. He is status post ACDF surgery levels C4-[address] Hoffmann in March 2019. He is status post L3-5 posterior lumbar fusion surgery with Dr. Whitley on 07/30/2022. He is status post a left ulnar transposition I believe with Dr. Pugh Imaging: Lumbar MRI 07/12/2022: Degenerative spondylolisthesis of L3-4. Significant changes and degenerative disc disease of L1-2, L3-4 and L4-5 and L5-S1. Neuroforaminal compromise particularly evident on the right at L3-4 and L4-5. And, right paracentral disc extrusion extending superiorly from the L3-4 disc space. MRI right hip dated 04/13/2020: Impression: 1. There is advanced arthritic changes of the right hip with acute bone edema throughout the superior acetabulum. There is chronic fragmentation of the acetabulum, which may be from prior fracture and/or arthritic. Or relatively milder, but significant arthritic changes associated with the left hip articulation. 2. There are degenerative disc disease related changes within the partially visualized lumbar spine with acute bone edema noted at the lumbosacral junction. MRI cervical spine dated 07/12/2022: Anterior interbody fusions at C3-4 and C5-6. Diffuse disc bulges with endplate hypertrophy most evident at C3-4 and C6-7 levels. High-grade bilateral neuroforaminal compromise at these levels. MRI thoracic spine dated 07/12/2022: There is evidence of moderate diffuse disc bulge at T7-8 level. A large focal left paracentral disc protrusion is present. There is moderate to high-grade compromise of the left side of the spinal canal. Similarly there is a left paracentral disc protrusion present at T9-10 level. Small right paracentral disc protrusion is present at this level. Medications/Bobby/ UDS: The patient is currently prescribed Percocet and gabapentin which he tolerates. The updated Bobby report is reviewed today and is appropriate. The urine drug screen obtained 05/20/2024 was appropriately positive for oxycodone, metabolites and gabapentin as expected. A urine drug screen was obtained today 10/08/2024 and will be sent for qualitative and quantitative analysis. The patient reports last dose of Percocet and gabapentin was earlier this morning. Patient's overall risk level will remain the same. The patient's ORT is 0 by self reporting. I would consider the patient to be Moderate risk based on these new results. In response to the patient's risk level and urine confirmation I plan to not change the patient's opioid prescription. By history, the patient is unable to tolerate steroid or NSAID medications. Plan: Mr. Chan is a 54-year-old gentleman with increasing right hip and groin pain related to osteoarthritis of his right hip. There are plans for a total hip arthroplasty on 11/16/2024. We have again discussed the postop pain medication protocol which she is aware of. For his multiple other complaints we will continue Percocet 7.5/325 3 times daily as needed, gabapentin 800 mg 3 times daily as well as tizanidine 4 mg 3 times daily as needed. Again he does have some nausea we will continue Zofran as needed as well. He will follow-up in 60 days for further evaluation and treatment planning. [email or web address] Not available 10/08/2024 11:26:12 Plan of Treatment Reminders Order Date Submit Date Provider Last Modified By Organization Details Last Modified Time Details Appointments FOLLOW UP 15 2024 11:15A M CANDELARIA VÁSQUEZ , [employer] SPECULATOR Not available Not available Not available Lab drug screen, urine - Qualitati ve LCMS Screen Panel 2024 [facility], [facility], [address] [place] [address], [id number], 10/13/2024 11:25:06 drug screen, urine - Qualitati ve LCMS Screen Panel 2024 [facility], [facility], [address] [place] [address], [id number], 05/25/2024 10:44:03 drug screen, urine - Qualitati ve LCMS Screen Panel 2023 024 [facility], [facility], [address] [place] [address], [id number], 01/23/2024 10:03:15 Referral None recorded. Procedures remote therapeut ic monitorin g to monitor musculosk eletal system (PROC) - Patient prescribe d RTM (Remote Therapeut ic Monitorin g) to prevent further functiona l decline and monitor treatment effective ness. Patient will complete medicatio n tracking and physical therapy exercises as instructe d. Monitorin g to take place over the next 12 months using the CP&S Domingo to also include functiona l assessmen ts as well as daily pain scores. Patient consent obtained and device provided. 2023 [email or web address] Not available 01/21/2024 08:11:55 Surgeries None recorded. Imaging None recorded. Medication Orders gabapenti n 800 mg tablet 2024 [facility], [address] [place] [address], [id number], 10/08/2024 11:37:54 ondansetr on 8 mg disintegr ating tablet 2024 [facility], [address] [place] [address], [id number], 10/08/2024 11:37:53 tizanidin e 4 mg tablet 2024 025 [facility], [address] [place] [address], KAUSHAL Diaz, [id number], 10/08/2024 11:37:53 Percocet 7.5 mg-325 mg tablet 2024 025 [facility], [address] [place] [address], KAUSHAL Diaz, [id number], 10/09/2024 16:45:22 Percocet 7.5 mg-325 mg tablet 2024 025 [facility], [address] [place] [address], KAUSHAL Diaz, [id number], 10/08/2024 11:44:31 gabapenti n 800 mg tablet 2024 025 [facility], [address] [place] [address], KAUSHAL Diaz, [id number], 08/12/2024 11:13:09 ondansetr on 8 mg disintegr ating tablet 2024 025 [facility], [address] [place] [address], KAUSHAL Diaz, [id number], 08/12/2024 11:12:55 tizanidin e 4 mg tablet 2024 025 [facility], [address] [place] [address], KAUSHAL Diaz, [id number], 08/12/2024 11:12:52 Percocet 7.5 mg-325 mg tablet 2024 025 [facility], [address] [place] [address], KAUSHAL Diaz, [id number], 08/14/2024 13:08:13 Percocet 7.5 mg-325 mg tablet 2024 025 [facility], [address] [place] [address] S, KAUSHAL Diaz, [id number], 09/14/2024 14:57:30 gabapenti n 800 mg tablet 2024 025 [facility], [address] [place] [address] S, KAUSHAL Diaz, [id number], 05/20/2024 11:29:32 Percocet 7.5 mg-325 mg tablet 2024 [facility], [address] [place] [address] S, KAUSHAL Diaz, [id number], 05/20/2024 12:34:30 Percocet 7.5 mg-325 mg tablet 2024 025 [facility], [address] [place] [address] S, KAUSHAL Diaz, [id number], 05/20/2024 12:34:32 gabapenti n 800 mg tablet [address] [facility], [address] [place] [address] S, KAUSHAL Diaz, [id number], 03/19/2024 07:32:50 Percocet 7.5 mg-325 mg tablet 2023 024 [facility], [address] [place] [address] S, KAUSHAL Diaz, [id number], 03/18/2024 13:35:33 Percocet 7.5 mg-325 mg tablet 2023 024 [facility], [address] [place] [address] S, KAUSHAL Diaz, [id number], 03/18/2024 13:35:34 gabapenti n 800 mg tablet 2023 [facility], [address] [place] [address] [place], [id number], 01/20/2024 10:34:36 Percocet 7.5 mg-325 mg tablet 2023 [facility], [address] [place] [address], KAUSHAL Diaz, [id number], 01/20/2024 10:36:28 Percocet 7.5 mg-325 mg tablet 2023 024 [facility], [facility] [address], [id number], 01/20/2024 10:36:32 Patient TargetsNo targets recorded. Patient Instructions Encounter Date Encounter Id Patient Instructions Last Modified By Organization Details Last Modified Time 01/20/2024 [id number] behavioral healt h screen* dadricho Not available 01/22/2024 08:42:46 05/20/2024 [id number] advance directives: care instructions [email or web address] Not available 05/20/2024 12:44:44 depression and chronic disease: care instructions [email or web address] Not available 05/20/2024 12:44:44 safe use of opioid pain medicine: care instructions [email or web address] Not available 05/20/2024 12:44:44 Learning About Benefits of Quitting Smoking [email or web address] Not available 05/20/2024 12:44:44 08/12/2024 [id number] advance directives: care instructions [email or web address] Not available 08/13/2024 07:38:07 depression and chronic disease: care instructions [email or web address] Not available 08/13/2024 07:38:07 safe use of opioid pain medicine: care instructions [email or web address] Not available 08/13/2024 07:38:07 Learning About Benefits of Quitting Smoking Not available 08/13/2024 07:38:07 Reason for Referral None Reported. Results Created Date Observation Date Name Description Value Unit Range Abnormal Flag Note LastModifiedBy Organization Detail LastModifiedTime Result Notes None recorded. Problems Name Problem SNOMED Code Status Onset Date Resolution Date Notes Provider Name and Address Organization Details Recorded Time Lumbar spondylos is 956328232 Active 2023 lilibeth fonseca null, [place] - [facility] 4 13:40:34 Chronic pain 77964367 Active 2023 Katelynn Hoffmann null, [place] - [facility] 4 11:38:23 Cervical radiculop athy 70685160 Active [address] [place] [address], [id number] , [place] - [facility] 4 12:48:25 Nausea 398588335 Active 2024 Zelda salinas null, [place] - [facility] 5 10:55:51 Myofascia l pain 049203542 Active 2024 Zelda salinas null, [place] - [facility] 5 10:55:51 Postopera tive care Completed 201903/21/2020 Gayle Rabago null, [place] - [facility] 0 15:02:31 Neck pain 62495825 Active 2019 Gayle Rabago null, [place] - [facility] 0 15:02:48 Overweigh t 736134077 Active 2022 denis za null, [place] - [facility] 3 13:36:34 Spinal stenosis in cervical region 61767683 Active 2022 denis mendenhall null, [place] - [facility] 3 13:36:41 Osteoarth ritis of right hip joint 61740945929 9107 Active 2022 denis mendenhall null, [place] - [facility] 3 13:36:41 Lumbar radiculop athy 204294955 Active 2022 denis mendenhall null, [place] - [facility] 3 13:36:41 Cervical spondylos is 000179444 Active 2022 KAUSHAL christopher [facility] 3 13:36:41 Cervical radiculit is 74381180 Active 2022 KAUSHAL christopher [facility] 3 13:36:41 Problem Notes None recorded. Procedures Surgical History Date Name Laterality Status Provider Name and Address Organization Details Recorded Time 3 lumbar spinal fusion completed Trisha Sasha [facility] 09/25/2022 08:38:25 cervical laminectomy completed Gayle Rabago [facility] 03/21/2020 15:03:44 Knee Surgery completed judy saeed [facility] 05/18/2020 09:13:36 Carpal Tunnel Release completed judy saeed [facility] 05/18/2020 09:13:36 Imaging Results None recorded. Procedure Notes None recorded. Medical Equipment None Reported. Allergies Allergen ID Allergen Name Allergen Category Reaction Reaction Severity Criticality Documentation Date Start Date Code Code System Note Provider Name and Address Organization Details Recorded Time 450702 Product containin g glucocort icoid (product) medicatio n Not available Not available Not available 03/21/2020 02904 6006 SNOMED KAUSHAL Mota [facility] 0 14:58:46 219537 iodine medicatio n rash Not available Not available 05/18/2020 5933 RxNorm KAUSHAL ji [facility] 1 09:13:08 Medications Name Sig Start Date Stop Date Status Note LastModified by Organization Details LastModified Time hello heart kit 01/26 completed Not Available Not Available Not Available losartan 50 mg tablet 05/28 completed Not Available Not Available Not Available cyclobenzap rine 10 mg tablet PCP PRN 01/31 completed Not Available Not Available Not Available atorvastati n 40 mg tablet Take by oral route for 60 days. active Not Available Not Available No t Available methocarbam ol 500 mg tablet Take by oral route for 8 days. active Not Available Not Available No t Available metformin 500 mg tablet 01/31 completed Not Available Not Available Not Available clonidine HCl 0.1 mg tablet 01/31 completed Not Available Not Available Not Available acetaminoph en 325 mg tablet 01/31 completed Not Available Not Available Not Available prednisone 10 mg tablet 11/22 completed Not Available Not Available Not Available gabapentin 600 mg tablet Take 1 tablet 3 times a day by oral route as needed for 30 days. 07/25 completed Not Available Not Available Not Available lidocaine 4 % topical patch Apply by topical route for 30 days. active Not Available Not Available No t Available azithromyci n 250 mg tablet 11/29 completed Not Available Not Available Not Available bethanechol chloride 10 mg tablet Take by oral route. active Not Available Not Available No t Available tizanidine 4 mg tablet Take 1 tablet 3 times a day by oral route for 30 days. 2024 active Not Available Not Available Not Avai lable metoprolol succinate ER 50 mg tablet,exte nded release 24 hr 01/26 completed Not Available Not Available Not Available hydrocodone 5 mg-acetamin ophen 325 mg tablet 03/21 completed Not Available Not Available Not Available ondansetron HCl 8 mg tablet Take by oral route for 7 days. active Not Available Not Available No t Available meloxicam 15 mg tablet 01/31 completed Not Available Not Available Not Available FreeStyle Lancets 28 gauge 05/28 completed Not Available Not Available Not Available Milk of Magnesia 400 mg/5 mL oral suspension Take by oral route for 22 days. active Not Available Not Available No t Available metronidazo le 500 mg tablet 11/29 completed Not Available Not Available Not Available amlodipine 5 mg tablet 11/22 completed Not Available Not Available Not Available ciprofloxac in 500 mg tablet 12/09 completed Not Available Not Available Not Available tramadol 50 mg tablet Take by oral route for 14 days. active Not Available Not Available No t Available acetaminoph en 500 mg tablet Take by oral route for 25 days. active Not Available Not Available No t Available ondansetron 8 mg disintegrat ing tablet Place 1 tablet twice a day by transling ual route for 30 days. 2024 active Not Available Not Available Not Avai lable ketorolac 10 mg tablet 01/31 completed Not Available Not Available Not Available prednisone 10 mg tablets in a dose pack 03/21 completed Not Available Not Available Not Available nortriptyli ne 25 mg capsule take one capsule at night 01/26 completed Not Available Not Available Not Available meloxicam 7.5 mg tablet TAKE ONE TABLET BY MOUTH ONCE A DAY active Not Available Not Available No t Available terbinafine HCl 250 mg tablet 05/28 completed Not Available Not Available Not Available famotidine 20 mg tablet 01/31 completed Not Available Not Available Not Available oxycodone-a cetaminophe n 10 mg-325 mg tablet 11/22 completed Not Available Not Available Not Available tamsulosin 0.4 mg capsule TAKE 1 CAPSULE BY MOUTH EVERY DAY active Not Available Not Available No t Available gabapentin 800 mg tablet TAKE 1 TABLET BY MOUTH 3 TIMES A DAY active Not Available Not Available No t Available baclofen 10 mg tablet active Not Available Not Available No t Available amlodipine 10 mg tablet 01/31 completed Not Available Not Available Not Available hydrocodone 7.5 mg-acetamin ophen 325 mg tablet 05/18 completed Not Available Not Available Not Available pantoprazol e 40 mg tablet,peter yed release active Not Available Not Available Not Available nortriptyli ne 10 mg capsule Take by oral route for 60 days. active Not Available Not Available No t Available metformin 1,000 mg tablet 03/21 completed Not Available Not Available Not Available metoprolol tartrate 50 mg tablet TAKE ONE TABLET BY MOUTH 2 TIMES A DAY WITH MEALS active Not Available Not Available No t Available docusate sodium 100 mg capsule Take by oral route. 09/23 completed Not Available Not Available Not Available gabapentin 300 mg capsule 03/21 completed Not Available Not Available Not Available omeprazole 20 mg capsule,del ayed release TAKE ONE CAPSULE BY MOUTH ONCE A DAY active Not Available Not Available No t Available diclofenac sodium 75 mg tablet,peter yed release Take by oral route for 30 days. active Not Available Not Available No t Available bisacodyl 5 mg tablet,peter yed release 01/31 completed Not Available Not Available Not Available gabapentin 100 mg capsule 03/21 completed Not Available Not Available Not Available irbesartan 150 mg tablet TAKE ONE TABLET BY MOUTH ONCE A DAY active Not Available Not Available No t Available polyethylen e glycol 3350 17 gram/dose oral powder 08/12 completed Not Available Not Available Not Available levofloxaci n 500 mg tablet 01/26 completed Not Available Not Available Not Available oxycodone-a cetaminophe n 7.5 mg-325 mg tablet TAKE 1 TABLET BY MOUTH 3 TIMES A DAY active Not Available Not Available No t Available methylpredn isolone 4 mg tablets in a dose pack 07/27 completed Not Available Not Available Not Available albuterol sulfate HFA 90 mcg/actuati on aerosol inhaler INHALE 2 PUFFS BY MOUTH EVERY 4 TO 6 HOURS NEEDED active Not Available Not Available No t Available docusate sodium 250 mg capsule Take by oral route for 5 days. active Not Available Not Available No t Available ketoconazol e 2 % topical cream 05/28 completed Not Available Not Available Not Available nifedipine ER 60 mg tablet,exte nded release active Not Available Not Available Not Available losartan 100 mg tablet 01/26 completed Not Available Not Available Not Available fluticasone propionate 50 mcg/actuati on nasal spray,suspe nsion USE 1 OR 2 SPRAYS IN EACH NOSTRIL ONCE A DAY NEEDED active Not Available Not Available No t Available cholecalcif silva (vitamin D3) 125 mcg (5,000 unit) capsule active Not Available Not Available Not Available doxycycline hyclate 100 mg tablet 09/23 completed Not Available Not Available Not Available loratadine 10 mg tablet TAKE ONE TABLET BY MOUTH ONCE A DAY active Not Available Not Available No t Available diazepam 5 mg tablet 01/31 completed Not Available Not Available Not Available amoxicillin 875 mg-potassiu m clavulanate 125 mg tablet 03/21 completed Not Available Not Available Not Available oxycodone 5 mg tablet 09/23 completed Not Available Not Available Not Available cyclobenzap rine 5 mg tablet 03/21 completed Not Available Not Available Not Available metformin ER 750 mg tablet,exte nded release 24 hr 10/12 completed Not Available Not Available Not Available rosuvastati n 20 mg tablet TAKE ONE TABLET BY MOUTH ONCE A DAY active Not Available Not Available No t Available tadalafil 5 mg tablet active Not Available Not Available No t Available duloxetine 30 mg capsule,del ayed release Take by oral route for 30 days. active Not Available Not Available No t Available BD Ultra-Fine Mini Pen Needle 31 gauge x 3/16 03/18 completed Not Available Not Available Not Available losartan 100 mg-hydrochl orothiazide 12.5 mg tablet 03/21 completed Not Available Not Available Not Available Amitiza 24 mcg capsule Take by oral route for 60 days. active Not Available Not Available No t Available hydrochloro thiazide 12.5 mg tablet TAKE ONE TABLET BY MOUTH ONCE A DAY active Not Available Not Available No t Available Janumet 50 mg-500 mg tablet 10/12 completed Not Available Not Available Not Available Symbicort 80 mcg-4.5 mcg/actuati on HFA aerosol inhaler Inhale by inhalatio n route. active Not Available Not Available No t Available FreeStyle Lite Meter kit 05/28 completed Not Available Not Available Not Available Stool Softener-St imulant Laxative 8.6 mg-50 mg tablet active Not Available Not Available No t Available Humalog KwikPen (U-100) Insulin 100 unit/mL subcutaneou s Inject by sub-q route for 46 days. active Not Available Not Available No t Available cholecalcif silva (vitamin D3) 50 mcg (2,000 unit) tablet Take by oral route for 30 days. 08/12 completed Not Available Not Available Not Available ClearLax 17 gram oral powder packet Take 1 packet every day by oral route. 05/22 completed Not Available Not Available Not Available Vitamin D3 125 mcg (5,000 unit) tablet Take by oral route. 05/28 completed Not Available Not Available Not Available OneTouch Verio test strips active Not Available Not Available Not Available Farxiga 10 mg tablet 01/31 completed Not Available Not Available Not Available Jardiance 10 mg tablet TAKE ONE TABLET BY MOUTH EVERY MORNING active Not Available Not Available No t Available Jardiance 25 mg tablet 01/26 completed Not Available Not Available Not Available Trulicity 1.5 mg/0.5 mL subcutaneou s pen injector 01/26 completed Not Available Not Available Not Available Accu-Chek Guide Glucose Meter 03/21 completed Not Available Not Available Not Available Clenpiq 10 mg-3.5 gram-12 gram/160 mL oral solution 01/26 completed Not Available Not Available Not Available Accu-Chek Fastclix Lancet Drum 03/21 completed Not Available Not Available Not Available OneTouch Delica Plus Lancet 33 gauge active Not Available Not Available Not Available Vitals Date Recorded Body height Body mass index (BMI) Body weight Oxygen saturation Oxygen saturation in Arterial blood by Pulse oximetry Heart rate Systolic And Diastolic Provider Name and Address Organization Details Last Updated DateTime 5 182.88 cm 29.8 kg/m2 34522.3 2 g 98 % 98 % 83 /min 110/80 mm[Hg] Leah Hines [facility] 5 11:10:08 Date Recorded Body height Body mass index (BMI) Body weight Heart rate Oxygen saturation Oxygen saturation in Arterial blood by Pulse oximetry Systolic And Diastolic Provider Name and Address Organization Details Last Updated DateTime 5 182.88 cm 30.1 kg/m2 300986. 51 g 82 /min 96 % 96 % 138/79 mm[Hg] Zelda Elkin rankin [facility] 5 10:37:29 Date Recorded Body height Body mass index (BMI) Body weight Provider Name and Address Organization Details Last Updated DateTime 10/08/2024 182.88 cm 30.1 kg/m2 600129.51 g Zelda Walshnegin [facility] 10/08/2024 11:03:46 Date Recorded Body height Body mass index (BMI) Body weight Oxygen saturation Oxygen saturation in Arterial blood by Pulse oximetry Heart rate Systolic And Diastolic Provider Name and Address Organization Details Last Updated DateTime 4 182.88 cm 29.8 kg/m2 33825.3 2 g 99 % 99 % 95 /min 157/93 mm[Hg] Leah Hines [facility] 4 10:17:50 Date Recorded Body height Body mass index (BMI) Body weight Oxygen saturation Oxygen saturation in Arterial blood by Pulse oximetry Heart rate Systolic And Diastolic Provider Name and Address Organization Details Last Updated DateTime 4 182.88 cm 29.8 kg/m2 22702.3 2 g 96 % 96 % 95 /min 108/73 mm[Hg] Leah Hines [place] [facility] 10:54:16 Social History Question Answer Notes LastModified by Organizat ion Details LastModified Time Tobacco Smoking Status Current Some Day Smoker judy zheng [place] [facility] 05/18/2020 09:13:29 Do You Have An Advance Directive? No [email or web address] Information n ot available 01/26/2022 What Is Your Level Of Caffeine Consumption? Moderate Information not available 05/18/2020 How Much Tobacco Do You Chew? None Information not available 05/18/2020 In The 14 Days Before Symptom Onset, Have You Had Close Contact With A Laboratory-confirm ed COVID-19 While That Case Was Ill? No Information n ot available 05/22/2022 In The 14 Days Before Symptom Onset, Have You Had Close Contact With A Person Who Is Under Investigation For COVID-19 While That Person Was Ill? No [email or web address] Information not available 05/22/2022 Are You Deaf Or Do You Have Serious Difficulty Hearing? No Information not available 05/18/2020 What Type Of Diet Are You Following? REGULAR [email or web address] Information n ot available 01/26/2022 What Is The Highest Grade Or Level Of School You Have Completed Or The Highest Degree You Have Received? [id number] [email or web address] Information not available 01/26/2022 How Many Times Per Week Do You Exercise? 1-2 Times Per Week [email or web address] Information not available 07/23/2022 Hard Of Hearing Or Deaf In One Or Both Ears? No Information not available 05/18/2020 Disability No [email or web address] Information n ot available 03/21/2020 Marital Status Single Informatio n not available 05/18/2020 Do You Have A Medical Power Of Geomatics Professor? No [email or web address] Information not available 05/28/2023 What Was The Date Of Your Most Recent Tobacco Screening? 09/24/2023 [email or web address] Information not available 09/24/2023 What Is Your Relationship Status? Single [email or web address] Information not available 01/26/2022 At What Age Did You Start Smoking Tobacco? 24 Information not available 05/18/2020 How Much Tobacco Do You Smoke? 1 PPW Information not available 05/18/2020 General Stress Level Medium Information not available 05/18/2020 How Many Years Have You Smoked Tobacco? 0 Information not available 05/18/2020 Do You Have Difficulty Walking Or Climbing Stairs? No Information not available 05/18/2020 Sex: Unknown Functional Status Question Answer Note LastModified by Organizat ion Details LastModified Time How many times per week do you consume alcohol? Less than 1 time per week Information not available 05/22/2022 Do you use any illicit or recreational drugs? No [email or web address] Information not available 05/28/2022 What is your level of alcohol consumption? Occasional Information not available 05/18/2020 Are you currently employed? Yes [email or web address] Information not available 01/26/2022 Do you have difficulty doing errands alone? No Information not available 05/18/2020 What is your occupation? full-time Information not available 05/18/2020 Do you have difficulty dressing or bathing? No Information not available 05/18/2020 What is your exercise level? Occasional [email or web address] Information not available 01/26/2022 Mental Status Question Answer Note LastModified by Organization D etails LastModified Time Do you have difficulty concentrating, remembering or making decisions? No Information no t available 05/18/2020 Family History Nothing Reported. Medical History Condition Response Bipolar Disease N Coronary Artery Disease N Gout N Atrial Fibrillation N Head Trauma/Injury N Depression N COPD N Anxiety Disorder Y Acid Reflux (GERD) Y Cancer N Stroke N Rheumatoid Arthritis N Fibromyalgia N Headaches N Kidney Disease N DVT N Peptic Ulcer Disease N Bleeding Disorder N CHF N AIDS/HIV N Asthma N Substance Abuse N Hepatitis N Pulmonary Embolism N Chronic Low Back Pain Y Seizure Disorder N Thyroid Disease N Hernia N Skin Disorder N High Cholesterol N Liver Disease N Autoimmune Disease N Osteoarthritis N Neurosurgery N Anemia N Heart Attack (OK) N Diabetes Y Cardiomyopathy N Inflammatory Bowel Disease N Dementia N Sleep Apnea N Heart Disease N Hypertension Y Osteoporosis N Past Encounters Encounter ID Performer Location Encounter Start Date Encounter Closed Date Diagnosis/Indication Diagnosis SNOMED-CT Code Diagnosis ICD10 Code Diagnosis Note [id number] Sid Braga MD [facility] [address] [place] [address] 03/21/2020 14:44:09 03/21/2020 16:05:11 Long-term drug therapy 395182103 Z79.899 The urine sample is being sent for quantitati ve LCMS analysis of illicit drugs (Cocaine, Methamphet amine, Heroin, Fentanyl, THC, Synthetic Cannabinoi ds, Kratom, MDMA, PCP, and Synthetic Stimulants , Opiates (Codeine, Hydrocodon e, Hydromorph one, and Morphine), Oxycodone, Oxymorphon e, Methadone, Synthetic Opioids (Tramadol, Tapentadol , and Buprenorph ine), Benzodiaze pines (Alprazola m, Clonazepam , Lorazepam, Diazepam, Nordazepam , Oxazepam, and Temazepam) , Gabapentin , Pregabalin , Muscle Relaxants (Carisopro dol, Cyclobenza vonda, and Meprobamat e), Ketamine, Naloxone, and Amphetamin e, as this patient is being prescribed opioid medication s for the first time at this practice. The purpose of this analysis is to confirm the patients stated medication usage and to establish baseline medication and metabolite quantities , and to evaluate for use of medication s that are not prescribed or reported by the patient. Lumbar radiculopathy 128 404045 M54.16 Spinal domo nosis of lumbar region 68519401 M48.062 Degenerati on of lumbar intervertebral disc 43020582 M51.36 [id number] Sid Braga MD [facility] [address] [place] [address] 04/20/2020 08:19:01 04/20/2020 09:07:46 Lumbar radiculopathy 851818376 M54.16 Spinal domo nosis of lumbar region 00284145 M48.062 Degenerati on of lumbar intervertebral disc 40656150 M51.36 Long-term drug therapy 094004787 Z79.899 Pain of ri ght hip joint 6668054195 49958 M25.619 [id number] Sid Braga MD [facility] [address] [place] [address] 05/18/2020 09:07:42 05/18/2020 09:40:00 Neck pain 04291464 M54.2 Spinal domo nosis of lumbar region 07691912 M48.062 Lumbar spondylosis 42003 0009 M47.896 Osteoarthr itis of right hip joint 7444988444 75998 M16.11 Lumbar radiculopathy 128 359694 M54.16 [id number] Sid Braga MD [facility] [address] [place] [address] 06/15/2020 08:55:05 06/15/2020 09:46:45 Neck pain 93669041 M54.2 Spinal domo nosis of lumbar region 87700278 M48.062 Lumbar spondylosis 51976 0009 M47.896 Osteoarthr itis of right hip joint 7889137423 70633 M16.11 Lumbar radiculopathy 128 M54.16 [id number] Sid Braga MD [facility] [address] [place] [address] 07/15/2020 08:45:11 07/15/2020 09:13:02 Neck pain 68730988 M54.2 Spinal domo nosis of lumbar region 10258658 M48.062 Lumbar spondylosis 62303 0009 M47.896 Osteoarthr itis of right hip joint 3674064285 56942 M16.11 Lumbar radiculopathy 128 M54.16 [id number] MD Yossi Blankington [address] [place] [address] 08/15/2020 08:27:44 08/15/2020 08:58:58 Neck pain 28820174 M54.2 Spinal domo nosis of lumbar region 38019554 M48.062 Lumbar spondylosis 92489 0009 M47.896 Osteoarthr itis of right hip joint 6140894056 M16.11 Lumbar radiculopathy 128 055440 M54.16 Long-term drug therapy 021262907 Z79.899 Send for LCMS confirmati on of Oxycodone and Oxymorphon e to confirm the quantitati ve levels of these drugs that the patient is prescribed . Send for LCMS confirmati on of Opiates (Codeine, Hydrocodon e, Hydromorph one, Morphine, and Heroin) as these are frequently used and/or abused pain medication s amongst chronic pain patients in our community. Send for LCMS confirmati on of Synthetic Opioids (Fentanyl, Methadone, Tramadol, Tapentadol , and Buprenorph ine) as these drugs will not be detected in Opiate [place] testing and these are also frequently used and/or abused pain medication s in our community. [id number] MD Yossi Blankington [address] [place] [address] 09/13/2020 08:53:50 09/13/2020 09:08:20 Neck pain 83687066 M54.2 Spinal domo nosis of lumbar region 29214534 M48.062 Lumbar spondylosis 78268 0009 M47.896 Osteoarthr itis of right hip joint 2966369984 13984 M16.11 Lumbar radiculopathy 128 428592 M54.16 Long-term drug therapy 593643814 Z79.541 [id number] Sid Braga MD [facility] [address] [place] [address] 10/12/2020 08:50:30 10/12/2020 09:12:09 Neck pain 80826863 M54.2 Spinal domo nosis of lumbar region 48340320 M48.062 Lumbar spondylosis 57275 0009 M47.896 Osteoarthr itis of right hip joint 6695036551 99517 M16.11 Lumbar radiculopathy 128 500610 M54.16 Long-term drug therapy 075125161 Z79.172 [id number] MD Yossi Blankington [address] [place] [address] 11/09/2020 08:46:33 11/09/2020 09:21:10 Neck pain 37187398 M54.2 Spinal domo nosis of lumbar region 47705597 M48.062 Lumbar spondylosis 11279 0009 M47.896 Osteoarthr itis of right hip joint 7517013143 71946 M16.11 Lumbar radiculopathy 128 988226 M54.16 Long-term drug therapy 226046880 Z79.221 [id number] MD Yossi [facility] [address] [place] [address] 12/09/2020 09:03:52 12/09/2020 09:26:55 Neck pain 54725508 M54.2 Spinal domo nosis of lumbar region 48495557 M48.062 Lumbar spondylosis 38846 0009 M47.896 Osteoarthr itis of right hip joint 8288132679 95786 M16.11 Lumbar radiculopathy 128 967740 M54.16 Long-term drug therapy 171421575 Z79.156 [id number] Sid Braga MD [facility] [address] [place] [address] 02/01/2021 08:23:37 02/01/2021 09:09:05 Neck pain 94037553 M54.2 Spinal domo nosis of lumbar region 31030704 M48.062 Lumbar spondylosis 08883 0009 M47.896 Osteoarthr itis of right hip joint 1217126529 48843 M16.11 Lumbar radiculopathy 128 M54.16 Long-term drug therapy 377910899 Z79.899 Send for LCMS confirmati on of illicit drugs (Cocaine, Methamphet amine, Heroin, Fentanyl, THC, Synthetic Cannabinoi ds, Kratom, MDMA, PCP, and Synthetic Stimulants ) to confirm the quantitati ve levels of these drugs and their metabolite s as the preliminar y IA test is positive for an illicit drug.Send for LCMS confirmati on of Oxycodone and Oxymorphon e to confirm the quantitati ve levels of these drugs that the patient is prescribed . Send for LCMS confirmati on of Opiates (Codeine, Hydrocodon e, Hydromorph one, Morphine, and Heroin) as these are frequently used and/or abused pain medication s amongst chronic pain patients in our community. Send for LCMS confirmati on of Synthetic Opioids (Fentanyl, Methadone, Tramadol, Tapentadol , and Buprenorph ine) as these drugs will not be detected in Opiate [place] testing and these are also frequently used and/or abused pain medication s in our community. Send for LCMS confirmati on of Gabapentin to confirm the quantitati ve level of this drug and its metabolite as it will not be detected in [place] testing and the patient is currently prescribed Gabapentin .The patient was advised that the purpose of this urine drug screen is to monitor for compliance and to assist in risk stratifica tion. The results of this preliminar y screening test was discussed with the patient. [id number] Sid Braga MD [facility] [address] [place] [address] 03/29/2021 08:28:43 03/29/2021 08:56:33 Neck pain 67279313 M54.2 Spinal domo nosis of lumbar region 21760285 M48.062 Lumbar spondylosis 15491 0009 M47.896 Osteoarthr itis of right hip joint 6670218431 46062 M16.11 Lumbar radiculopathy 128 720539 M54.16 Long-term drug therapy 289248018 Z79.373 [id number] Sid Braga MD [facility] [address] [place] [address] 05/31/2021 08:28:27 05/31/2021 09:03:09 Neck pain 23674954 M54.2 Spinal domo nosis of lumbar region 96984331 M48.062 Lumbar spondylosis 34375 0009 M47.896 Osteoarthr itis of right hip joint 9887904613 41002 M16.11 Lumbar radiculopathy 128 558481 M54.16 Long-term drug therapy 022890695 Z79.899 Send for LCMS confirmati on of Gabapentin to confirm the quantitati ve level of this drug and its metabolite as it will not be detected in [place] testing and the patient is currently prescribed Gabapentin .Send for LCMS confirmati on of Oxycodone and Oxymorphon e to confirm the quantitati ve levels of these drugs that the patient is prescribed . Send for LCMS confirmati on of Opiates (Codeine, Hydrocodon e, Hydromorph one, Morphine, and Heroin) as these are frequently used and/or abused pain medication s amongst chronic pain patients in our community. Send for LCMS confirmati on of Synthetic Opioids (Fentanyl, Methadone, Tramadol, Tapentadol , and Buprenorph ine) as these drugs will not be detected in Opiate [place] testing and these are also frequently used and/or abused pain medication s in our community. The patient was advised that the purpose of this urine drug screen is to monitor for compliance and to assist in risk stratifica tion. The results of this preliminar y screening test was discussed with the patient. [id number] Sid Braga MD [facility] [address] [place] [address] 07/28/2021 08:24:27 07/28/2021 09:00:31 Spinal stenosis of lumbar region 45663600 M48.062 Lumbar spondylosis 85988 0009 M47.896 Osteoarthr itis of right hip joint 6447803294 05410 M16.11 Lumbar radiculopathy 128 028117 M54.16 Long-term drug therapy 930447875 Z79.899 Cervical radiculitis 110 86861 M54.12 [id number] MD Yossi Blankington [address] [place] [address] 09/29/2021 08:20:55 09/29/2021 08:44:07 Spinal stenosis of lumbar region 80633904 M48.062 Lumbar spondylosis 76464 0009 M47.896 Osteoarthr itis of right hip joint 0709823422 92037 M16.11 Lumbar radiculopathy 128 094831 M54.16 Long-term drug therapy 178217072 Z79.899 Cervical radiculitis 110 93150 M54.12 [id number] Sid Braga MD [facility] [address] [place] [address] 11/29/2021 08:34:34 11/29/2021 09:07:46 Spinal stenosis of lumbar region 16597564 M48.062 Lumbar spondylosis 18034 0009 M47.896 Osteoarthr itis of right hip joint 2398338844 42169 M16.11 Lumbar radiculopathy 128 435985 M54.16 Long-term drug therapy 490585714 Z79.899 Send for LCMS confirmati on of Oxycodone and Oxymorphon e to confirm the quantitati ve levels of these drugs that the patient is prescribed . Send for LCMS confirmati on of Opiates (Codeine, Hydrocodon e, Hydromorph one, Morphine, and Heroin) as these are frequently used and/or abused pain medication s amongst chronic pain patients in our community. Send for LCMS confirmati on of Synthetic Opioids (Fentanyl, Methadone, Tramadol, Tapentadol , and Buprenorph ine) as these drugs will not be detected in Opiate [place] testing and these are also frequently used and/or abused pain medication s in our community. Send for LCMS confirmati on of Gabapentin to confirm the quantitati ve level of this drug and its metabolite as it will not be detected in IA testing and the patient is currently prescribed Gabapentin .The patient was advised that the purpose of this urine drug screen is to monitor for compliance and to assist in risk stratifica tion. The results of this preliminar y screening test was discussed with the patient. Cervical radiculitis 110 18898 M54.12 Adult heal th examination 539188020 Z00.01 [id number] MD Rachel Blank [address] [place] [address] 01/26/2022 08:34:20 01/26/2022 09:33:23 Spinal stenosis of lumbar region 04404897 M48.062 Lumbar spondylosis 03641 0009 M47.896 Osteoarthr itis of right hip joint 0846491847 55570 M16.11 Lumbar radiculopathy 128 686746 M54.16 Long-term drug therapy 808904109 Z79.899 Cervical radiculitis 110 39769 M54.12 Adult heal th examination 985654514 Z00.01 [id number] Sid Braga MD [facility] [address] [place] [address] 03/27/2022 08:38:03 03/27/2022 08:59:58 Osteoarthritis of right hip joint 3034994379 13851 M16.11 Lumbar radiculopathy 128 335889 M54.16 Spinal domo nosis in cervical region 02751934 M48.02 Cervical spondylosis 387 406839 M47.812 Cervical radiculitis 110 91868 M54.12 [id number] ADY MTZ MD [facility] [address] [place] [address] 05/28/2022 08:39:36 05/28/2022 09:02:08 Long-term drug therapy 559336562 Z79.899 Hypertensi on screening 507008907 Z13.6 Osteoarthr itis of right hip joint 9634220765 06349 M16.11 Lumbar radiculopathy 128 686390 M54.16 Spinal domo nosis in cervical region 92749780 M48.02 Cervical spondylosis 387 510792 M47.812 Cervical radiculitis 110 76678 M54.12 [id number] ADY MTZ MD [facility] [address] [place] [address] 07/27/2022 08:45:33 07/27/2022 09:15:35 Hypertension screening 593000849 Z13.6 Osteoarthr itis of right hip joint 8288918212 53727 M16.11 Lumbar radiculopathy 128 511196 M54.16 Spinal domo nosis in cervical region 25751696 M48.02 Cervical spondylosis 387 528425 M47.812 Cervical radiculitis 110 66462 M54.12 Long-term drug therapy 906906173 Z79.899 UDS DONE 07/27/2022 [id number] ADY MTZ MD [facility] [address] [place] [address] 09/25/2022 08:30:39 09/25/2022 08:55:23 Osteoarthritis of right hip joint 4192443967 51570 M16.11 Lumbar radiculopathy 128 366257 M54.16 Spinal domo nosis in cervical region 34064410 M48.02 Cervical spondylosis 387 397666 M47.812 Cervical radiculitis 110 24774 M54.12 Long-term drug therapy 270826271 Z79.899 UDS TODAY 09/25/2022 Last dose of Percocet and Gabapentin was 09/25/2022 at 6 am [id number] ADY MTZ MD [facility] [address] [place] [address] 11/22/2022 09:18:28 11/22/2022 09:43:45 Osteoarthritis of right hip joint 0899471423 60776 M16.11 Lumbar radiculopathy 128 570269 M54.16 Spinal domo nosis in cervical region 48718622 M48.02 Cervical spondylosis 387 053435 M47.812 Cervical radiculitis 110 80645 M54.12 Long-term drug therapy 182634122 Z79.899 NO UDS TODAY 11/22/2022 [id number] ADY MTZ MD [facility] [address] [place] [address] 01/31/2023 10:58:27 01/31/2023 11:26:55 Osteoarthritis of right hip joint 1582366804 38977 M16.11 Lumbar radiculopathy 128 566062 M54.16 Spinal domo nosis in cervical region 68039387 M48.02 Cervical spondylosis 387 152643 M47.812 Cervical radiculitis 110 71929 M54.12 Long-term drug therapy 879002178 Z79.899 NO UDS TODAY 01/31/2023 [id number] ADY MTZ MD [facility] [address] [place] [address] 03/29/2023 11:10:04 03/29/2023 11:38:59 Osteoarthritis of right hip joint 7872342082 39956 M16.11 Lumbar radiculopathy 128 154467 M54.16 Spinal domo nosis in cervical region 14739248 M48.02 Cervical spondylosis 387 020571 M47.812 Cervical radiculitis 110 30418 M54.12 Long-term drug therapy 054935235 Z79.899 UDS TODAY 03/29/2023 Last dose of percocet and gabapentin was around 430AM this morning 03/29/2023 [id number] ADY MTZ MD [facility] [address] [place] [address] 05/28/2023 11:04:28 05/28/2023 11:42:09 Lumbar radiculopathy 542487651 M54.16 Use of the medication does allow the patient to perform the activities of daily living and function without being in severe pain. Spinal domo nosis in cervical region 28417793 M48.02 Long-term drug therapy 678283109 Z79.899 Hypertensi on screening 012231075 Z13.6 [id number] MD Yossi PETERSENington [address] [place] [address] 07/26/2023 10:46:05 07/26/2023 11:28:59 Lumbar radiculopathy 884889741 M54.16 Use of the medication does allow the patient to perform the activities of daily living and function without being in severe pain. Hypertensi on screening 499692026 Z13.6 Long-term drug therapy 715185380 Z79.899 NO UDS TODAY Lumbar spondylosis 65137 0009 M47.896 Cervical spondylosis 387 770819 M47.562 [id number] MD Yossi PETERSENington [address] [place] [address] 09/24/2023 11:18:51 09/24/2023 11:42:48 Lumbar radiculopathy 755819765 M54.16 Use of the medication does allow the patient to perform the activities of daily living and function without being in severe pain. Long-term drug therapy 411052897 Z79.899 UDS TODAYLast dose of Percocet and Gabapentin was this morning around 8AM 09/24/2023 Lumbar spondylosis 55596 0009 M47.816 Cervical spondylosis 387 137733 M47.812 Chronic pain 72420979 G8 9.29 [id number] ADY MTZ MD [facility] [address] [place] [address] 11/20/2023 11:05:57 11/20/2023 11:44:07 Lumbar radiculopathy 404116472 M54.16 Use of the medication does allow the patient to perform the activities of daily living and function without being in severe pain. Lumbar spondylosis 93589 0009 M47.816 Cervical spondylosis 387 740924 M47.812 Long-term drug therapy 369650043 Z79.899 NO UDS TODAY Chronic pain 15210756 G8 9.29 Cervical radiculopathy 67551012 M54.12 [id number] MD Rachel PETERSEN [address] [place] [address] 01/20/2024 10:11:26 01/20/2024 10:31:16 Lumbar radiculopathy 557103176 M54.16 Use of the medication does allow the patient to perform the activities of daily living and function without being in severe pain. Lumbar spondylosis 44791 0009 M47.816 Cervical radiculopathy 98416170 M54.12 Cervical spondylosis 387 021009 M47.812 Long-term drug therapy 467271711 Z79.899 UDS TODAYLast dose: 01/20/2024 Percocet & Gabapentin - 6 am 01/20/2024 Chronic pain 09249715 G8 9.29 [id number] ADY MTZ MD [facility] [address] [place] [address] 03/18/2024 10:40:37 03/18/2024 11:22:39 Lumbar radiculopathy 419612367 M54.16 Use of the medication does allow the patient to perform the activities of daily living and function without being in severe pain. Lumbar spondylosis 12596 0009 M47.816 Cervical radiculopathy 51894716 M54.12 Chronic pain 47636748 G8 9.29 Cervical spondylosis 387 645615 M47.812 Long-term drug therapy 001215595 Z79.899 NO UDS TODAY [id number] MD Yossi PETERSENington [address] [place] [address] 05/20/2024 10:59:12 05/20/2024 11:30:01 Chronic pain 66328503 G89.29 Lumbar radiculopathy 128 932877 M54.16 Use of the medication does allow the patient to perform the activities of daily living and function without being in severe pain. Lumbar spondylosis 62776 0009 M47.816 Cervical radiculopathy 33244949 M54.12 Cervical spondylosis 387 226413 M47.812 Long-term drug therapy 596413928 Z79.899 UDS TODAYLast dose: was this morningPer cocet & Gabapentin - 5 am 05/20/2024 [id number] MD Rachel PETERSEN [address] [place] [address] 08/12/2024 10:33:17 08/12/2024 11:04:36 Chronic pain 55623116 G89.29 Lumbar radiculopathy 128 141628 M54.16 Use of the medication does allow the patient to perform the activities of daily living and function without being in severe pain. Lumbar spondylosis 59826 0009 M47.816 Cervical radiculopathy 82431683 M54.12 Cervical spondylosis 387 405816 M47.812 Long-term drug therapy 376403114 Z79.899 NO UDS TODAY 08/12/2024 Myofascial pain 61383151 9 M79.18 Nausea 215153968 R11.0 [id number] ADY MTZ MD [facility] [address],[facility] [address] [place] [address] 10/08/2024 10:54:10 10/08/2024 11:22:09 Chronic pain 79016894 G89.29 Lumbar radiculopathy 128 138904 M54.16 Use of the medication does allow the patient to perform the activities of daily living and function without being in severe pain. Lumbar spondylosis 86028 0009 M47.816 Cervical radiculopathy 73700393 M54.12 Cervical spondylosis 387 155814 M47.812 Long-term drug therapy 739558057 Z79.899 UDS TODAY 10/08/2024 LAST DOSE PERCECET AND GABAPENTIN 7AM 10/08/2024 Myofascial pain 04024900 9 M79.18 Nausea 031794739 R11.0 Health Concerns Section Related Observation LastModified by Organization Detai ls LastModified Time None Recorded Concern Status LastModified by Organization Details LastModified Time None Recorded Advance Directives Directive N: Payers Insurance Date Sequence Insurance Name Policy Number Policy Bloom Covered Member ID Bloom Member ID Guarantor Name 05/20/2024 1 [place] [id number] Lewis Chan [id number] Lewis Chan 05/20/2024 1 MEDICAID-[facility] CHOICES - FFS/TRADITION AL Lewis Chan [id number] Lewis Chan 10/13/2024 2 [facility] [id number] Lewis Chan [id number] Lewis Chan 10/09/2024 1 [place] Lewis Chan [id number] Lewis Chan 03/18/2024 1 [place] [id number] Lewis Chan [id number] Lewis Chan Notes Date Note Type Note Provider Name and Address Organization Details Recorded Time 01/20/2024 text/html HipReported bypatient.Location: bilateral Quality:throbbing; shooting, spasms, stiffness, tingling Severity:no pain; pain level 0/10 Timing:morning Context:cannot identify Alleviating Factors:sitting Aggravating Factors:standing (long periods) Associated Symptoms:no swelling; no redness; no warmth;weakness;num bness;tingling; R>L MedicationsNeuropat hics: (Gabapentin); Opioid pain medications: (Percocet); Last dose: 01/20/2024 Percocet & Gabapentin- 6 am 01/20/2024 Work Related:no Working:modified dutyNotes:patient states that he has had hip pain going on for about 2 years. patient states Gabapentin and oxycodone isn't effective. Patient has MRI of right hip for review.Low back painReported bypatient.Location: paraspinal: ; radiating down the to the knee lower extremity ; right buttock and right groin Duration:varies throughout the day Context:started without cause Quality:aching; throbbing; sharp; shooting, tingling Pain IntensitySevere; current pain level: 5/10; average pain level: 5/10; worst pain level: 8/10 Alleviating Factors:nothing helps Aggravating Factors:standing Associated Symptoms:no swelling; no popping/clicking; no bowel incontinence; no urinary retention; no urinary incontinence; no perineal paresthesia/anesthe sergio;weakness;numbne ss;tingling Functional Assessment of ADLsLiving independently.; Able to bathe/groom without assistance.; Able to complete [place] guide without much difficulty.; Walking without assistance or significant difficulty; Working without restriction.; Exercising on a regular basis.; Participating in recreation on a regular basis. Prior Imaging:MRI Interventional Treatment History:Patient states he has had several injections with Dr. Vigil without benefit. Physical Therapy:Facility: ([facility]); completed all recommended PT visits; complete more than 6weeks; Patient was doing PT with Suman Mckeon with minimal benefit. Current Analgesics:Oxycodon e effective; Gabapentin effective; Reported pain relief- 50% for 3 hours; Last dose: 01/20/2024 Percocet & Gabapentin- 6 am 01/20/2024 Medications History:Muscle relaxants: (Cyclobenzaprine (effective)); Neuropathics: (Gabapentin (effective)); Opioid pain medications: (Sweet Water (not effective)) Adverse Reactions:No nausea; No vomiting; No constipation; No itching; No respiratory depression Prior Pain Management:Suman Mckeon Complete Care Program:Order Date: (01/20/2024) Patient is here for f/u. Since last visit; patient has followed up with PCP, Patient states he had a CT scan of his lungs results were negative. Patient states he had an xray on his lower back and hip where they stated he had alot Arthritis in his hip and he will have infections done in the future. CANDELARIA VÁSQUEZ APRN [address] [place], [address], [facility] 01/20/2024 12:33:13 03/18/2024 text/html HipReported bypatient.Location: bilateral Quality:throbbing; shooting, spasms, stiffness, tingling Severity:no pain; pain level 0/10 Timing:morning Context:cannot identify Alleviating Factors:sitting Aggravating Factors:standing (long periods) Associated Symptoms:no swelling; no redness; no warmth;weakness;num bness;tingling; R>L MedicationsNeuropat hics: (Gabapentin); Opioid pain medications: (Percocet); Last dose: was this morning 03/18/2024 Percocet & Gabapentin- 6 am Work Related:no Working:modified dutyNotes:patient states that he has had hip pain going on for about 2 years. patient states Gabapentin and oxycodone isn't effective. Patient has MRI of right hip for review.Low back painReported bypatient.Location: paraspinal: ; radiating down the to the knee lower extremity ; right buttock and right groin Duration:varies throughout the day Context:started without cause Quality:aching; throbbing; sharp; shooting, tingling Pain IntensitySevere; current pain level: 5/10; average pain level: 5/10; worst pain level: 8/10 Alleviating Factors:nothing helps Aggravating Factors:standing Associated Symptoms:no swelling; no popping/clicking; no bowel incontinence; no urinary retention; no urinary incontinence; no perineal paresthesia/anesthe sergio;weakness;numbne ss;tingling Functional Assessment of ADLsLiving independently.; Able to bathe/groom without assistance.; Able to complete [place] guide without much difficulty.; Walking without assistance or significant difficulty; Working without restriction.; Exercising on a regular basis.; Participating in recreation on a regular basis. Prior Imaging:MRI Interventional Treatment History:Patient states he has had several injections with Dr. Vigil without benefit. Physical Therapy:Facility: ([facility]); completed all recommended PT visits; complete more than 6weeks; Patient was doing PT with Suman Mckeon with minimal benefit. Current Analgesics:Oxycodon e effective; Gabapentin effective; Reported pain relief- 50% for 3 hours; Last dose: was this morning 03/18/2024 Percocet & Gabapentin- 6 am Medications History:Muscle relaxants: (Cyclobenzaprine (effective)); Neuropathics: (Gabapentin (effective)); Opioid pain medications: (Sweet Water (not effective)) Adverse Reactions:No nausea; No vomiting; No constipation; No itching; No respiratory depression Prior Pain Management:Suman Mckeon Complete Care Program:Order Date: (01/20/2024) Patient is here for f/u. Patient states pain is 6/10 today . patient states he had the Spinal fusion surgery last month he went to [facility] for 3 weeks . Patient states his hip and lower has been the same . Patient states he is loosing being able to use of his right hand. CANDELARIA VÁSQUEZ, LIVESTOCK SPECULATOR [address] [place], [address], [facility] 03/19/2024 07:32:56 05/20/2024 text/html HipReported bypatient.Location: bilateral Quality:throbbing; shooting, spasms, stiffness, tingling Severity:no pain; pain level 0/10 Timing:morning Context:cannot identify Alleviating Factors:sitting Aggravating Factors:standing (long periods) Associated Symptoms:no swelling; no redness; no warmth;weakness;num bness;tingling; R>L MedicationsNeuropat hics: (Gabapentin); Opioid pain medications: (Percocet); Last dose: was this morning Percocet & Gabapentin- 5 am 05/20/2024 Work Related:no Working:modified dutyNotes:patient states that he has had hip pain going on for about 2 years. patient states Gabapentin and oxycodone isn't effective. Patient has MRI of right hip for review.Low back painReported bypatient.Location: paraspinal: ; radiating down the to the knee lower extremity ; right buttock and right groin Duration:varies throughout the day Context:started without cause Quality:aching; throbbing; sharp; shooting, tingling Pain IntensitySevere; current pain level: 5/10; average pain level: 5/10; worst pain level: 8/10 Alleviating Factors:nothing helps Aggravating Factors:standing Associated Symptoms:no swelling; no popping/clicking; no bowel incontinence; no urinary retention; no urinary incontinence; no perineal paresthesia/anesthe sergio;weakness;numbne ss;tingling Functional Assessment of ADLsLiving independently.; Able to bathe/groom without assistance.; Able to complete whitewater river guide without much difficulty.; Walking without assistance or significant difficulty; Working without restriction.; Exercising on a regular basis.; Participating in recreation on a regular basis. Prior Imaging:MRI Interventional Treatment History:Patient states he has had several injections with Dr. Vigil without benefit. Physical Therapy:Facility: ([facility]); completed all recommended PT visits; complete more than 6weeks; Patient was doing PT with Suman Mckeon with minimal benefit. Current Analgesics:Oxycodon e effective; Gabapentin effective; Reported pain relief- 50% for 3 hours; Last dose: was this morning Percocet & Gabapentin- 5 am 05/20/2024 Medications History:Muscle relaxants: (Cyclobenzaprine (effective)); Neuropathics: (Gabapentin (effective)); Opioid pain medications: (Sweet Water (not effective)) Adverse Reactions:No nausea; No vomiting; No constipation; No itching; No respiratory depression Prior Pain Management:Suman Mckeon Complete Care Program:Order Date: (01/20/2024) Patient is here for f/u. Patient states pain is 6/10 today . Patient states he will go to ortho and hand will have hand surgery in the future . The patient has had no recent hospitalization, ER visits. Patient states on his shoulder it feels like he is having bee stings and becomes stiff. CANDELARIA VÁSQUEZ APRN [address] [place], [address], [facility] 05/20/2024 12:44:54 08/12/2024 text/html HipReported bypatient.Location: bilateral Quality:throbbing; shooting, spasms, stiffness, tingling Severity:no pain; pain level 0/10 Timing:morning Context:cannot identify Alleviating Factors:sitting Aggravating Factors:standing (long periods) Associated Symptoms:no swelling; no redness; no warmth;weakness;num bness;tingling; R>L MedicationsNeuropat hics: (Gabapentin); Opioid pain medications: (Percocet); Last dose: was this morning Percocet & Gabapentin- 5 am 05/20/2024 Work Related:no Working:modified dutyNotes:patient states that he has had hip pain going on for about 2 years. patient states Gabapentin and oxycodone isn't effective. Patient has MRI of right hip for review.Low back painReported bypatient.Location: paraspinal: ; radiating down the to the knee lower extremity ; right buttock and right groin Duration:varies throughout the day Context:started without cause Quality:aching; throbbing; sharp; shooting, tingling Pain IntensitySevere; current pain level: 6/10; average pain level: 5/10; worst pain level: 8/10 Alleviating Factors:nothing helps Aggravating Factors:standing Associated Symptoms:no swelling; no popping/clicking; no bowel incontinence; no urinary retention; no urinary incontinence; no perineal paresthesia/anesthe sergio;weakness;numbne ss;tingling Functional Assessment of ADLsLiving independently.; Able to bathe/groom without assistance.; Able to complete whitewater river guide without much difficulty.; Walking without assistance or significant difficulty; Working without restriction.; Exercising on a regular basis.; Participating in recreation on a regular basis. Prior Imaging:MRI Interventional Treatment History:Patient states he has had several injections with Dr. Vigil without benefit. Physical Therapy:Facility: ([facility]); completed all recommended PT visits; complete more than 6weeks; Patient was doing PT with Suman Mckeon with minimal benefit. Current Analgesics:Oxycodon e effective; Gabapentin effective; Reported pain relief- 50% for 3 hours; Last dose: was this morning Percocet & Gabapentin- 8am 08/12/2024 Medications History:Muscle relaxants: (Cyclobenzaprine (effective)); Neuropathics: (Gabapentin (effective)); Opioid pain medications: (Sweet Water (not effective)) Adverse Reactions:No nausea; No vomiting; No constipation; No itching; No respiratory depression Prior Pain Management:Suman Mckeon Complete Care Program:Order Date: (01/20/2024) Patient is here for f/u and medication refill. Patient states pain is 6/10 today. The patient has had no recent hospitalization, ER visits. Patient states he did have f/u with Dr. Koroma and an EMG was ordered on right hand for 08/24. Patient states he did have EMG on right hip since last visit ordered by Dr. Bunn. Patient states he will f/u with Dr. Conklin soon to discuss hip and back surgery options. Patient complains of increased pain in right hand and elbow. Patient also complains of increased pain in right hip. Patient states tizanidine was prescribed by pcp and is requesting for us to takeover this medication. Patient would also like to discuss medication increase today. CANDELARIA VÁSQUEZ, LIVESTOCK SPECULATOR [address] [place], [address], [facility] 08/13/2024 07:38:21 10/08/2024 text/html HipReported bypatient.Location: bilateral Quality:throbbing; shooting, spasms, stiffness, tingling Severity:no pain; pain level 8/10 Timing:morning Context:cannot identify Alleviating Factors:sitting Aggravating Factors:standing (long periods) Associated Symptoms:no swelling; no redness; no warmth;weakness;num bness;tingling; R>L MedicationsNeuropat hics: (Gabapentin); Opioid pain medications: (Percocet); Last dose: was this morning Percocet & Gabapentin- 5 am 05/20/2024 Work Related:no Working:modified dutyNotes:patient states that he has had hip pain going on for about 2 years. patient states Gabapentin and oxycodone isn't effective. Patient has MRI of right hip for review.Low back painReported bypatient.Location: paraspinal: ; radiating down the to the knee lower extremity ; right buttock and right groin Duration:varies throughout the day Context:started without cause Quality:aching; throbbing; sharp; shooting, tingling Pain IntensitySevere; current pain level: 8/10; average pain level: 5/10; worst pain level: 8/10 Alleviating Factors:nothing helps Aggravating Factors:standing Associated Symptoms:no swelling; no popping/clicking; no bowel incontinence; no urinary retention; no urinary incontinence; no perineal paresthesia/anesthe sergio;weakness;numbne ss;tingling Functional Assessment of ADLsLiving independently.; Able to bathe/groom without assistance.; Able to complete whitewater river guide without much difficulty.; Walking without assistance or significant difficulty; Working without restriction.; Exercising on a regular basis.; Participating in recreation on a regular basis. Prior Imaging:MRI Interventional Treatment History:Patient states he has had several injections with Dr. Vigil without benefit. Physical Therapy:Facility: ([facility]); completed all recommended PT visits; complete more than 6weeks; Patient was doing PT with Suman Mckeon with minimal benefit. Current Analgesics:Oxycodon e effective; Gabapentin effective; Reported pain relief- 50% for 3 hours; Last dose: was this morning Percocet & Gabapentin- 8am 10/08/2024 Medications History:Muscle relaxants: (Cyclobenzaprine (effective)); Neuropathics: (Gabapentin (effective)); Opioid pain medications: (Sweet Water (not effective)) Adverse Reactions:No nausea; No vomiting; No constipation; No itching; No respiratory depression Prior Pain Management:Suman Mckeon Complete Care Program:Order Date: (01/20/2024) Patient is here for f/u and medication refill. Patient states pain is 8/10 today. The patient has had no recent hospitalization, ER visits. Patient states he did have f/u with Dr. Bunn since last visit. Patient states he is scheduled for right hip replacement on 11/16. Patient complains of increased pain in lower back and right hip today. Patient states the pain has worsened and is affecting gait. Patient states he is unable to stand up straight. Patient states the pain is affecting his mood. Patient reports no other changes at this time. CANDELARIA VÁSQUEZ APRN [address] [place], [address], [facility] 10/08/2024 12:39:44
--- OUTSIDE RECORDS SUMMARY | 2024-10-27 12:04 | XMS_ITS | Encounter Summary ---
Author Organization Healthcare Address [address] [place] [address] Care Team Providers Care Brim Stiffener Name Role Phone GreggRachael ferguson Andrew OATES Primary Care Provider [phone] Encounter Details Date Type Department Care Team (Late st Contact Info) Description 07/19/2023 Orders Only External Location [address] [place] [address] Provider, External Social History Tobacco Use Types [...] Hospital Encounter [facility] [address] [place] [address] Sergo Bunn MD [address] [address] 11/16/2024 11:50 AM EDT - 11/16/2024 2:20 PM EDT Surgery [facility] [address] [place] [address] Sergo Bunn MD [address] [place] [address] ARTHROPLASTY, HIP, TOTAL, ANTERIOR APPROACH [05350 (CPT )] 12/01/2024 10:20 AM EDT Office Visit [facility] [address], [address] [place] [address] Letha Rivera PA [address] [place] [address] 12/28/2024 11:00 AM EDT Office Visit [facility] [address], [address] [place] [address] Jacek Gregory MD [address] [place] [address] 12/29/2024 11:10 AM EDT Office Visit [facility] [address], [address] [place] [address] Sergo Bunn MD [address] [place] [address] Scheduled Procedures Name Priority Associated Diagnoses Date/Ti me ARTHROPLASTY, HIP, TOTAL, ANTERIOR APPROACH Primary osteoarthritis of right hip 11/16/2024 11:50 AM EDT documented as of this encounter Procedures Procedure Name Priority Date/Time Associated Diagnosis Comments MR THORACIC OUTSIDE IMAGES 07/19/2023 8:13 AM EDT documented in this encounter Results * MR THORACIC OUTSIDE IMAGES (07/19/2023 8:13 AM EDT) Anatomical Region Laterality Modality Magnetic Resonan ce 07/19/2023 8:13 AM EDT us External Provider IMG MRI [...] documented as of this encounter Care Teams Brim Stiffener Relationship Specialty Start Date End Date Rachael Gregg APRN [address] [place] [address] PCP - General 07/10/23 documented as of this encounter
--- OUTSIDE RECORDS SUMMARY | 2024-10-27 12:04 | XMS_ITS | Clinical Summary ---
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 acetaminophen [id number] Sav Farnsworth BETHANECHOL CHLORIDE 10 MG TABS Take 1 tablet (10 mg total) by mouth in the morning and 1 tablet (10 mg total) at noon and 1 tablet (10 mg total) in the evening. bethanechol chloride [id number] Sav Farnsworth BISACODYL EC 5 MG TBEC Take 2 tablets (10 mg total) by mouth daily as needed for Constipation for up to 30 days. bisacodyl [id number] Sav Farnsworth CLONIDINE HCL 0.1 MG TABS Take 1 tablet (0.1 mg total) by mouth every 8 (eight) hours as needed . clonidine hcl [id number] Sav Farnsworth DIAZEPAM 5 MG TABS Take 1 tablet (5 mg total) by mouth every 8 (eight) hours as needed for up to 10 days. Max Daily Amount: 15 mg diazepam [id number] Sav Farnsworth DOCUSATE SODIUM 100 MG CAPS Take 1 capsule (100 mg total) by mouth in the morning and 1 capsule (100 mg total) before bedtime. Do all this for 10 days. docusate sodium [id number] Sav Farnsworth FAMOTIDINE 20 MG TABS Take 1 tablet (20 mg total) by mouth in the morning and 1 tablet (20 mg total) before bedtime. famotidine [id number] Sav Farnsworth HYDROCHLOROTHIAZIDE 12.5 MG TABS Take 1 tablet (12.5 mg total) by mouth in the morning. hydrochlorothiazide [id number] Sav Farnsworth METFORMIN HCL 500 MG TABS Take 1 tablet (500 mg total) by mouth 2 (two) times daily with breakfast and dinner for 30 days . metformin [id number] Sav Farnsworth METOPROLOL TARTRATE 50 MG TABS Take 1 tablet (50 mg total) by mouth in the morning and 1 tablet (50 mg total) before bedtime. metoprolol tartrate [id number] Sav Farnsworth OXYCODONE-ACETAMINOP HEN 10-325 MG TABS Take 1 tablet by mouth every 4 (four) hours as needed for up to 10 days . Max Daily Amount: 6 tablets oxycodone-acetaminop hen [id number] Sav Farnsworth PREDNISONE 10 MG TABS Take 2 tablets (20 mg total) by mouth daily for 3 days, THEN 1 tablet (10 mg total) daily for 3 days. . prednisone [id number] Sav Farnsworth TAMSULOSIN HCL 0.4 MG CAPS Take 1 capsule (0.4 mg total) by mouth in the morning. tamsulosin [id number] Sav Farnsworth AMLODIPINE BESYLATE 10 MG TABS Take 1 tablet (10 mg total) by mouth in the morning. amlodipine [id number] Sav Farnsworth Proventil HFA 90 mcg/actuation HFA aerosol inhaler Inhale 2 puffs by mouth via inhaler 2 (two) times daily as needed. albuterol sulfate [id number] Sav Farnsworth CYCLOBENZAPRINE HCL 10 MG TABS Take 1 tablet (10 mg total) by mouth 3 (three) times daily as needed for Muscle spasms. cyclobenzaprine [id number] Sav Farnsworth dapagliflozin 10 mg tablet Take 1 tablet (10 mg total) by mouth in the morning. dapagliflozin Sav Farnsworth GABAPENTIN 600 MG TABS Take 1 tablet (600 mg total) by mouth in the morning and 1 tablet (600 mg total) at noon and 1 tablet (600 mg total) in the evening. gabapentin [id number] Sav Farnsworth OMEPRAZOLE 20 MG CPDR Take 1 capsule (20 mg total) by mouth in the morning. omeprazole [id number] Sav Farnsworth Medications Administered No information available. Allergies, Adverse Reactions, Alerts Allergy Name Reaction Description Start Date Severity Statu s Provider IODINATED CONTRAST MEDIA Rash Moderate Acti ve Sav Farnsworth Results Date Name Value Unit Range Flag Description Clinical Lists Update: Prelo ad SEXUAL ACTIV yes Have you ever had vaginal intercourse [PhenX] ORALTOBACUSE Former Tobacco smoking status SMOK STATUS Current some day smoker Tobacco smoking status Plan of Care No information available. Procedures No information available. Vital Signs No information available. Immunizations No information available. Advance Directives No information available.
--- OUTSIDE RECORDS SUMMARY | 2024-10-27 12:04 | XMS_ITS | Encounter Summary ---
Author Organization [employer] ([place], [place], [place], [place]) Address [address] [place] [address] Care Team Providers Care Net Technical Architect Name Role Phone Rachael Gregg ИВАН Primary Care Provider [phone] Encounter Details Date Type Department Care Team (Late st Contact Info) Description 11/12/2023 Telephone [facility] Urology - [address] [place] [address] Eugene Benton MD [address] [facility] [address] [place] [address] Social History Tobacco Use Types Packs/Day Years Used Date Smoking Tobacco: Some Days Smokeless Tobacco: Former Chew Quit: 11/23/2019 Comments:Girlfriend states h e's never used smokeless tobacco Alcohol Use Standard Drinks/Week Comments Yes 3 (1 standard drink = 0.6 oz pur e alcohol) Occasionally Family and Community Support Answer Leo e Recorded Help with Day to Day Activities Not on file 04/25/2023 Feeling Lonely or Isolated Not on file 04/25 Educational Attainment Answer Date Wade rded Speak language other than Sinhala at home Not on file 04/25/2023 Want help with school or training Not on file 04/25/2023 Substance Use Answer Date Recorded Used prescription meds for non-medical reasons N ot on file 04/25/2023 Used illegal drugs past 12 months Not on file 04/25/2023 Sex and Gender Information Value Date Recorded Sex Assigned at Not on file Legal Sex Male 1:20 PM CDT Gender Identity Not on file Sexual Orientation Not on file documented as of this encounter Plan of Treatment Upcoming Encounters Date Type Department Care Team (Late st Contact Info) Description 01/18/2025 10:30 AM EDT Appointment [facility] [address] [facility] [address] [place] [address] Samantha Toledo, OYSTER GROWER [address] [place] [address] 01/18/2025 1:00 PM EDT Office Visit [facility] Pulmonology - [address] [facility] [address] [place] [address] Samantha Toledo, OYSTER GROWER [address] [place] [address] 01/26/2025 10:30 AM EDT [facility] Visit [facility] - [address] [facility] [address] [facility] [address] [place] [address] Xu Martinez MD [address] [facility] [address] [place] [address] documented as of this encounter Visit Diagnoses Not on filedocumented in this encounter Care Teams Net Technical Architect Relationship Specialty Start Date End Date Rachael Gregg, OYSTER GROWER [address] [place] [address] PCP - General Nurse Practitioner 07/19/23 documented as of this encounter
--- OUTSIDE RECORDS SUMMARY | 2024-10-27 12:05 | XMS_ITS | Encounter Summary ---
Author Organization Healthcare Address [address] [place] [address] Care Team Providers Care License Issuer Name Role Phone Rachael Gregg Andrew OATES Primary Care Provider [phone] Encounter Details Date Type Department Care Team (Latest Contact Info) Description 09/12/2024 Travel Social History Tobacco Use Types Packs/Day Years [...] Hospital Encounter [facility] [address] [place] [address] Sergo Bunn MD [address] [address] 11/16/2024 11:50 AM EDT - 11/16/2024 2:20 PM EDT Surgery [facility] [address] [place] [address] Sergo Bunn MD [address] [place] [address] ARTHROPLASTY, HIP, TOTAL, ANTERIOR APPROACH [72383 (CPT )] 12/01/2024 10:20 AM EDT Office Visit [facility] [address] [place] [address] Letha Rivera PA [address] [place] [address] 12/28/2024 11:00 AM EDT Office Visit [facility] [address] [place] [address] Jacek Gregory MD [address] [place] [address] 12/29/2024 11:10 AM EDT Office Visit [facility] [address] [place] [address] Sergo Bunn MD [address] [place] [address] Scheduled Procedures Name Priority Associated Diagnoses Date/Ti me ARTHROPLASTY, HIP, TOTAL, ANTERIOR APPROACH Primary osteoarthritis of right hip 11/16/2024 11:50 AM EDT documented as of this encounter Goals Goal Patient Goal Type Associated Problems Recent Progress Patient-Stated? Author Patient will verbalize understanding of orthotic wear , care and precautions. Occupational Therapy No Toña Brooks documented as of this encounter Visit Diagnoses Not on filedocumented in this encounter Additional Health Concerns Assessment Noted Time PHQ-9 Depression Total Score: 0 07/17/19 25 9:59 AM EDT A fall risk assessment has been complete d for the patient 08/24/2024 12:22 PM EDT A Body Mass Index follow-up plan has been documented for the patient 09/02/2024 8:52 AM EDT documented as of this encounter Care Teams License Issuer Relationship Specialty Start Date End Date Rachael Gregg APRN [address] [place] [address] PCP - General 07/10/23 documented as of this encounter
--- OUTSIDE RECORDS SUMMARY | 2024-10-27 12:05 | XMS_ITS | Encounter Summary ---
Author Organization Healthcare Address [address] [place] [address] Care Team Providers Care Potato Peeler Name Role Phone Rachael Gregg Andrew OATES Primary Care Provider [phone] Encounter Details Date Type Department Care Team (Latest Contact Info) Description 08/30/2024 Travel Social History Tobacco Use Types Packs/Day [...] [facility] [address] [place] [address] Sergo Bunn MD [address] [address] 11/16/2024 11:50 AM EDT - 11/16/2024 2:20 PM EDT Surgery [facility] [address] [place] [address] Sergo Bunn MD [address] [place] [address] ARTHROPLASTY, HIP, TOTAL, ANTERIOR APPROACH [[id number] (CPT )] 12/01/2024 10:20 AM EDT Office Visit [facility] [address], [address] [place] [address] Letha Rivera PA [address] [place] [address] 12/28/2024 11:00 AM EDT Office Visit [facility] [address] [place] [address] Jacek Gregory MD [address] [place] [address] 12/29/2024 11:10 AM EDT Office Visit [facility] [address] [place] [address] Sergo Bunn MD [address] [place] [address] Scheduled Procedures Name Priority Associated [...] documented as of this encounter Care Teams Potato Peeler Relationship Specialty Start Date End Date Rachael Gregg APRN [address] [place] [address] PCP - General 07/10/23 documented as of this encounter
--- OUTSIDE RECORDS SUMMARY | 2024-10-27 12:05 | XMS_ITS | Encounter Summary ---
Author Organization Healthcare Address [address] [place] [address] Care Team Providers Care Insulation Extruder Operator Name Role Phone Pcp, No Primary Care Provider Rachael Urrutia APRN Primary Care Provider [phone] Encounter Details Date Type Department Care Team (Late st Contact Info) Description 08/10/2022 Orders Only External Location [address] [place] [address] Provider, External Social History Tobacco Use Types [...] Description 11/16/2024 11:50 AM EDT Hospital Encounter [facility] S Operating Room [address] [place] [address] Sergo Bunn MD [address] [place] [address] 11/16/2024 11:50 AM EDT - 11/16/2024 2:20 PM EDT Surgery [facility] Operating Room [address] [place] [address] Sergo Bunn MD [address] [place] [address] ARTHROPLASTY, HIP, TOTAL, ANTERIOR APPROACH [[id number] (CPT )] 12/01/2024 10:20 AM EDT Office Visit [facility] [address] [place] [address] Letha Rivera PA [address] [place] [address] 12/28/2024 11:00 AM EDT Office Visit [facility] [address] [place] [address] Jacek Gregory MD [address] [place] [address] 12/29/2024 11:10 AM EDT Office Visit [facility] [address] [place] [address] Sergo Bunn MD [address] [place] [address] Scheduled Procedures Name Priority Associated Diagnoses Date/Ti me ARTHROPLASTY, HIP, TOTAL, ANTERIOR APPROACH Primary osteoarthritis of right hip 11/16/2024 11:50 AM EDT documented as of this encounter Procedures Procedure Name Priority Date/Time Associated Diagnosis Comments CT NEURO OUTSIDE IMAGES 08/10/2022 8:20 AM EDT documented in this encounter Results * CT NEURO OUTSIDE IMAGES (08/10/2022 8:20 AM EDT) Anatomical Region Laterality Modality Computed Tomogra phy 08/10/2022 8:20 AM EDT us External Provider IMG CT PROCEDURES Final Result documented in this encounter Visit Diagnoses Not on filedocumented in this encounter Care Teams Insulation Extruder Operator Relationship Specialty Start Date End Date Pcp, [place] [address] PCP - General Family Medicine 06/12/23 07/09/23 Rachael Gregg APRN [address] [place] [address] PCP - General 07/10/23 documented as of this encounter
--- OUTSIDE RECORDS SUMMARY | 2024-10-27 12:05 | XMS_ITS | Encounter Summary ---
Author Organization Healthcare Address [address] [place] [address] Care Team Providers Care Fraternity House Cook Name Role Phone Pcp, No Primary Care Provider Rachael Urrutia APRN Primary Care Provider [phone] Encounter Details Date Type Department Care Team (Late st Contact Info) Description 09/25/2022 Orders Only External Location [address] [place] [address] Provider, External Social History Tobacco Use Types [...] Description 11/16/2024 11:50 AM EDT Hospital Encounter [facility] S Operating Room [address] [place] [address] Sergo Bunn MD [address] [place] [address] 11/16/2024 11:50 AM EDT - 11/16/2024 2:20 PM EDT Surgery [facility] Operating Room [address] [place] [address] Sergo Bunn MD [address] [place] [address] ARTHROPLASTY, HIP, TOTAL, ANTERIOR APPROACH [03507 (CPT )] 12/01/2024 10:20 AM EDT Office Visit Medical [facility] [address] [place] [address] Letha Rivera PA [address] [place] [address] 12/28/2024 11:00 AM EDT Office Visit [facility] [address] [place] [address] Jacek Gregory MD [address] [place] [address] 12/29/2024 11:10 AM EDT Office Visit Medical [facility] [address] [place] [address] Sergo Bunn MD [address] [place] [address] Scheduled Procedures Name Priority Associated Diagnoses Date/Ti me ARTHROPLASTY, HIP, TOTAL, ANTERIOR APPROACH Primary osteoarthritis of right hip 11/16/2024 11:50 AM EDT documented as of this encounter Procedures Procedure Name Priority Date/Time Associated Diagnosis Comments XR OUTSIDE IMAGES 09/25/2022 12:18 PM EDT documented in this encounter Results * XR OUTSIDE IMAGES (09/25/2022 12:18 PM EDT) Anatomical Region Laterality Modality Radiographic Jennifer ging 09/25/2022 12:1 8 PM EDT us External Provider IMG XR PROCEDURES Final Result documented in this encounter Visit Diagnoses Not on filedocumented in this encounter Care Teams Fraternity House Cook Relationship Specialty Start Date End Date Pcp, [place] [address] PCP - General Family Medicine 06/12/23 07/09/23 Rachael Gregg APRN [address] [place] [address] PCP - General 07/10/23 documented as of this encounter
--- OUTSIDE RECORDS SUMMARY | 2024-10-27 12:05 | XMS_ITS | Encounter Summary ---
Author Organization Healthcare Address [address] [place] [address] Care Team Providers Care Sanitation Worker Name Role Phone Rachael Gregg Andrew OATES Primary Care Provider [phone] Encounter Details Date Type Department Care Team (Late st Contact Info) Description 09/16/2024 Orders Only Medical Office [facility] [address] [place] [address] Sergo Bunn MD [address] [place] [address] Social History Tobacco Use Types Packs/Day Years [...] Encounter [facility] Operating Room [address] [place] [address] Sergo Bunn MD [address] [place] [address] 11/16/2024 11:50 AM EDT - 11/16/2024 2:20 PM EDT Surgery [facility] Operating Room [address] [place] [address] Sergo Bunn MD [address] [place] [address] ARTHROPLASTY, HIP, TOTAL, ANTERIOR APPROACH [[id number] (CPT )] 12/01/2024 10:20 AM EDT Office Visit Medical [facility] [address] [place] [address] Letha Rivera PA [address] [place] [address] 12/28/2024 11:00 AM EDT Office Visit [facility] [address] [place] [address] Jacek Gregory MD [address] [place] [address] 12/29/2024 11:10 AM EDT Office Visit [facility] [address] [place] [address] Sergo Bunn MD [address] [place] [address] Scheduled Procedures Name Priority Associated Diagnoses Date/Ti me ARTHROPLASTY, HIP, TOTAL, ANTERIOR APPROACH Primary osteoarthritis of right hip 11/16/2024 11:50 AM EDT documented as of this encounter Goals Goal Patient Goal Type Associated Problems Recent Progress Patient-Stated? Author Patient will verbalize understanding of orthotic wear , care and precautions. Occupational Therapy Toña Randolph documented as of this encounter Visit Diagnoses [...] documented as of this encounter Care Teams Sanitation Worker Relationship Specialty Start Date End Date Rachael Gregg APRN [address] [place] [address] PCP - General 07/10/23 documented as of this encounter
--- OUTSIDE RECORDS SUMMARY | 2024-10-27 12:05 | XMS_ITS | Encounter Summary ---
Author Organization Healthcare Address [address] [place] [address] Care Team Providers Care Engine Boss Name Role Phone GreggRachael ferguson Andrew OATES Primary Care Provider [phone] Encounter Details Date Type Department Care Team ([facility] st Contact Info) Description 07/13/2024 Results Follow-Up Medical Office Building [facility] [address], [address] [place] [address] Jacklyn Hogan, RN [facility] Social History Tobacco Use Types Packs/Day Years [...] on file documented as of this encounter Functional Status * Over the past 2 weeks, how often have you been bothered by any of the following problems? Question Answer Date of Assessment Author Little interest or pleasure in doing things Not at all 07/16/2024 9:59 AM EDT Teresa Raya Feeling down, depressed, or hopeless Not at all 07/16/2024 9:59 AM EDT Teresa Gu Patient Health Questionnaire-2 Score 0 07/16/2024 9:59 AM EDT Teresa Mcgowan * Question Answer Date of Assessment Author Trouble falling or staying asleep, or sleeping too much Not at all 07/16/2024 9:59 AM EDT Teresa Gu Feeling tired or having little energy Not at all 07/16/2024 9:59 AM EDT Teresa Gu Poor appetite or overeating Not at all 07/16/2024 9: 59 AM EDT Teresa Gu Feeling bad about yourself - or that you are a failure or have let yourself or your family down Not at all 07/16/2024 9:59 AM SAGET Teresa Gu Trouble concentrating on things, such as reading the newspaper or watching television Not at all 07/16/2024 9:59 AM SAGET Teresa Gu Moving or speaking so slowly that other people could have noticed? Or the opposite - being so fidgety or restless that you have been moving around a lot more than usual. Not at all 07/16/2024 9:59 AM SAGET Teresa Gu Thoughts that you would be better off or hurting yourself in some way Not at all 07/16/2024 9:59 AM SAGET Teresa Novak Patient Health Questionnaire-9 Score 0 07/16/2024 9:59 AM EDT Teresa Mcgowan * Calculated C-SSRS Risk Score (Lifetime/Recent) Answer Date of Assessment Author No Risk Indicated 07/16/2024 9:59 AM EDT Teresa Chong * If you checked off any problems on this questionnaire so far, Question Answer Date of Assessment Author How difficult have these problems made it for you to do your work, take care of things at home, or get along with other people? Not difficult at all 07/16/2024 9:59 AM SAGET Teresa Novak * Question Answer Date of Assessment Author 1. Wish to be (Past 1 Month) No 07/16/2024 9:59 AM EDT Teresa uG 2. Non-Specific Active Suicidal Thoughts (Past 1 Month) No 07/16/2024 9:59 AM EDT Teresa Gu 6. Suicidal Behavior (Lifetime) No 07/16/2024 9:59 AM EDT Teresa Gu documented as of this encounter Plan of Treatment Upcoming Encounters Date Type Department Care Team (Latest Contact Info) Description 11/16/2024 11:50 AM EDT Hospital Encounter [facility] Operating Room [address] [place] [address] Sergo Bunn MD [address] [place] [address] 11/16/2024 11:50 AM EDT - 11/16/2024 2:20 PM EDT Surgery [facility] Operating Room [address] [place] [address] Sergo Bunn MD [address] [place] [address] ARTHROPLASTY, HIP, TOTAL, ANTERIOR APPROACH [82071 (CPT )] 12/01/2024 10:20 AM EDT Office Visit Medical [facility] [address] [place] [address] Letha Rivera PA [address] [place] [address] 12/28/2024 11:00 AM EDT Office Visit [facility] [address] [place] [address] Jacek Gregory MD [address] [place] [address] 12/29/2024 11:10 AM EDT Office Visit Medical Office [facility] [address] [place] [address] Sergo Bunn MD [address] [facility] [address] [place] [address] Scheduled Procedures Name Priority Associated [...] Assessment Noted Time PHQ-9 Depression Total Score: 2 07/11/19 25 11:14 AM EDT A fall risk assessment has been complete d for the patient 07/10/2024 11:14 AM EDT A Body Mass Index follow-up plan has been documented for the patient 07/10/2024 1:10 PM EDT documented as of this encounter Care Teams Engine Boss Relationship Specialty Start Date End Date Rachael Gregg, MOTOR SCOOTER MECHANIC [address] [place] [address] PCP - General 07/10/23 documented as of this encounter
--- OUTSIDE RECORDS SUMMARY | 2024-10-27 12:05 | XMS_ITS | Referral Summary ---
Author Organization [facility] ([place], [place], [place], [place]) Address [address] [place] [address] Care Team Providers Care Procurement Professional Name Role Phone CristinoRachael ИВАН Primary Care Provider [phone] Allergies Active Allergy Reactions Criticality Noted Date Comments Iodinated Contrast Media Rash,Other (See Comments) Low 02/17/2019 Reports mild rash occurred Iodine Rash Low 08/21/2023 Medications gabapentin (NEURONTIN) 600 MG tablet Take 1 tablet (600 mg total) by mouth 3 (three) times daily. 06/29/2022 Active albuterol HFA (VENTOLIN HFA) 90 mcg/actuation inhaler Inhale 2 puffs by mouth 2 (two) times daily as needed. Active omeprazole (PriLOSEC) 20 MG capsule Take 1 capsule (20 mg total) by mouth daily. 07/23/2022 Active baclofen (LIORESAL) 10 MG tablet Take 1 tablet (10 mg total) by mouth 3 (three) times daily. 09/24/2023 Active Jardiance 10 mg tablet Take 1 tablet (10 mg total) by mouth daily. 10/31/2023 Active hydroCHLOROthia zide 12.5 MG tablet Take 1 tablet (12.5 mg total) by mouth daily. 10/23/2023 Active HYDROcodone-elisabeth taminophen (NORCO 7.5-325) 7.5-325 mg per tablet 3 (three) times a day if needed. Active irbesartan (AVAPRO) 150 MG tablet Take 1 tablet (150 mg total) by mouth daily. Active loratadine (CLARITIN) 5 mg chewable tablet Take 1 tablet (5 mg total) by mouth. Active meloxicam (MOBIC) 7.5 MG tablet Take 1 tablet (7.5 mg total) by mouth daily. 10/28/2023 Active metoprolol tartrate (LOPRESSOR) 50 MG tablet Take 1 tablet (50 mg total) by mouth 2 (two) times daily. Active NIFEdipine (ADALAT CC) 60 MG 24 hr tablet Take 1 tablet (60 mg total) by mouth daily. 10/23/2023 Active oxyCODONE-aceta minophen (PERCOCET) 7.5-325 mg per tablet 10/24/2023 Active rosuvastatin (CRESTOR) 20 MG tablet Take 1 tablet (20 mg total) by mouth nightly. Active tadalafiL (CIALIS) 5 MG tablet Take 1 tablet (5 mg total) by mouth daily. Active DULoxetine (CYMBALTA) 30 MG capsule Take 1 capsule (30 mg total) by mouth daily. 01/13/2024 Active tamsulosin (FLOMAX) 0.4 mg cap 24 hr capsule Take 1 capsule (0.4 mg total) by mouth daily. 90 capsule 3 07/21/2024 Active tamsulosin (FLOMAX) 0.4 mg cap 24 hr capsule Take 1 capsule (0.4 mg total) by mouth daily. 30 capsule 07/21/2024 Active Active Problems Problem Noted Date Diagnosed Date Close exposure to COVID-19 virus 12/19/2023 Daytime somnolence 12/19/2023 Dyspnea 12/19/2023 Encounter for general adult medical examination without abnormal findings 12/19/2023 Ex-smoker 12/19/2023 Left arm numbness 12/19/2023 MONE (obstructive sleep apnea) 12/19/2023 Restless sleeper 12/19/2023 S/P carpal tunnel release 12/19/2023 S/P knee surgery 12/19/2023 Snoring 12/19/2023 Hyperglycemia 12/19/2023 HTN (hypertension) 12/19/2023 Chronic pain 11/19/2023 Clumsiness 08/21/2023 Gait disturbance 08/21/2023 Numbness and tingling of hand 08/21/2023 Contracture of right elbow 07/30/2023 Cervical radiculopathy 05/01/2023 Carpal tunnel syndrome of right wrist 05/01/2023 Cubital tunnel syndrome on right 05/01/2023 Lumbar spondylosis 08/02/2022 Low back pain 07/30/2022 Anxiety 07/30/2022 Osteoarthritis of right hip 05/21/2022 Overweight 05/21/2022 Cervical radiculitis 05/21/2022 Cervical spondylosis 05/21/2022 Lumbar radiculopathy 05/21/2022 Cervical stenosis of spinal canal 05/21/2022 Diabetes 10/23/2020 Neck pain 03/20/2020 Encounter for postoperative care 04/29/2019 High blood pressure 06/23/2017 Acid reflux 12/25/2015 Social History Tobacco Use Types Packs/Day Years Used Date Smoking Tobacco: Some Days Smokeless Tobacco: Former Chew Quit: 11/23/2019 Tobacco Cessation:Ready to Q uit: Not Asked; Counseling Given: Not Answered Alcohol Use Standard Drinks/Week Comments Yes 3 (1 standard drink = 0.6 oz pur e alcohol) Occasionally Family and Community Support Answer Leo e Recorded Help with Day to Day Activities Not on file 04/25/2023 Feeling Lonely or Isolated Not on file 04/25 Educational Attainment Answer Date Wade rded Speak language other than Tajik at home Not on file 04/25/2023 Want [...] Sign Reading Time Taken Comments Blood Pressure 128/82 07/21/2024 10:40 AM EDT Pulse 83 07/21/2024 10:40 AM EDT Temperature 36.2 C (97.1 F) 01/16/2024 1:21 PM EDT Respiratory Rate 16 01/16/2024 1:21 PM EDT Oxygen Saturation 96% 01/16/2024 1:21 PM EDT Inhaled Oxygen Concentration - - Weight 100.7 kg (222 lb) 07/21/2024 10:40 AM EDT Height 180.3 cm (5' 11 ) 07/21/2024 10:40 AM EDT Body Mass Index 30.96 07/21/2024 10:40 AM EDT Plan of Treatment Upcoming Encounters Date Type Department Care Team (Late st Contact Info) Description 01/18/2025 10:[address] [facility] CT - [facility] [address] [facility] [address] [place] [address] Samantha Toledo APRN [address] [place] [address] 01/18/2025 1:00 PM EDT Office Visit [facility] Pulmonology - [facility] [address] [place] [address] Samantha Toledo, CARPENTER REFRIGERATOR [address] [place], [place] [address] 01/26/2025 10:30 AM EDT Office Visit [facility] Urology - [facility] [address] [facility] [address] [place] [address] Xu Martinez MD [address] [facility] [address] [facility] [address] [place] [address] Medical Devices Implanted Type Area Warehouse Supervisor Device Identifier Shelf Expiration Date Model / Serial / Lot Fibergraft Mtrx 12.5cc [id number] - [id number] Implanted:Qty: 1 on 08/02/2022 by Alessandra Whitley MD at [facility] IMPLANTS N/A: Back [employer] 05/24/2024 [id number] / / [id number] Bone Fibers 5.0cc Pliafx Crtcl -1799- - [id number] Implanted:Qty: 1 on 08/02/2022 by Alessandra Whitley MD at [facility] IMPLANTS N/A: Back LIFENET:LIFENET TRANSPLANT SRV 04/04/2027 -1799-08 / [id number] / Bone Vivigen Formable Cell 5cc [facility]1599-002 - [id number] Implanted:Qty: 1 on 08/02/2022 by Alessandra Whitley MD at [facility] IMPLANTS N/A: Back LIFENET:LIFENET TRANSPLANT SRV 07/12/2023 [id number] / [id number] / Scr Spne Parrish Fix 6x50mm - [id number] Implanted:Qty: 6 on 08/02/2022 by Alessandra Whitley MD at [facility] IMPLANTS N/A: Back J &J:DEPUY:DEPUY SPINE / / Mis Yadira Ply Scrw Set Ti - [id number] Implanted:Qty: 6 on 08/02/2022 by Alessandra Whitley MD at [facility] IMPLANTS N/A: Back J &J:DEPUY:DEPUY SPINE / / Cage Exp Intbody 10x25 [id number] - [id number] Implanted:Qty: 2 on 08/02/2022 by Alessandra Whitley MD at [facility] IMPLANTS N/A: Back J &J:DEPUY:DEPUY SPINE [id number] / [id number] / Csar Pre Load 65mm 179-71-065 - [id number] Implanted:Qty: 2 on 08/02/2022 by Alessandra Whitley MD at [facility] IMPLANTS N/A: Back J &J:DEPUY:DEPUY SPINE [id number] / [id number] / Procedures Procedure Name Priority Date/Time Associated Diagnosis Comments HIV 1/2 AG/AB COMBO Routine 08/08/2022 7 :14 PM EDT HEMOGLOBIN A1C Routine 07/30/2022 9:32 AM EDT Preop testing from Last 3 Months or Most Recently Relevant to Health Maintenance Results * HIV 1/2 AG/AB Combo (08/08/2022 7:14 PM EDT) HIV-1 P24 Antigen Nonreactive Nonreactive 08/08/2022 9:23 PM EDT [facility] Comment: The Combo HIV procedure is a fourth generation HIV test which detects BOTH p24 antigen AND HIV antibodies to HIV virus types 0, 1, and 2. A reactive result does not distinguish between the antigen or the antibody and does not specify which antibody is present. Additional testing is required to differentiate the component causing the reactive result. Biotin supplements can cause clinically significant incorrect lab results. The FDA has seen an increase in the number of adverse events related to biotin interference with lab tests. Blood Venipuncture / Unknown 08/08/2022 7:14 PM EDT 08/08/2022 7:54 PM EDT us Cuate Nunn MD LAB BLOOD ORDERABLES Final Res ult [facility] [address] [phone] * Hemoglobin A1c (07/30/2022 9:32 AM EDT) Hemoglobin A1C 6.2 % 07/30/2022 12:34 PM EDT [facility] Comment: Hemoglobin A1C levels are related to mean glucose during the preceding 2-3 months. Less than 7% demonstrates glycemic control in diabetic patients. Hemoglobin AlC % Suggested Diagnosis > or = 6.5 Diabetic 5.7 - 6.4 Prediabetic <5.7 Non-diabetic eAVG Glucose 131.24 mg/dL 07/30/2022 12:34 PM EDT [facility] Blood Venipuncture / Unknown 07/30/2022 9:32 AM EDT 07/30/2022 10:13 AM EDT us Indra Rockwell MD LAB BLOOD ORDERABLES Final R esult [facility] [address] [place] [address], [facility] [phone] from Last 3 Months or Most Recently Relevant to Health Maintenance Insurance [facility] Advance Directives For more information, please contact: [phone] Documents on File Type Date Recorded Patient Insights Strategist Expl anation Advance Directives and Livin g Will 07/30/2022 8:00 AM * Full Code (Latest Code Status on File) Date Activated Date Inactivated Comments 08/02/2022 3:30 PM 08/13/2022 4:14 PM Care Teams Procurement Professional Relationship Specialty Start Date End Date Rachael Gregg, ИВАН [address] [place] [address] PCP - General Nurse Practitioner 07/19/23
--- OUTSIDE RECORDS SUMMARY | 2024-10-27 12:05 | XMS_ITS | Encounter Summary ---
Author Organization Healthcare Address [address] [place] [address] Care Team Providers Care Surveying Crew Rodman Name Role Phone Pcp, No Primary Care Provider Rachael Urrutia APRN Primary Care Provider [phone] Encounter Details Date Type Department Care Team (Late st Contact Info) Description 08/08/2022 Orders Only External Location [address] [place] [address] Provider, External Social History Tobacco Use Types [...] Description 11/16/2024 11:50 AM EDT Hospital Encounter [facility] S Operating Room [address] [place] [address] Sergo Bunn MD [email or web address] [place] [address] 11/16/2024 11:50 AM EDT - 11/16/2024 2:20 PM EDT Surgery [facility] S Operating Room [address] [place] [address] Sergo Bunn MD [address] [place] [address] ARTHROPLASTY, HIP, TOTAL, ANTERIOR APPROACH [95430 (CPT )] 12/01/2024 10:20 AM EDT Office Visit [facility] [address] [place] [address] Letha Rivera PA [address] [place] [address] 12/28/2024 11:00 AM EDT Office Visit [facility] [address] [place] [address] Jacek Gregory MD [address] [place] [address] 12/29/2024 11:10 AM EDT Office Visit [facility] [address] [place] [address] Sergo Bunn MD [address] [place] [address] Scheduled Procedures Name Priority Associated Diagnoses Date/Ti me ARTHROPLASTY, HIP, TOTAL, ANTERIOR APPROACH Primary osteoarthritis of right hip 11/16/2024 11:50 AM EDT documented as of this encounter Procedures Procedure Name Priority Date/Time Associated Diagnosis Comments CT NEURO OUTSIDE IMAGES 08/08/2022 12:17 PM EDT documented in this encounter Results * CT NEURO OUTSIDE IMAGES (08/08/2022 12:17 PM EDT) Anatomical Region Laterality Modality Computed Tomogra phy 08/08/2022 12:1 7 PM EDT us External Provider IMG CT PROCEDURES Final Result documented in this encounter Visit Diagnoses Not on filedocumented in this encounter Care Teams Surveying Crew Rodman Relationship Specialty Start Date End Date Pcp, [place] [address] PCP - General Family Medicine 2/28/24 3/26/24 Rachael Gregg APRN [address] [place] [address] PCP - General 07/10/23 documented as of this encounter
--- OUTSIDE RECORDS SUMMARY | 2024-10-27 12:05 | XMS_ITS | Continuity of Care Document ---
Author Organization [facility] Address [address] [facility] [address] [place] [address] Care Team Providers Care Juvenile Counselor Name Role Phone Unavailable Primary Care Provider Unavailabl e Assessment Encounter Date Assessment Date Assessment LastModified by Organization Details LastModified Time 10/08/2024 10/08/2024 Interval history : Mr. Chan [...] days for further evaluation and treatment planning. [email or web address] Not available 10/08/2024 11:26:12 Plan of Treatment Reminders Order Date Submit Date Provider Last Modified By Organization Details Last Modified Time Details Appointments FOLLOW UP 15 2024 11:15A Cindy VÁSQUEZ APRN Not available Not available Not available Lab drug screen, urine - Qualitati ve LCMS Screen Panel 2024 025 [facility], [facility], [address] [place] [address], [id number], 10/13/2024 11:25:06 Referral None recorded. Procedures None recorded. Surgeries None recorded. Imaging None recorded. Medication Orders gabapenti n 800 mg tablet 2024 025 [facility], [address] [place] [address], [id number], 10/08/2024 11:37:54 ondansetr on 8 mg disintegr ating tablet 2024 025 [facility], [address] [place] [address], [id number], 10/08/2024 11:37:53 tizanidin e 4 mg tablet 2024 025 [facility], [address] [place] [address], [id number], 10/08/2024 11:37:53 Percocet 7.5 mg-325 mg tablet 2024 025 [facility], [address] [address] [place], [id number], 10/09/2024 16:45:22 Percocet 7.5 mg-325 mg tablet 2024 025 [facility], [address] [address] [place], [id number], 10/08/2024 11:44:31 Patient TargetsNo targets recorded. Patient InstructionsNo instructions recorded. Reason for Referral None Reported. Problems Name Problem SNOMED Code Status Onset Date Resolution Date Notes Provider Name and Address Organization Details Recorded Time Lumbar spondylos is 899202203 Active 2023 lilibeth fonseca null [place] - [facility] 4 13:40:34 Chronic pain 66506991 Active 2023 Katelynn Hoffmann null, [place] - [facility] 4 11:38:23 Cervical radiculop athy 09267289 Active 2023 POOJA WORTHY [address] [place] [address], [phone] [facility] [place] - [facility] 4 12:48:25 Nausea 732730228 Active 2024 Zelda salinas null [place] - [facility] 5 10:55:51 Myofascia l pain 464383356 Active 2024 Zelda zheng, [place] - [facility] 5 10:55:51 Postopera tive care Completed 201903/21/2020 Gayle zheng [place] - [facility] 0 15:02:31 Neck pain 76887961 Active 2019 Gayle Rabago null, [place] - [facility] 0 15:02:48 Overweigh t 619196863 Active 2022 denis mendenhall null, [place] - [facility] 3 13:36:34 Spinal stenosis in cervical region 72172339 Active 2022 denis mendenhall null, [place] - [facility] 3 13:36:41 Osteoarth ritis of right hip joint 82422002039 9107 Active 2022 denis mendenhall null, [place] - [facility] 3 13:36:41 Lumbar radiculop athy 589721421 Active 2022 denis mendenhall null, [place] - [facility] 3 13:36:41 Cervical spondylos is 609142820 Active 2022 denis mendenhall null, [place] - [facility] 3 13:36:41 Cervical radiculit is 86552736 Active 2022 denis mendenhall null, [place] - [facility] 3 13:36:41 Problem Notes None recorded. Procedures Surgical History Date Name Laterality Status Provider Name and Address Organization Details Recorded Time 3 lumbar spinal fusion completed Trisha Baez [place] - [facility] 09/25/2022 08:38:25 cervical laminectomy completed Gayle Rabago [place] - [facility] 03/21/2020 15:03:44 Knee Surgery completed judy seaed [place] - [facility] 05/18/2020 09:13:36 Carpal Tunnel Release completed judy saeed [place] - [facility] 05/18/2020 09:13:36 Imaging Results None recorded. Procedure Notes None recorded. Medical Equipment None Reported. Allergies Allergen ID Allergen Name Allergen Category Reaction Reaction Severity Criticality Documentation Date Start Date Code Code System Note Provider Name and Address Organization Details Recorded Time 154013 Product containin g glucocort icoid (product) medicatio n Not available Not available Not available 03/21/2020 25909 6006 SNOMED Gayle Rabago null, [place] - [facility] 0 14:58:46 402011 iodine medicatio n rash Not available Not available 05/18/2020 5933 RxNorm judy zheng [place] - [facility] 1 09:13:08 Medications Name Sig Start Date [...] completed Not Available Not Available Not Available Nyla Reilly 28 gauge 05/28 completed Not Available Not [...] Updated DateTime 10/08/2024 182.88 cm 30.1 kg/m2 739300.51 g Zelda [facility] 10/08/2024 11:03:46 Social History Question Answer Notes LastModified by Organizat ion Details LastModified Time Tobacco Smoking Status Current Some Day Smoker judy zheng [facility] 05/18/2020 09:13:29 Do You Have An Advance Directive? No [email or web address] Information n ot available 01/26/2022 What Is Your Level Of Caffeine Consumption? Moderate Information not available 05/18/2020 How Much Tobacco Do You Chew? None Information not available 05/18/2020 In The 14 Days Before Symptom Onset, Have You Had Close Contact With A Laboratory-confirm ed COVID-19 While That Case Was Ill? No [email or web address] Information n ot available 05/22/2022 In The 14 Days Before Symptom Onset, Have You Had Close Contact With A Person Who Is Under Investigation For COVID-19 While That Person Was Ill? No [email or web address] Information not available 05/22/2022 Are You Deaf Or Do You Have Serious Difficulty Hearing? No Information not available 05/18/2020 What Type Of Diet Are You Following? REGULAR [email or web address] Information n ot available 01/26/2022 What Is The Highest Grade Or Level Of School You Have Completed Or The Highest Degree You Have Received? EQ55881-7 [email or web address] Information not available 01/26/2022 How Many Times Per Week Do You Exercise? 1-2 Times Per Week Information not available 07/23/2022 Hard Of Hearing Or Deaf In One Or Both Ears? No Information not available 05/18/2020 Disability No [email or web address] Information n ot available 03/21/2020 Marital Status Single Informatio n not available 05/18/2020 Do You Have A Medical Power Of Patch Machine Operator? No [email or web address] Information not available 05/28/2023 What Was The Date Of Your Most Recent Tobacco Screening? 09/24/2023 [email or web address] Information not available 09/24/2023 What Is Your Relationship Status? Single [email or web address] Information not available 01/26/2022 At What Age [...] alcohol? Less than 1 time per week [email or web address] Information not available 05/22/2022 Do you use any illicit or recreational drugs? No Information not available 05/28/2022 What is your level of alcohol consumption? Occasional Information not available 05/18/2020 Are you currently employed? Yes Information not available 01/26/2022 Do you have difficulty doing errands alone? No Information not available 05/18/2020 What is your occupation? full-time Information not available 05/18/2020 Do you have difficulty dressing or bathing? No Information not available 05/18/2020 What is your exercise level? Occasional [email or web address] Information not available 01/26/2022 Mental Status Question Answer Note LastModified by Organization D etails LastModified Time Do you have difficulty concentrating, remembering or making decisions? No Information no t available 05/18/2020 Family History Nothing Reported. Medical History Condition Response Bipolar Disease N Coronary Artery Disease N Gout N Seizure Disorder N Thyroid Disease N Atrial Fibrillation N Hernia N Head Trauma/Injury N COPD N Depression N Anxiety Disorder Y Acid Reflux (GERD) Y Cancer N Skin Disorder N Stroke N High Cholesterol N Liver Disease N Rheumatoid Arthritis N Fibromyalgia N Headaches N Autoimmune Disease N Kidney Disease N Osteoarthritis N Neurosurgery N DVT N Peptic Ulcer Disease N Anemia N Heart Attack (RI) N Diabetes Y Cardiomyopathy N Bleeding Disorder N CHF N AIDS/HIV N Inflammatory Bowel Disease N Dementia N Asthma N Substance Abuse N Sleep Apnea N Hepatitis N Heart Disease N Pulmonary Embolism N Chronic Low Back Pain Y Hypertension Y Osteoporosis N Past Encounters Encounter ID Performer Location Encounter Start Date Encounter Closed Date Diagnosis/Indication Diagnosis SNOMED-CT Code Diagnosis ICD10 Code Diagnosis Note [id number] ADY MTZ MD [address] [address] Susanne Chew,[facility] [address] [place] [address] 10/08/2024 10:54:10 10/08/2024 11:22:09 Chronic pain 51603148 G89.29 Lumbar radiculopathy 128 129079 M54.16 Use of the medication does allow the patient to perform the activities of daily living and function without being in severe pain. Lumbar spondylosis 54192 0009 M47.816 Cervical radiculopathy 19269458 M54.12 Cervical spondylosis 387 292560 M47.812 Long-term drug therapy 811783271 Z79.899 UDS TODAY 10/08/2024 LAST DOSE PERCECET AND GABAPENTIN 7AM 10/08/2024 Myofascial pain 07717655 9 M79.18 Nausea 778099290 R11.0 Health Concerns Section Related Observation LastModified by Organization Detai ls LastModified Time None Recorded Concern Status LastModified by Organization Details LastModified Time None Recorded Payers Encounter Date Sequence Insurance Name Policy Number Policy Bloom Covered Member ID Bloom Member ID Guarantor Name 10/08/2024 2 [facility] [place] Lewis Chan [id number] Lewis Chan Notes Date Note Type Note Provider Name and Address Organization Details Recorded Time 10/08/2024 text/html HipReported bypatient.Location: bilateral Quality:throbbing; shooting, [...] to bathe/groom without assistance.; Able to complete design coordinator without much difficulty.; Walking without assistance or significant difficulty; Working without restriction.; Exercising on a regular basis.; Participating in recreation on a regular basis. Prior Imaging:MRI Interventional Treatment History:Patient states he has had several injections with Dr. Vigil without benefit. Physical Therapy:Facility: ([facility]); completed all recommended PT visits; complete more than 6weeks; Patient was doing PT with Suman Mckeon with minimal benefit. Current Analgesics:Oxycodon e effective; Gabapentin effective; Reported pain relief- 50% for 3 hours; Last dose: was this morning Percocet & Gabapentin- 8am 10/08/2024 Medications History:Muscle relaxants: (Cyclobenzaprine (effective)); Neuropathics: (Gabapentin (effective)); Opioid pain medications: ([place] (not effective)) Adverse Reactions:No nausea; No vomiting; [...] no other changes at this time. CANDELARIA VÁSQUEZ, DRAY TRUCK DRIVER [address] [place], [address], [facility] 10/08/2024 12:39:44
--- OUTSIDE RECORDS SUMMARY | 2024-10-27 12:05 | XMS_ITS | Clinical Summary ---
Author Organization [employer] ([place], [place], [place], [place]) Address [address] [place] [address] Care Team Providers Care Slitter Scorer Cut Off Operator Name Role Phone CristinoRachael ИВАН Primary Care Provider Allergies Active Allergy Reactions Criticality Noted Date [...] High blood pressure 06/23/2017 Acid reflux 12/25/2015 Family History Medical History Relation Name Comments Diabetes Other High blood pressure Other Relation Name Status Comments Other Social History Tobacco Use Types Packs/Day [...] Date Wade rded Speak language other than Nicaraguan at home Not on file 04/25/2023 Want [...] Info) Description 01/18/2025 10:30 AM EDT Appointment [facility] CT - [facility] [address] [address] [place] [address] Samantha Toledo APRN [address] [facility] [address] [place] [address] 01/18/2025 1:00 PM EDT Office Visit [facility] Pulmonology - [facility] [address] [facility] [address] [place] [address] Samantha Toledo, ИВАН [address] [facility] [address] [facility] [address] [place] [address] 01/26/2025 10:30 AM EDT Office Visit [facility] Urology - [facility] [address] [facility] [address] [facility] [address] [place] [address] Xu Martinez MD [address] [facility] [address] [place] [address] Health Maintenance Due Date Last Done Comments CT Colonography 1969 Colonoscopy 1969 Colorectal Cancer Screening 1969 Diabetic Kidney Health Evaluation (KED) 1969 FOBT/FIT 1969 Fit-DNA (Cologuard) 1969 Sigmoidoscopy 1969 Diabetic Eye Exam 09/05/1979 Depression Screening (12+) 1981 Tobacco Cessation Counseling and Screening (12+) 1981 Hepatitis C Screening 09/05/1987 DTAP/TDAP/TD VACCINES (1 - Tdap) 1988 Pneumococcal 50+ years (1 of 2 - PCV) 1988 Lipid Panel 2004 Shingles Vaccine (Zoster) (1 of 2) 09/05/2019 Hemoglobin A1C 01/29/2023 07/30/2022 COVID-19 VACCINE (3 - season) 2023, 02/09/2021 Influenza Vaccine (#1) 2024 HIV Screening Completed 08/08/2022 Medical Devices Implanted Type Area Hull Drafter Device Identifier Shelf Expiration Date Model / Serial / Lot Fibergraft Mtrx 12.5cc [id number] - [id number] Implanted:Qty: 1 on 08/02/2022 by Alessandra Whitley MD at [facility] IMPLANTS N/A: Back [employer] 05/24/2024 [id number] / / [id number] Bone Fibers 5.0cc Pliafx Crtcl Bl-1800- - [id number] Implanted:Qty: 1 on 08/02/2022 by Alessandra Whitley MD at [facility] IMPLANTS N/A: Back LIFENET:LIFENET TRANSPLANT SRV 04/04/2027 BL-1800- / [id number] / Bone Vivigen Formable Cell [facility]-1599-002 - [id number] Implanted:Qty: 1 on 08/02/2022 by Alessandra Whitley MD at [facility] IMPLANTS N/A: Back LIFENET:LIFENET TRANSPLANT SRV 07/12/2023 BL-1600-002 / [id number] / Scr Spne Parrish Fix 6x50mm - [id number] Implanted:Qty: 6 on 08/02/2022 by Alessandra Whitley MD at [facility] IMPLANTS N/A: Back J &J:DEPUY:DEPUY SPINE / / Mis Yadira Ply Scrw Set Ti - [id number] Implanted:Qty: 6 on 08/02/2022 by Alessandra Whitley MD at [facility] IMPLANTS N/A: Back J &J:DEPUY:DEPUY SPINE / / Cage Exp Intbody 10x25 [id number] - [id number] Implanted:Qty: 2 on 08/02/2022 by Alessandra Whitley MD at [facility] IMPLANTS N/A: Back J &J:DEPUY:DEPUY SPINE [id number] / [id number] / Scar Pre Load 65mm 5 - [id number] Implanted:Qty: 2 on 08/02/2022 by Alessandra Whitley MD at [facility] IMPLANTS N/A: Back J &J:DEPUY:DEPUY SPINE / / Procedures Procedure Name Priority Date/Time Associated Diagnosis Comments HIV 1/2 AG/AB COMBO Routine 08/08/2022 7 :14 PM EDT HEMOGLOBIN A1C Routine 07/30/2022 9:32 AM EDT Preop testing from Last 3 Months or Most Recently Relevant to Health Maintenance Results * HIV 1/2 AG/AB Combo (08/08/2022 7:14 PM EDT) HIV-1 P24 Antigen Nonreactive Nonreactive 08/08/2022 9:23 PM EDT [facility] Comment: The Combo HIV procedure is [...] MD LAB BLOOD ORDERABLES Final Res ult Performing Organization Address [facility] Co de Phone Number [facility] [address] [phone] * Hemoglobin A1c (07/30/2022 9:32 AM EDT) Hemoglobin A1C 6.2 % 07/30/2022 12:34 PM EDT [facility] Comment: Hemoglobin A1C levels are related to mean glucose during the preceding 2-3 months. Less than 7% demonstrates glycemic control in diabetic patients. Hemoglobin AlC % Suggested Diagnosis > or = 6.5 Diabetic 5.7 - 6.4 Prediabetic <5.7 Non-diabetic eAVG Glucose 131.24 mg/dL 07/30/2022 12:34 PM EDT [facility] Blood Venipuncture / Unknown 07/30/2022 9:32 AM EDT 07/30/2022 10:13 AM EDT us Indra Rockwell MD LAB BLOOD ORDERABLES Final R esult Performing Organization Address [facility] Co de Phone Number [facility] [address] [phone] from Last 3 Months or Most Recently Relevant to Health Maintenance Insurance [facility] Advance Directives For more information, please contact: [phone] Documents on File Type Date Recorded Patient Records Technician Expl anation Advance Directives and Sandy g Will 07/30/2022 8:00 AM * Full Code (Latest Code Status on File) Date Activated Date Inactivated Comments 08/02/2022 3:30 PM 08/13/2022 4:14 PM Care Teams Slitter Scorer Cut Off Operator Relationship Specialty Start Date End Date Rachael Gregg, OPERATIONS ADMINISTRATIVE ASSISTANT [address] [place] [address] PCP - General Nurse Practitioner 07/19/23
--- OUTSIDE RECORDS SUMMARY | 2024-10-27 12:05 | XMS_ITS | Encounter Summary ---
Author Organization Healthcare Address [address] [place] [address] Care Team Providers Care Dog Licenser Name Role Phone Pcp, No Primary Care Provider Rachael Urrutia APRN Primary Care Provider [phone] Encounter Details Date Type Department Care Team (Late st Contact Info) Description 08/10/2022 Orders Only External Location [address] [place] [address] Provider, External Social History Tobacco Use Types [...] Description 11/16/2024 11:50 AM EDT Hospital Encounter [facility] Operating Room [address] [place] [address] Sergo Bunn MD [address] [place] [address] 11/16/2024 11:50 AM EDT - 11/16/2024 2:20 PM EDT [facility] Operating Room [address] [place] [address] Sergo Bunn MD [address] [place] [address] ARTHROPLASTY, HIP, TOTAL, ANTERIOR APPROACH [12587 (CPT )] 12/01/2024 10:20 AM EDT Office Visit [facility] [address], [address] [place] [address] Letha Rivera PA [address] [place] [address] 12/28/2024 11:00 AM EDT Office Visit [facility] [address], [address] [place] [address] Jacek Gregory MD [address] [place] [address] 12/29/2024 11:10 AM EDT Office Visit [facility] [address], [address] [place] [address] Sergo Bunn MD [address] [place] [address] Scheduled Procedures Name Priority Associated Diagnoses Date/Ti me ARTHROPLASTY, HIP, TOTAL, ANTERIOR APPROACH Primary osteoarthritis of right hip 11/16/2024 11:50 AM EDT documented as of this encounter Procedures Procedure Name Priority Date/Time Associated Diagnosis Comments CT THORACIC OUTSIDE IMAGES 08/10/2022 11:56 PM EDT documented in this encounter Results * CT THORACIC OUTSIDE IMAGES (08/10/2022 11:56 PM EDT) Anatomical Region Laterality Modality Computed Tomogra phy 08/10/2022 11:5 6 PM EDT us External Provider IMG CT PROCEDURES Final Result documented in this encounter Visit Diagnoses Not on filedocumented in this encounter Care Teams Dog Licenser Relationship Specialty Start Date End Date Pcp, [place] [address] PCP - General Family Medicine 2/28/24 3/26/24 Rachael Gregg APRN [address] [place] [address] PCP - General 07/10/23 documented as of this encounter
--- OUTSIDE RECORDS SUMMARY | 2024-10-27 12:05 | XMS_ITS | Encounter Summary ---
Author Organization Healthcare Address [address] [place] [address] Care Team Providers Care Hand Ironer Name Role Phone Pcp, No Primary Care Provider Rachael Urrutia APRN Primary Care Provider [phone] Encounter Details Date Type Department Care Team (Late st Contact Info) Description 08/10/2022 Orders Only External Location [address] [place] [address] Provider, External Social History Tobacco Use Types [...] 11/16/2024 11:50 AM EDT [facility] Operating Room [address] [place] [address] Sergo Bunn MD [address] [place] [address] 11/16/2024 11:50 AM EDT - 11/16/2024 2:20 PM EDT [facility] Operating Room [address] [place] [address] Sergo Bunn MD [address] [place] [address] ARTHROPLASTY, HIP, TOTAL, ANTERIOR APPROACH [33302 (CPT )] 12/01/2024 10:20 AM EDT Office Visit [facility] [address] [place] [address] Letha Rivera PA [address] [place] [address] 12/28/2024 11:00 AM EDT Office Visit [facility] [address] [place] [address] Jacek Gregory MD [address] [place] [address] 12/29/2024 11:10 AM EDT Office Visit [facility] [address], [address] [place] [address] Sergo Bunn MD [address] [place] [address] Scheduled Procedures Name Priority Associated [...] on filedocumented in this encounter Care Teams Hand Ironer Relationship Specialty Start Date End Date Pcp, [place] [address] PCP - General Family Medicine 2/28/24 3/26/24 Rachael Gregg APRN [address] [place] [address] PCP - General 07/10/23 documented as of this encounter
--- OUTSIDE RECORDS SUMMARY | 2024-10-27 12:05 | XMS_ITS | Encounter Summary ---
Author Organization Healthcare Address [address] [place] [address] Care Team Providers Care Electric Motor Analyst Name Role Phone Pcp, No Primary Care Provider Rachael Urrutia APRN Primary Care Provider [phone] Encounter Details Date Type Department Care Team (Late st Contact Info) Description 02/20/2023 Orders Only External Location [address] [place] [address] Provider, External Social History Tobacco Use Types [...] Description 11/16/2024 11:50 AM EDT Hospital Encounter [facility] S Operating Room [address] [place] [phone] Sergo Bunn MD [address] [place] [address] 11/16/2024 11:50 AM EDT - 11/16/2024 2:20 PM EDT Surgery [facility] S Operating Room [address] [place] [address] Sergo Bunn MD [address] [place] [address] ARTHROPLASTY, HIP, TOTAL, ANTERIOR APPROACH [[id number] (CPT )] 12/01/2024 10:20 AM EDT Office Visit [facility] [address] [place] [address] Letha Rivera PA [address] [place] [address] 12/28/2024 11:00 AM EDT Office Visit Medical [facility] [address], [address] [place] [address] Jacek Gregory MD [address] [place] [address] 12/29/2024 11:10 AM EDT Office Visit Medical [facility] [address], [address] [place] [address] Sergo Bunn MD [address] [place] [address] Scheduled Procedures Name Priority Associated Diagnoses Date/Ti me ARTHROPLASTY, HIP, TOTAL, ANTERIOR APPROACH Primary osteoarthritis of right hip 11/16/2024 11:50 AM EDT documented as of this encounter Procedures Procedure Name Priority Date/Time Associated Diagnosis Comments XR OUTSIDE IMAGES 02/20/2023 8:42 AM EST documented in this encounter Results * XR OUTSIDE IMAGES (02/20/2023 8:42 AM EST) Anatomical Region Laterality Modality Radiographic Jennifer ging 02/20/2023 8:42 AM EST us External Provider IMG XR PROCEDURES Final Result documented in this encounter Visit Diagnoses Not on filedocumented in this encounter Care Teams Electric Motor Analyst Relationship Specialty Start Date End Date Pcp, [place] [address] PCP - General Family Medicine 06/12/23 07/09/23 Rachael Gregg APRN [address] [place] [address] PCP - General 07/10/23 documented as of this encounter
--- OUTSIDE RECORDS SUMMARY | 2024-10-27 12:05 | XMS_ITS | Encounter Summary ---
Author Organization Healthcare Address [address] [place] [address] Care Team Providers Care Marine Pipefitter Name Role Phone Pcp, No Primary Care Provider Rachael Urrutia APRN Primary Care Provider [phone] Encounter Details Date Type Department Care Team (Late st Contact Info) Description 08/07/2022 Orders Only External Location [address] [place] [address] Provider, External Social History Tobacco Use Types [...] Description 11/16/2024 11:50 AM EDT Hospital Encounter [facility] S Operating Room [address] [place] [phone] Sergo Bunn MD [address] [place] [address] 11/16/2024 11:50 AM EDT - 11/16/2024 2:20 PM EDT Surgery [facility] S Operating Room [address] [place] [address] Sergo Bunn MD [address] [place] [address] ARTHROPLASTY, HIP, TOTAL, ANTERIOR APPROACH [[id number] (CPT )] 12/01/2024 10:20 AM EDT Office Visit Medical [facility] [address] [place] [address] Letha Rivera PA [address] [place] [address] 12/28/2024 11:00 AM EDT Office Visit [facility] [address] [place] [address] Jacek Gregory MD [address] [place] [address] 12/29/2024 11:10 AM EDT Office Visit Medical [facility] [address] [place] [address] Sergo Bunn MD [address] [place] [address] Scheduled Procedures Name Priority Associated Diagnoses Date/Ti me ARTHROPLASTY, HIP, TOTAL, ANTERIOR APPROACH Primary osteoarthritis of right hip 11/16/2024 11:50 AM EDT documented as of this encounter Procedures Procedure Name Priority Date/Time Associated Diagnosis Comments US OUTSIDE IMAGES 08/07/2022 11:29 AM EDT documented in this encounter Results * US OUTSIDE IMAGES (08/07/2022 11:29 AM EDT) Anatomical Region Laterality Modality Ultrasound 08/07/2022 11:2 9 AM EDT us External Provider IMG US PROCEDURES Final Result documented in this encounter Visit Diagnoses Not on filedocumented in this encounter Care Teams Marine Pipefitter Relationship Specialty Start Date End Date Pcp, [place] [address] PCP - General Family Medicine 06/12/23 07/09/23 Rachael Gregg APRN [address] [place] [address] PCP - General 07/10/23 documented as of this encounter
--- OUTSIDE RECORDS SUMMARY | 2024-10-27 12:05 | XMS_ITS | Encounter Summary ---
Author Organization [facility] Address [address] [place] [address] Care Team Providers Care Police Captain Precinct Name Role Phone GreggRachael sen Andrew OATES Primary Care Provider [phone] Reason for Visit * Reason Onset Date Comments HCN - Patient Message 10/26/2024 Encounter Details Date Type Department Care Team ([facility] st Contact Info) Description 10/26/2024 Telephone Medical Office Building [facility] [address] [facility] [place] [address] Sergo Bunn MD [address] [facility] [address] [place] [address] HCN - Patient Message Social History Tobacco Use Types Packs/Day Years [...] on file documented as of this encounter Miscellaneous Notes * Telephone Encounter - Sylvia Miller RN - 10/26/2024 1:06 PM EDT Called patient. Patient looked at lab orders but thought they 09/15/2024 not 09/15/2025. Lab orders still within date. Patient will take them to local hospital within next day or two. Patient states insurance has changed from [facility] medicaid to [facility] U-Card. Patient wanted to be sure we were aware prior to surgery. New insurance information: [facility] U Card Member ID number: [id number] Group number: [id number] * Telephone Encounter - Sara Murdock - 10/26/2024 12:56 PM EDT Clinical Concern/Question Reason for Call: Oni patient calling, he states his orders for pre-op lab work have and he is needing new/updated orders put in. Please advise Best contact number: [phone] (mobile) Optimal time of day to reach caller: ANYTIME Additional comments/information from caller: None Note: Please do not reply to this message. Follow-up communication and further actions as a result of this message need to be communicated with the patient directly, if the patient is not active onMyChart. If the patient is active on MyChart, they will receive notification of the communication/outcome via TrialPayt. documented in this encounter Plan of Treatment Upcoming Encounters Date Type Department Care Team (Latest Contact Info) Description 11/16/2024 11:50 AM EDT Hospital Encounter [facility] S Operating Room [address] [place] [address] Sergo Bunn MD [address] [address] 11/16/2024 11:50 AM EDT - 11/16/2024 2:20 PM EDT Surgery [facility] S Operating Room [address] [place] [address] Sergo Bunn MD [address] [place] [address] ARTHROPLASTY, HIP, TOTAL, ANTERIOR APPROACH [[id number] (CPT )] 12/01/2024 10:20 AM EDT Office Visit Medical [facility] [address] [place] [address] Letha Rivera PA [address] [place] [address] 12/28/2024 11:00 AM EDT Office Visit [facility] [address] [place] [address] Jacek Gregory MD [address] [place] [address] 12/29/2024 11:10 AM EDT Office Visit Medical [facility] [address] [place] [address] Sergo Bunn MD [address] [place] [address] Scheduled Procedures Name Priority Associated [...] documented as of this encounter Care Teams Police Captain Precinct Relationship Specialty Start Date End Date Rachael Gregg APRN [address] [place] [address] PCP - General 07/10/23 documented as of this encounter
--- OUTSIDE RECORDS SUMMARY | 2024-10-27 12:05 | XMS_ITS | Encounter Summary ---
Author Organization Healthcare Address [address] [place] [address] Care Team Providers Care Loan Specialist Name Role Phone Pcp, No Primary Care Provider Rachael Urrutia APRN Primary Care Provider [phone] Encounter Details Date Type Department Care Team (Late st Contact Info) Description 11/20/2022 Orders Only External Location [address] [place] [address] Provider, External Social History Tobacco Use Types [...] Description 11/16/2024 11:50 AM EDT Hospital Encounter [facility] S Operating Room [address] [place] [phone] Sergo Bunn MD [address] [place] [address] 11/16/2024 11:50 AM EDT - 11/16/2024 2:20 PM EDT Surgery [facility] Operating Room [address] [place] [address] Sergo Bunn MD [address] [place] [address] ARTHROPLASTY, HIP, TOTAL, ANTERIOR APPROACH [[id number] (CPT )] 12/01/2024 10:20 AM EDT Office Visit Medical [facility] [address] [place] [address] Letha Rivera PA [address] [place] [address] 12/28/2024 11:00 AM EDT Office Visit Medical [facility] [address] [place] [address] Jacek Gregory MD [address] [place] [address] 12/29/2024 11:10 AM EDT Office Visit Medical [facility] [address] [place] [address] Sergo Bunn MD [address] [place] [address] Scheduled Procedures Name Priority Associated Diagnoses Date/Ti me ARTHROPLASTY, HIP, TOTAL, ANTERIOR APPROACH Primary osteoarthritis of right hip 11/16/2024 11:50 AM EDT documented as of this encounter Procedures Procedure Name Priority Date/Time Associated Diagnosis Comments XR OUTSIDE IMAGES 11/20/2022 3:24 PM EDT documented in this encounter Results * XR OUTSIDE IMAGES (11/20/2022 3:24 PM EDT) Anatomical Region Laterality Modality Radiographic Jennifer ging 11/20/2022 3:24 PM EDT us External Provider IMG XR PROCEDURES Final Result documented in this encounter Visit Diagnoses Not on filedocumented in this encounter Care Teams Loan Specialist Relationship Specialty Start Date End Date Pcp, Lauren [address] [place] [address] PCP - General Family Medicine 06/12/23 07/09/23 Rachael Gregg APRN [address] [place] [address] PCP - General 07/10/23 documented as of this encounter
--- OUTSIDE RECORDS SUMMARY | 2024-10-27 12:05 | XMS_ITS | Encounter Summary ---
Author Organization Healthcare Address [address] [place] [address] Care Team Providers Care Candle Molder Machine Name Role Phone Rachael Gregg Andrew OATES Primary Care Provider [phone] Encounter Details Date Type Department Care Team (Latest Contact Info) Description 09/15/2024 Travel Social History Tobacco Use Types Packs/Day [...] [facility] S Operating Room [address] [place] [address] Sergo Bunn MD [address] [address] 11/16/2024 11:50 AM EDT - 11/16/2024 2:20 PM EDT Surgery [facility] S Operating Room [address] [place] [address] Sergo Bunn MD [address] [place] [address] ARTHROPLASTY, HIP, TOTAL, ANTERIOR APPROACH [[id number] (CPT )] 12/01/2024 10:20 AM EDT Office Visit Medical [facility] [address] [place] [address] Letha Rivera PA [address] [place] [address] 12/28/2024 11:00 AM EDT Office Visit Medical [facility] [address] [place] [address] Jacek Gregory MD [address] [place] [address] 12/29/2024 11:10 AM EDT Office Visit Medical [facility] [address] [place] [address] Sergo Bunn MD [address] [place] [address] Scheduled Procedures Name Priority Associated [...] documented as of this encounter Care Teams Candle Molder Machine Relationship Specialty Start Date End Date Rachael Gregg APRN [address] [place] [address] PCP - General 07/10/23 documented as of this encounter
[2024-10-27 12:31] LABS: Hematocrit 44.9 % (42.0-52.0); Hemoglobin 15.3 g/dL (14.1-18.0); Immature Granulocytes % 0.1 %; Mean Corpuscular HGB Conc 34.1 g/dL (31.8-35.4); Mean Corpuscular Hemoglobin 29.0 pg (27.0-31.2); Mean Corpuscular Volume 85.0 fl (80-94); Nucleated Red Blood Cells % 0 %; Platelet Count 202 K/mm3 (142-424); Red Blood Count 5.28 M/mm3 (4.60-6.20); Red Cell Distribution Width-SD 37.9 fL; White Blood Count 7.0 K/mm3 (4.8-10.8)
[2024-10-27 13:07] LABS: Albumin Level 4.7 g/dl (3.5-5.0); Anion Gap 18.8 mEq/L (5-15); Blood Urea Nitrogen 17 mg/dl (9-20); Calcium 9.8 mg/dl (8.4-10.2); Carbon Dioxide 26 mmol/L (22.0-30.0); Chloride 101 mmol/L (98-107); Creatinine,Serum 1.00 mg/dl (0.66-1.25); Estimated Glomerular Filt Rate 78 ml/min (>60); GFR (African American) 94 ML/MIN (>60); Glucose 153 mg/dl (74-100); Potassium 3.8 mmoL/L (3.5-5.1); Sodium 142 mmol/L (136-145)
[2024-10-27 13:32] LABS: Hemoglobin A1C 7.8 % (4.0-6.0)
== END 2024-10-27 23:59 | disposition home or self-care (01) ==
LOC: LAB 12:02
PROVIDERS: PCP Nurse Practitioner Family; Visit Provider Orthopaedic Surgery Adult Reconstructive Orthopaedic Surgery
DX: M16.11 Unilateral primary osteoarthritis, right hip; E11.9 Type 2 diabetes mellitus without complications; Z01.810 Encounter for preprocedural cardiovascular examination
CPT/HCPCS: 36415; 80048; 80323; 82040; 83036; 85025

== ENCOUNTER 2024-12-02 08:00 | Outpatient (RCR) | payer MEDICARE, SELFPAY | END 2024-12-02 23:59 | disposition home or self-care (01) | LOC: PT 08:00 | PROVIDERS: Visit Provider Nurse Practitioner Family | DX: M16.11 Unilateral primary osteoarthritis, right hip (principal) | CPT/HCPCS: 97110; 97163 ==

== ENCOUNTER 2025-01-05 11:00 | Outpatient (RCR) | payer MEDICARE, SELFPAY | END 2025-01-05 23:59 | disposition home or self-care (01) | LOC: PT 11:00 | PROVIDERS: Visit Provider Nurse Practitioner Family | DX: M16.11 Unilateral primary osteoarthritis, right hip (principal) | CPT/HCPCS: 97110; 97164; 97530 ==

== ENCOUNTER 2025-03-03 10:40 | Outpatient (CLI) | payer MEDICARE, MEDICAID, SELFPAY ==
[2025-03-03 14:53] LABS: Hemoglobin A1C 6.6 % (4.0-6.0)
[2025-03-03 15:17] LABS: Alanine Aminotransferase 26 U/L (12-78); Albumin Level 4.5 g/dl (3.5-5.0); Albumin/Globulin Ratio 1.7 (1.1-1.8); Alkaline Phosphatase 103 U/L (38-126); Anion Gap 10.4 mEq/L (5-15); Aspartate Amino Transferase 38 U/L (17-59); Bilirubin,Total 0.6 mg/dl (0.2-1.3); Blood Urea Nitrogen 13 mg/dl (9-20); Calcium 9.5 mg/dl (8.4-10.2); Carbon Dioxide 29 mmol/L (22.0-30.0); Chloride 101 mmol/L (98-107); Cholesterol 117 mg/dl (140-200); Creatinine,Serum 1.10 mg/dl (0.66-1.25); Estimated Glomerular Filt Rate 69 ml/min (>60); GFR (African American) 84 ML/MIN (>60); Globulin 2.6 g/dL (1.3-3.2); Glucose 97 mg/dl (74-100); HDL Cholesterol 57 mg/dl (40-60); Magnesium 2.0 mg/dl (1.6-2.3); Potassium 4.4 mmoL/L (3.5-5.1); Sodium 136 mmol/L (136-145); Total Protein,Serum 7.1 g/dl (6.3-8.2); Triglycerides 46 mg/dl (30-150)
[2025-03-03 15:38] LABS: 25-OH Vitamin D, Total 59.7 ng/mL (30-100)
== END 2025-03-03 23:59 | disposition home or self-care (01) ==
LOC: LAB.DROPOF 03-04 10:16
PROVIDERS: PCP Nurse Practitioner Family; Visit Provider Nurse Practitioner Family
DX: M25.50 Pain in unspecified joint (principal); E11.9 Type 2 diabetes mellitus without complications; Z12.5 Encounter for screening for malignant neoplasm of prostate
CPT/HCPCS: 80053; 80061; 82306; 83036; 83735; G0103

== ENCOUNTER 2025-03-10 14:00 | Outpatient (RCR) | payer MEDICARE, MEDICAID, SELFPAY | END 2025-03-10 23:59 | disposition home or self-care (01) | LOC: PT 14:00 | PROVIDERS: Visit Provider Student in an Organized Health Care Education/Training Program | DX: M54.50 Low back pain, unspecified (principal); G89.29 Other chronic pain | CPT/HCPCS: 97110; 97163 ==

== ENCOUNTER 2025-03-10 14:01 | Outpatient (RCR) | payer MEDICARE, MEDICAID, SELFPAY ==
--- NOTE | 2025-03-10 15:38 | HMH.OTOPEV ---
OT Evaluation Rehab OT Outpatient Eval Start: 03/10/25 14:29 Freq: Status: Active Protocol: Document 03/10/25 14:31 SHERIN (Rec: 03/10/25 15:38 SHERIN [id number]) E-signed By No Domínguez, OT Outpatient Therapy Subjective History Subjective History Pt is a 54 yr old male who presents to initial OT evaluation due to bilateral shoulder pain. During evaluation, pt expressed how L shoulder is in more pain than right shoulder. Pt has hx of mx surgeries including carpal tunnel bilaterally. Pt reported they have difficulty sleeping at night due to pain in shoulder and elbow on L side. Pt reported they have not had an MRI. Pt does not work. Pt reported pain at 4 out of 10 today. Pt reported they are scheduled to have more surgeries including abdomen and back. pt reported they are R handed. New diagnosis of No cancer in past 12 months? Chief Complaint Pain,Stiff,Weakness,Decreased Tube Cutter Strength,Decreased Coordination Symptom Type Ache Symptoms Relieved By Rest/Positioning,Heat,Prescription Meds,Activity Symptoms Aggravated Physical Activity,Lifting By Prior Functional None Limitations Current Functional Reaching,Lifting,Housework,Dressing,Driving,Sleeping, Limitations Recreation Activity Symptom Description Constant but Variable Level of pain today 4 (0-10) Pain scale - at its 3 best (0-10) Pain scale - at its 7 worst (0-10) Shoulder/Elbow Eval Shoulder Objective Measurements Palpation Tenderness tenderness shoulder bilateral exam standard tenderness over the bilateral SA bursa shoulder exam standard Shoulder Palpation Muscle Guarding Findings Shoulder ROM Right Shoulder Abduction 165 Active Range of Motion (degrees) Shoulder Flexion 160 Active Range of Motion (degrees) Query Text: Shoulder External 60 Rotation Active Range of Motion ( degrees) Shoulder Internal 30 Rotation Active Range of Motion ( degrees) pain with active ROM bilateral shoulder exam standard full ROM shoulder bilateral exam standard Left Shoulder ROM Pain Limitations Shoulder Abduction 160 Active Range of Motion (degrees) Shoulder Flexion 155 Active Range of Motion (degrees) Query Text: Shoulder External 55 Rotation Active Range of Motion ( degrees) Shoulder Internal 40 Rotation Active Range of Motion ( degrees) pain with active ROM bilateral shoulder exam standard full ROM shoulder bilateral exam standard Shoulder MMT Right Shoulder Abduction 3 Fair Strength Grade Shoulder Flexion 3 Fair Strength Grade Shoulder External 3 Fair Rotation Strength Grade Shoulder Internal 3 Fair Rotation Strength Grade Shoulder Strength Sitting Patient Testing Position Left Shoulder Abduction 3- Fair- Strength Grade Shoulder Flexion 3- Fair- Strength Grade Shoulder External 3- Fair- Rotation Strength Grade Shoulder Internal 3- Fair- Rotation Strength Grade Shoulder Strength Sitting Patient Testing Position Elbow Objective Measurements Wrist/Hand Eval Tube Cutter/Pinch Strength Right Tube Cutter Strength 62 Measurement (lbs) Left Tube Cutter Strength 57 Measurement (lbs) QuickDASH Activities Please rate your ability to do the following activities in the last week by selecting the number below the appropriate response. 1. Open a tight or Moderate difficulty new jar. 2. Do heavy Moderate difficulty global security architect (e. g., wash headley, floors). 3. Carry a shopping Moderate difficulty bag or briefcase. 4. Wash your back. Severe difficulty 5. Use a knife to Moderate difficulty cut food. 6. Recreational Moderate difficulty activities in which you take some force or impact through your arm, shoulder, or hand (e.g., golf, hammering, tennis, etc.). 7. During the past Moderately week, to what extent has your arm, shoulder or hand problem interfered with your normal social activities with family, friends , neighbors or groups? 8. During the past Slightly limited week, were you limited in your work or other regular daily activites as a result of your arm, shoulder or hand problem? 9. Arm, shoulder or Moderate hand pain. 10. Tingling (pins Moderate and needles) in your arm, shoulder or hand. 11. During the past Severe difficulty week, how much difficulty have you had sleeping because of the pain in your arm, shoulder or hand? Quick DASH 34 OT Patient Goals OT Patient Goals OT Short Term 1. Pt will increase left shoulder flexion to 160 Patient Goals degrees, and right shoulder flexion to 165 degrees in order to complete daily overhead tasks independently ~ 50% of the time. 2. Pt will increase L shoulder abduction to 165 degrees and right shoulder abduction to 170 degrees in order to complete upper body dressing independently ~50% of the time. 3. Pt will increase L shoulder ER/IR to 60 degrees (ER) and 45 degrees (IR), and R shoulder ER/IR to 65 (ER) and 35 degrees (IR) in order to complete lower body dressing (putting on and taking off belt) independently ~50% of the time. 4. Pt will increase strength to 3+/5 throughout left shoulder and right shoulder in order to complete heavier household tasks (laundry, mopping, vacuuming) independently ~50% of the time. 5. Pt will verbalize decreased pain levels at worst in L/R shoulder to a 6/10 in order to complete daily ADLs independently ~50% of the time. 6. Pt will demonstrate improved endurance by completing bilateral shoulder exercises for ~20 minutes prior to rest break in order to increase his tolerance for daily work activities. 7. Pt will demonstrate independence with HEP of AAROM exercises to increase overall functional use of bilateral UE in daily activities ~75% of the time. 8. Pt will demonstrate increased employment attorney strength in R hand to 65 lbs to demo increased strength needed for completion of ADLs and IADLs 50% of time. OT [facility] Patient 1. Pt will increase left shoulder flexion to 165 Goals degrees, and right shoulder flexion to 170 degrees in order to complete daily overhead tasks independently ~ 50% of the time. 2. Pt will increase L shoulder abduction to 170 degrees and right shoulder abduction to 175 degrees in order to complete upper body dressing independently ~50% of the time. 3. Pt will increase L shoulder ER/IR to 65 degrees (ER) and 50 degrees (IR), and R shoulder ER/IR to 70 (ER) and 40 degrees (IR) in order to complete lower body dressing (putting on and taking off belt) independently ~50% of the time. 4. Pt will increase strength to 4/5 throughout left shoulder and right shoulder in order to complete heavier household tasks (laundry, mopping, vacuuming) independently ~50% of the time. 5. Pt will verbalize decreased pain levels at worst in L/R shoulder to a 5/10 in order to complete daily ADLs independently ~50% of the time. 6. Pt will demonstrate improved endurance by completing bilateral shoulder exercises for ~25 minutes prior to rest break in order to increase his tolerance for daily work activities. 7. Pt will demonstrate independence with HEP of advanced exercises to increase overall functional use of bilateral UE in daily activities ~75% of the time. 8. Pt will demonstrate increased employment attorney strength in R hand to 75 lbs to demo increased strength needed for completion of ADLs and IADLs 50% of time. OT Outpatient Assessment Impairments Problems/Impairments Palpation Tenderness,Impaired Range of Motion,Impaired Strength,Impaired Endurance,Impaired Lifting,Impaired Dressing,Impaired Shower/Bathing,Impaired Household Care,Impaired Recreational Activities,Impaired Work Activities,Subjective C/O Pain,Impaired Self Care/Self Management Prognosis Rehab Potential Good Clinical Impression Consistent with Yes Diagnosis Outpatient Therapy Plan of Care Treatment Plan May Include Therapeutic Exercise Yes Including Home Exercise Program Manual Therapy Yes Techniques Neuromuscular Re- Yes education Therapeutic Yes Activities to Return to Previous Functional/Work Level ADL/Self Care Yes Education Thermal Modalities Yes Electrical Yes Stimulation Ultrasound/ Yes Phonophoresis Iontophoresis Yes Parrafin Yes Orthotics/Bracing/ Yes Splinting Group Therapy for Yes Medicare Eval/Re-Eval Yes Frequency Times per week 2 Duration Number of Weeks 8 Addendums This patient is a No candidate for social or vocational rehab ? Patient/Guardian Yes verbally acknowledges understanding of treatment program and consents to further treatment? Patient/Guardian Yes verbally acknowledges understanding of diagnosis, prognosis and goals for treatment? Eval Complexity OT Charge 70191 - Moderate Complexity PHYSICIAN CERTIFICATION: I certify the specified therapy services for Lewis Rubin Dustin are required, authorized, and reviewed every 30 days.
== END 2025-03-10 23:59 | disposition home or self-care (01) ==
LOC: OT 14:01
PROVIDERS: PCP Nurse Practitioner Family; Visit Provider Nurse Practitioner Family
DX: M25.512 Pain in left shoulder (principal); M25.511 Pain in right shoulder
CPT/HCPCS: 97166

== ENCOUNTER 2025-03-25 11:00 | Outpatient (RCR) | payer MEDICARE, MEDICAID, SELFPAY | END 2025-03-25 23:59 | disposition home or self-care (01) | LOC: OT 11:00 | PROVIDERS: PCP Nurse Practitioner Family; Visit Provider Nurse Practitioner Family | DX: M25.511 Pain in right shoulder (principal); M25.512 Pain in left shoulder | CPT/HCPCS: 97014; 97032; 97110; 97140; 97530; G0283 ==

== ENCOUNTER 2025-03-31 11:00 | Outpatient (RCR) | payer MEDICARE, MEDICAID, SELFPAY | END 2025-03-31 23:59 | disposition home or self-care (01) | LOC: PT 11:00 | PROVIDERS: PCP Nurse Practitioner Family; Visit Provider Student in an Organized Health Care Education/Training Program | DX: M54.50 Low back pain, unspecified (principal); G89.29 Other chronic pain | CPT/HCPCS: 97110 ==